=== PATIENT | female | born 1955 | race Caucasian/White ===

== ENCOUNTER → 2018-02-05 | Outpatient (CLI) | payer BC, MEDICARE | LOC: M CARPUL 09:29 | DX: I51.81 Takotsubo syndrome (principal); E11.9 Type 2 diabetes mellitus without complications; Z79.4 Long term (current) use of insulin | CPT/HCPCS: 93306 ==

== ENCOUNTER 2018-08-23 12:48 | Inpatient (IN) | payer BC, MEDICARE ==
[~2018-08-23] VITALS: Ht 160 cm; Wt 39.7 kg
[2018-08-23] MEDS ORDERED: ONDANSETRON 4MG/2ML VIAL (J2405) IV ONE (13:15)
[2018-08-23] MEDS ORDERED: NS 1,000 ML IV ONE (13:15)
[2018-08-23 13:53] LABS: BASO # 0.1 10^3/uL (0.0-0.2); BASO % 0.3 % (0.0-1.0); HEMATOCRIT 36.8 % (36.0-47.0); HEMOGLOBIN 12.7 g/dl (12.0-15.5); LYMPH # 1.3 10^3/uL (1.5-4.5); LYMPH % 5.5 % (24.0-44.0); MEAN CORPUSCULAR HEMOGLOBIN 30.6 pg (27.0-33.0); MEAN CORPUSCULAR HGB CONC 34.5 g/dl (32.0-36.5); MEAN CORPUSCULAR VOLUME 88.7 fl (80.0-96.0); MONO % 8.8 % (0.0-5.0); NEUTROPHILS # 19.3 10^3/uL (1.8-7.7); NEUTROPHILS % 84.4 % (36.0-66.0); PLATELET COUNT, AUTOMATED 319 10^3/uL (150-450); RED BLOOD COUNT 4.15 10^6/uL (4.00-5.40); WHITE BLOOD COUNT 22.9 10^3/uL (4.0-10.0)
[2018-08-23 14:22] LABS: ALBUMIN 2.9 GM/DL (3.2-5.2); ALT/SGPT 30 U/L (12-78); AMYLASE 16 U/L (25-115); BILIRUBIN,DIRECT 0.3 MG/DL (0.0-0.2); BILIRUBIN,TOTAL 0.8 MG/DL (0.2-1.0); BLOOD UREA NITROGEN 24 MG/DL (7-18); CALCIUM LEVEL 8.8 MG/DL (8.8-10.2); CARBON DIOXIDE LEVEL 21 MEQ/L (21-32); CHLORIDE LEVEL 95 MEQ/L (98-107); CPK CREATINE PHOSPHOKINASE 217 U/L (26-192); CREATININE FOR GFR 0.72 MG/DL (0.55-1.30); GLOMERULAR FILTRATION RATE > 60.0 (>45); GLUCOSE, FASTING 188 MG/DL (70-100); LIPASE 42 U/L (73-393); MB/CK RELATIVE INDEX 1.15 (< OR =4); SODIUM LEVEL 133 MEQ/L (136-145); TOTAL PROTEIN 6.8 GM/DL (6.4-8.2); TROPONIN I < 0.02 NG/ML (< 0.10)
--- NOTE | 2018-08-23 14:22 | REP ---
Chest x-ray: Two views. History: Abdominal pain. Comparison chest x-ray: April 29, 2015. Findings: The lungs are hyperinflated consistent with COPD. This is not a new finding. There is however a new density and fullness in the right hilus with a linear opacity in the right upper lobe consistent with atelectasis. The minor fissure is elevated. The findings are suspicious for a central pulmonary malignancy with secondary atelectasis in the right upper lobe. CT scanning should be considered. Lung vickers are otherwise clear. Heart size is normal. The patient is extremely thin. Impression: Fullness in the right hilus with upward retraction and atelectasis in the right upper lobe. Suspect a central right upper lobe malignancy with secondary atelectasis. Consider chest CT. Hyperinflation consistent with COPD. Otherwise unchanged. Electronically Signed by Tee Goodman MD 08/23/2018 02:39 P
[2018-08-23 14:32] LABS: INFLUENZA A AMPLIFICATION NEGATIVE (NEGATIVE); INFLUENZA B AMPLIFICATION NEGATIVE (NEGATIVE)
[2018-08-23] MEDS ORDERED: ISOVUE-370 76% 100ML VIAL (Q9967) As Ordered ONE (14:44)
--- NOTE | 2018-08-23 15:21 | REP ---
Clinical: Abdominal pain with nausea and vomiting. Technique: Axial contrast enhanced images from the lung bases to the pubic symphysis using 100 ml Isovue 370 intravenous contrast material with coronal and sagittal re-formations. Comparison: None. Findings: Ill-defined alveolar opacities primarily involving the left base and to a much lesser extent the right base likely represent acute pneumonia and should be correlated clinically. Liver, spleen, atrophic pancreas, gallbladder, right adrenal gland and bilateral kidneys appear normal. 2.4 cm left adrenal mass cannot be further classified by current examination. The enteric system is without obstruction or acute inflammatory process. Bladder is unremarkable. Evidence of prior hysterectomy noted. No ascites. No free air. No obvious adenopathy. Abdominal aorta and vasculature demonstrates atherosclerotic changes without aneurysm or dissection. Musculoskeletal structures are intact. Impression: 1. Ill-defined basilar lung opacities (left greater than right) suggest acute pneumonia and require follow-up and correlation. 2. 2.4 cm heterogeneous left adrenal mass cannot be further characterized by current examination. Differential diagnosis would include atypical adenoma as well as malignancy. 3. No further acute abdominopelvic pathology appreciated. Electronically Signed by Dinesh Mckeon MD 08/23/2018 03:11 P
[2018-08-23] MEDS ORDERED: ESCI20TA PO (15:45)
[2018-08-23] MEDS ORDERED: SIMV40TA2 PO (15:45)
[2018-08-23] MEDS ORDERED: CARV3.12 PO (15:45)
[2018-08-23] MEDS ORDERED: DICY20TA PO (15:45)
[2018-08-23] MEDS ORDERED: LISI-1046 PO (15:45)
[2018-08-23] MEDS ORDERED: PANT40TA3 PO (15:45)
[2018-08-23] MEDS ORDERED: GABA-843 PO (15:45)
[2018-08-23] MEDS ORDERED: MONT10TA2 PO (15:45)
--- NOTE | 2018-08-23 15:46 | REP ---
CT chest with IV contrast: History: Rule out right lung malignancy. Comparison is made with today's chest x-ray which is abnormal. CT contrast dose: 99 mL of intravenous Isovue 370. CT findings: There is no evidence of pleural or pericardial effusion. There is a band-like area of consolidation with volume loss in the right upper lobe. The minor fissure is retracted upward. There is some spiculation along the superior aspect of this which could reflect a neoplastic lesion. The spiculated area measures 2.6 cm in greatest diameter. Central to this is a band-like area of opacity with some adjacent consolidation. There is a tessa-carinal adenopathy and subcarinal adenopathy. There is some narrowing of the bronchus intermedius and there is obstruction or narrowing of segmental upper lobe bronchi centrally. This suggests bronchogenic malignancy. The superior vena cava is patent although narrowed at this level just above the right atrium. There are a few normal-sized AP window region lymph nodes in the left mediastinum. The subcarinal node measures 1.6 x 2.3 cm. There is some increased peribronchovascular markings in the left lower lobe and lingula which may reflect inflammatory changes. A small nonsolid partially cystic nodule is seen in the left upper lobe. This measures 12 mm. There is a left adrenal mass with heterogeneous enhancement suspicious for metastasis. This measures 2.7 x 2.1 cm. Visualized upper abdominal structures are otherwise unremarkable. Bone window settings show no bony destructive lesion. 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 There are inflammatory changes in the left lower lobe and left upper lobe. 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 Consider histologic sampling. Electronically Signed by Tee Goodman MD 08/23/2018 04:26 P
[2018-08-23] MEDS ORDERED: PROMETHAZINE INJ 25 MG/ML VIAL (J2550) IV ONE (16:00)
[2018-08-23] MEDS ORDERED: LevoFLOXacin IV 750 MG in APPROPRIATE DILUENT 1 EA IV ONE (16:00)
[2018-08-23] MEDS ORDERED: VITA100066 PO (16:15)
[2018-08-23] MEDS ORDERED: VITA500T PO (16:15)
[2018-08-23] MEDS ORDERED: ASPI81TA26 PO (16:15)
[2018-08-23] MEDS ORDERED: ZOFR4TAB16 PO (16:15)
[2018-08-23] MEDS ORDERED: WOMETAB2 PO (16:15)
[2018-08-23] MEDS ORDERED: VITA400C67 PO (16:15)
[2018-08-23] MEDS ORDERED: TRES1INJ2 SC (16:15)
[2018-08-23] MEDS ORDERED: INSUH10VL SC (16:15)
[2018-08-23] MEDS ORDERED: MAALOX 30 ML SUSP *UDC PO PRN (16:45)
[2018-08-23] MEDS ORDERED: MOM 30ML SUSPENSION UDC PO PRN (16:45)
[2018-08-23] MEDS ORDERED: ACETAMINOPHEN TAB 650MG DOSE (2X325MG) PO PRN (16:45)
[2018-08-23] MEDS ORDERED: DEXTROSE 50% 50 ML SYRINGE IV PRN (17:00)
[2018-08-23] MEDS ORDERED: GLUCOSE 4 GM CHEW TABLET PO PRN (17:00)
[2018-08-23] MEDS ORDERED: GLUCAGON FOR INJ 1 MG VIAL (J1610) SC PRN (17:00)
--- NOTE | 2018-08-23 17:03 | HPEPDOC ---
General Date of Admission Primary Care Physician: A Attending Physician: TREVOR STYLES MD Chief Complaint The patient is a 63-year-old female admitted with a reason for visit of Vomiting / Loss Of Appetite. Source: Patient, Family Exam Limitations: No limitations Timing/Duration: Day(s) (2 days) History of Present Illness This is a 63 years old white female with past medical history of multiple medical problems including COPD, diabetes mellitus, hypertension, asthma, came to ER with chief complaint of nausea, vomiting since last 2 days. Patient was unable to keep anything down. Denies any shortness of breath or other respiratory symptoms. Denies any weight loss and lost few months. No fever, no abdominal pain Home Medications Scheduled (Tresiba Flextouch) 100 Unit/Ml Inj, 10 UNIT SC DAILY, (Reported) (Womens 50+ Multi Vitamin) 1 Tab Tab, 1 TAB PO DAILY, (Reported) Ascorbic Acid (Vitamin C) 500 Mg Tab, 500 MG PO BID, (Reported) Aspirin (Aspirin 81) 81 Mg Tab, 81 MG PO DAILY, (Reported) Carvedilol (Carvedilol) 3.125 Mg Tab, 3.125 MG PO BID, (Reported) Cholecalciferol (Vitamin D) 1,000 Unit Tab, 1,000 UNIT PO DAILY, (Reported) Dicyclomine HCl (Dicyclomine HCl) 20 Mg Tab, 20 MG PO WM, (Reported) Escitalopram Oxalate (Escitalopram Oxalate) 20 Mg Tab, 20 MG PO DAILY, (Reported) Gabapentin (Gabapentin) 300 Mg Cap, 300 MG PO TID, (Reported) Insulin Aspart (Novolog) 100 U/Ml Inj, 1 DOSE SC WM, (Reported) PER SLIDING SCALE Lisinopril (Lisinopril) 2.5 Mg Tab, 2.5 MG PO QHS, (Reported) Montelukast Sodium (Montelukast Sodium) 10 Mg Tab, 10 MG PO QHS, (Reported) Pantoprazole Sodium (Pantoprazole Sodium) 40 Mg Tab, 40 MG PO QPM, (Reported) Simvastatin - High Dose (Simvastatin) 40 Mg Tab, 40 MG PO QHS, (Reported) Vitamin E (Vitamin E-400) 400 Unit Cap, 400 UNIT PO DAILY, (Reported) Scheduled PRN Ondansetron HCl (Zofran) 4 Mg Tab, 4 MG PO TID PRN for NAUSEA OR VOMITING, (Reported) Allergies Coded Allergies: Penicillins (Verified Allergy, Unknown, 08/23/18) Sulfa (Sulfonamide Antibiotics) (Verified Allergy, Unknown, 08/23/18) Past Medical History Medical History Diabetes mellitus, hypertension, hyperlipidemia, asthma, COPD Surgical History None Family History Significant Family History: No pertinent family hx Social History * Smoker: former Smoker, quit greater than 1 year Review of Systems Constitutional: Denies: Chills, Fever, Night Sweats Eyes: Denies: Pain, Vision change ENT: Denies: Head Aches, Ear Pain, Dysphagia Skin: Denies: Rash, Lesions, Breakdown Pulmonary: Denies: Dyspnea, Cough Cardiovascular: Denies: Chest Pain, Palpitations, Orthopnea, Paroxysmal Noc. Dyspnea, Lt Headedness Gastrointestinal: Reports: Nausea, Vomiting; Denies: Abdominal Pain, Diarrhea Genitourinary: Denies: Dysuria, Frequency, Incontinence, Retention Hematologic: Denies: Bruising, Bleeding Excessively Musculoskeletal: Denies: Neck Pain, Back Pain, Joint Pain, Muscle Pain, Spasms Neurological: Denies: Weakness, Numbness, Change in speech, Confusion Psych: Reports: Mood Normal; Denies: Depression, Memory Issues Physical Examination General Exam: Positive: Alert, No Acute Distress Eye Exam: Positive: PERRLA, Conjunctiva & lids normal, EOMI; Negative: Sclera icteric ENT Exam: Positive: Atraumatic, Mucous membr. moist/pink, Pharynx Normal Neck Exam: Positive: Supple; Negative: JVD, thyromegaly Chest Exam: Positive: Clear to auscultation, Normal air movement Heart Exam: Positive: Rate Normal, Regular Rhythm, Normal S1, Normal S2; Negative: Murmurs, Rubs Telemetry: Positive: No significant arrhythmia Abdomen Exam: Positive: Normal bowel sounds, Soft; Negative: Tenderness, Hepatospenomegaly Extremity Exam: Positive: Normal pulses; Negative: Clubbing, Cyanosis, Edema Skin Exam: Positive: Nl turgor and temperature; Negative: Breakdown, Lesion Neuro Exam: Positive: Normal Gait, Normal Speech, Cranial Nerves 3-12 NL, Reflexes 2+ Psych Exam: Positive: Mental status NL, Mood NL, Oriented x 3 Vital Signs Vital Signs Date Time Temp Pulse Resp B/P (MAP) Pulse Ox O2 Delivery O2 Flow Rate FiO2 08/23/18 12:59 08/23/18 12:48 96.2 88 18 98 Room Air Laboratory Data Labs 24H Laboratory Tests 2 08/23/18 13:02: Bedside Glucose (Misc Panel) 173H 08/23/18 13:38: Immature Granulocyte % (Auto) 1.0, White Blood Count 22.9H, Red Blood Count 4.15, Hemoglobin 12.7, Hematocrit 36.8, Mean Corpuscular Volume 88.7, Mean Corpuscular Hemoglobin 30.6, Mean Corpuscular Hemoglobin Concent 34.5, Red Cell Distribution Width 12.8, Platelet Count 319, Neutrophils (%) (Auto) 84.4H, Lymphocytes (%) (Auto) 5.5L, Monocytes (%) (Auto) 8.8H, Eosinophils (%) (Auto) 0.0, Basophils (%) (Auto) 0.3, Neutrophils # (Auto) 19.3H, Lymphocytes # (Auto) 1.3L, Monocytes # (Auto) 2.0H, Eosinophils # (Auto) 0.0, Basophils # (Auto) 0.1, Nucleated Red Blood Cells % (auto) 0.0, Anion Gap 17H, Glomerular Filtration Rate > 60.0, Calcium Level 8.8, Aspartate Amino Transf (AST/SGOT) 32, Alanine Aminotransferase (ALT/SGPT) 30, Alkaline Phosphatase 160H, Total Bilirubin 0.8, Direct Bilirubin 0.3H, Total Creatine Kinase 217H, Creatine Kinase MB 2.0, Creatine Kinase MB Relative Index 1.15, Troponin I < 0.02, Total Protein 6.8, Albumin 2.9L, Albumin/Globulin Ratio 0.74L, Amylase Level 16L, Lipase 42L 08/23/18 13:39: Lactic Acid Level 2.0, Influenza Type A (RT-PCR) NEGATIVE, Influenza Type B (RT- PCR) NEGATIVE, Respiratory Syncytial Virus (RT-PCR NEGATIVE 08/23/18 16:05: Bedside Glucose (Misc Panel) 197H CBC/BMP Laboratory Tests 08/23/18 13:38 Red Blood Count 4.15, Mean Corpuscular Volume 88.7, Mean Corpuscular Hemoglobin 30.6, Mean Corpuscular Hemoglobin Concent 34.5, Red Cell Distribution Width 12.8, Neutrophils (%) (Auto) 84.4 H, Lymphocytes (%) (Auto) 5.5 L, Monocytes (%) (Auto) 8.8 H, Eosinophils (%) (Auto) 0.0, Basophils (%) (Auto) 0.3, Neutrophils # (Auto) 19.3 H, Lymphocytes # (Auto) 1.3 L, Monocytes # (Auto) 2.0 H, Eosinophils # (Auto) 0.0, Basophils # (Auto) 0.1 Microbiology Microbiology 08/23/18 Blood Culture, Received Pending 08/23/18 Blood Culture, Received Pending Problems (1) Pneumonia Status: Acute Response to Treatment: Compensated Problem Text: 63 years old white female with past medical history of COPD, asthma, ex-smoker, quit about 30 years ago was diagnosed with a right upper lobe mass and possible pneumonia. Patient is cachectic looking, but does not give any history of respiratory symptoms or weight loss Admit patient to medical floor as inpatient IV fluid normal saline at 75 mL per hour IV PPI IV Zofran when necessary Patient did receive 1 dose of Levaquin. Continue the same Pneumonia most likely has postobstructive in nature, discussed with Dr. Patterson. 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 There are inflammatory changes in the left lower lobe and left upper lobe. 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 Consider histologic sampling. Guest discussed with Dr. Patterson, the patient gets the bronchoscopy done and a biopsy performed in oncology can be called in for staging of the disease and further management. I discussed with patient and her kindergarten teacher at the bedside and informed them about the mass and also informed them about further workup needed and they both agreed Plan / VTE VTE Prophylaxis Ordered?: Yes VTE Exclusion Mechanical Proph: Other (bilateral SCDs) TREVOR STYLES MD Aug 23, 2018 17:03
[2018-08-23] MEDS: HumaLOG INSULIN (NovoLOG) PER UNIT SC SCH ×2 (18:03→21:00)
[2018-08-23] MEDS: NS 1,000 ML IV SCH (18:52)
[2018-08-23 19:00] VITALS: BP 150/66
[2018-08-23] MEDS ORDERED: HEPARIN SOD (PORCINE) 5000 UNITS/ML VIAL SC SCH (20:00)
[2018-08-23] MEDS ORDERED: HumaLOG INSULIN (NovoLOG) PER UNIT SC ONE (20:00)
[2018-08-23] MEDS ORDERED: PANTOPRAZOLE 40MG TAB (PROTONIX) PO SCH (21:00)
--- NOTE | 2018-08-23 21:10 | ECGEPIP ---
Stationary ECG Study [facility] - ED Test Date: 2018-08-23 Pat Name: VIKA LAWRENCE Department: Room: - Gender: F Seed [employer] Picker: ANURADHA : [id number] Requested By: OMAYRA Hensley PA-C Order Number: [id number] Reading MD: Reji López Measurements Intervals [place] Rate: 73 P: 79 AL: 159 QRS: 87 QRSD: 73 T: 73 QT: 407 QTc: 450 Interpretive Statements SINUS RHYTHM POSSIBLE LEFT ATRIAL ENLARGEMENT Delayed anterior R wave progression Nonspecific ST-T wave abnormalities which have evolved from tracing last done 03-04 Electronically Signed On 08-23-2018 21:09:59 EDT by Reji López
[2018-08-23] MEDS: MONTELUKAST 10 MG TAB PO SCH (21:58)
[2018-08-23] MEDS: GABAPENTIN 300 MG CAP PO SCH (21:58)
[2018-08-23] MEDS: CARVedilol 3.125 MG TAB PO SCH (21:59)
[2018-08-23] MEDS: ASCORBIC ACID 500 MG TAB PO SCH (21:59)
[2018-08-23] MEDS: SIMVASTATIN 40 MG TAB PO SCH (21:59)
[2018-08-23] MEDS: DOCUSATE SODIUM 100 MG CAP PO SCH (21:59)
[2018-08-23 22:00] VITALS: BP 125/58
[2018-08-23] MEDS: LISINOPRIL *2.5 MG* TAB PO SCH (22:00)
[2018-08-23] MEDS: ONDANSETRON 4MG/2ML VIAL (J2405) IV PRN (23:22)
[2018-08-24] MEDS: ONDANSETRON 4MG/2ML VIAL (J2405) IV PRN ×3 (05:48→22:53)
[2018-08-24 06:00] VITALS: BP 119/82
[2018-08-24 06:21] LABS: HEMATOCRIT 32.5 % (36.0-47.0); HEMOGLOBIN 10.8 g/dl (12.0-15.5); MEAN CORPUSCULAR HEMOGLOBIN 29.8 pg (27.0-33.0); MEAN CORPUSCULAR HGB CONC 33.2 g/dl (32.0-36.5); MEAN CORPUSCULAR VOLUME 89.5 fl (80.0-96.0); PLATELET COUNT, AUTOMATED 311 10^3/uL (150-450); RED BLOOD COUNT 3.63 10^6/uL (4.00-5.40); WHITE BLOOD COUNT 22.5 10^3/uL (4.0-10.0)
[2018-08-24] MEDS: NS 1,000 ML IV SCH ×2 (06:35→08:23)
[2018-08-24 06:55] LABS: ALBUMIN 2.2 GM/DL (3.2-5.2); ALT/SGPT 24 U/L (12-78); BILIRUBIN,TOTAL 0.6 MG/DL (0.2-1.0); BLOOD UREA NITROGEN 25 MG/DL (7-18); CALCIUM LEVEL 8.1 MG/DL (8.8-10.2); CARBON DIOXIDE LEVEL 20 MEQ/L (21-32); CHLORIDE LEVEL 103 MEQ/L (98-107); CREATININE FOR GFR 0.67 MG/DL (0.55-1.30); GLOMERULAR FILTRATION RATE > 60.0 (>45); GLUCOSE, FASTING 206 MG/DL (70-100); POTASSIUM SERUM 3.5 MEQ/L (3.5-5.1); SODIUM LEVEL 135 MEQ/L (136-145); TOTAL PROTEIN 6.2 GM/DL (6.4-8.2)
[2018-08-24] MEDS: TIOTROPIUM INHALER/CAPSULE (SPIRIVA) INH SCH ×2 (08:00→13:15)
[2018-08-24] MEDS ORDERED: VANCOMYCIN HCL 1,000 MG, VIAL MATE ADAPTER 1 EACH in D5W 250 ML IV ONE (09:00)
[2018-08-24] MEDS: ASCORBIC ACID 500 MG TAB PO SCH ×2 (10:34→21:39)
[2018-08-24] MEDS: GABAPENTIN 300 MG CAP PO SCH ×3 (10:35→21:00)
[2018-08-24] MEDS: CARVedilol 3.125 MG TAB PO SCH ×2 (10:36→21:38)
[2018-08-24] MEDS: DOCUSATE SODIUM 100 MG CAP PO SCH ×2 (10:36→21:38)
[2018-08-24] MEDS: PANTOPRAZOLE 40MG INJ (PROTONIX) (C9113) IV SCH (10:36)
[2018-08-24] MEDS: ESCITALOPRAM OXALATE 10 MG TAB (LEXAPRO) PO SCH (10:36)
[2018-08-24] MEDS: HumaLOG INSULIN (NovoLOG) PER UNIT SC SCH ×5 (10:37→21:39)
[2018-08-24] MEDS ORDERED: ALBUTEROL 90 MCG/ACT 8GM HFA INHALER INH PRN (11:15)
--- NOTE | 2018-08-24 12:13 | PHACANCOPD ---
PHARMACY VANCOMYCIN DOSING Pt Demographics Demographics Patient Age:63 , Weight:39.700 , Gender: female Adjusted Body Weight Date: 08/24/18, Adjusted Body Weight: [underweight, use actual for CrCl] Kg Events Past 24 Hours Events Past 24 Hours: NO: Dialysis, Diuretic Therapy, Change in CrCl, Fever, Elevation in WBC, Pending Diagnostics, Pending Procedures, Other Vancomycin Vancomycin indication: pneumonia Vancomycin Target Ranges: 15-20 mcg/ml Vancomycin Load Y/N: Yes Load Dose Date Time Vancomycin Load Dose: 1000mg Date: 08/24 Time: ~11:00 Vancomycin Dose Date: 08/24/18. Current Vancomycin Dose: [500mg IV q12h @20] Intermittent Dosing?: No Labs Labs Item Value Date Time White Blood Count 22.9 10^3/uL H 08/23/18 1338 White Blood Count 22.5 10^3/uL H 08/24/18 0559 Creatinine 0.72 MG/DL 08/23/18 1338 Creatinine 0.67 MG/DL 08/24/18 0559 Micro Microbiology 08/23/18 Blood Culture, Received Pending 08/23/18 Blood Culture, Received Pending Creatinine Clearance Date:08/24/18. Creatinine Clearance: [~61 ml/min using actual BW]. Assessment and Plan Maintaining Current Dose?: Yes Reason for dose change: No Dose Change Pharmacist Note Pharmacist Note Date: 08/24/18. Pharmacist note: pt has been started on Levaquin and Vancomycin for pneumonia/lung mass. She has not been on vancomycin at our facility in the past. Blood cultures are pending. I have started her on a Vancomycin IV 1g load, followed by 500mg IV q12h ~9 hours later. I will continue to monitor and order a trough after 3-4 doses. Phuc Landeros Pharm.D. Aug 24, 2018 12:13
[2018-08-24] MEDS ORDERED: HumaLOG INSULIN (NovoLOG) PER UNIT SC ONE (12:15)
[2018-08-24] MEDS ORDERED: LEVEMIR (INSULIN DETEMIR) 1 UNITS/0.01ML SC ONE (12:15)
--- NOTE | 2018-08-24 12:54 | CR ---
DATE OF CONSULTATION: 08/24/2018 HISTORY OF PRESENT ILLNESS: Patient is a 63-year-old female with a past medical history of likely chronic obstructive pulmonary disease (COPD), diabetes, hypertension, hyperlipidemia, who presented with a complaint of nausea and vomiting with decreased appetite for the past 2-3 days. Patient reported that she had also noticed some coughing in the past few days as well. She thought that she had a cold and that this is why she also had the complaints of nausea and vomiting as well. She denied any fevers or chills at home. She denied any mucus production. No significant wheezing. She did have some chest discomfort as well in the past 2 days, which she thought was due to a cold. When she continued to feel weak and was not able to tolerate anything orally, she presented then to the emergency department (ED). She denied any history of any weight loss. She is a thin female at baseline and had not noticed any significant weight loss in the past few months. She had no night sweats. She denies being on any inhaler therapy and has not followed up with the call center recruiter in the past. She is a former smoker, however, she says she quit more than 30 or 40 years ago. PAST MEDICAL HISTORY: 1. Diabetes. 2. Hypertension. 3. Hyperlipidemia. 4. COPD. PAST SURGICAL HISTORY: Hysterectomy, tonsillectomy and cataract surgery bilaterally. FAMILY HISTORY: One sister with a history of COPD and lung cancer and another sister with history of cervical cancer. SOCIAL HISTORY: Patient is a former smoker, had previously smoked one pack a day for approximately 10 years, quit 30-40 years ago. There is history of secondhand smoke exposure in her family with multiple family members smoking. Patient is retired, worked in an office and denies any exposures to any toxins or chemicals. PHYSICAL EXAMINATION: Vital signs: Temperature afebrile, 98.0. Pulse 78. Respirations 18. Blood pressure 119/52. Oxygen saturation 94% on room air. General: Patient is a thin, cachectic female, lying in bed, in no apparent distress. Is able to speak in complete sentences. Is not using any accessory muscles of respiration. HEENT: She is normocephalic and atraumatic. Trachea is midline. There is no palpable cervical adenopathy. Mucous membranes are moist. Cardiac: Regular rate and rhythm. Normal S1, S2. Unable to appreciate any murmurs. Lungs: Decreased breath sounds bilaterally. Some crackles at the bases and an occasional inspiratory squeak on the right side. No significant rhonchi or wheezing. Abdomen is soft, nondistended, nontender. Bowel sounds present. Lower extremities: There is no lower extremity edema noted bilaterally. LABORATORY DATA: WBC 22.5, hemoglobin 10.8, platelets 311. Chemistry: Sodium 135, potassium 3.5, chloride 108, bicarbonate 20, BUN 25, creatinine 0.67, glucose 206. Lactic acid was 2.0. IMAGING: CT chest showed in the right upper lobe a band-like mass extending into the fissure with spiculation as well as another area more medially in the right upper lobe, which is also a band-like mass. There appears to be some endobronchial obstruction to the right upper lobe anterior segment as well as some narrowing in the bronchus intermedius and some post obstructive collapse in the right upper lobe segments. In the right middle lobe there is some bronchiectasis and some mild scarring. In the left upper lobe lingular segment there is some mild bronchiectasis and some peribronchovascular thickening and small ground-glass opacities. In the left lower lobe there is more significant ground-glass opacity and some atelectasis. There is some enlarged large lymph nodes in the subcarinal and right paratracheal region. There is also an adrenal mass noted, which is approximately 2.4-2.7 cm in size and heterogeneous, suspicious for possible malignant lesion. There is some emphysematous changes noted bilaterally. ASSESSMENT AND PLAN: Ms. Villarreal is a 63-year female with a history of diabetes, hypertension, hyperlipidemia, with a history of likely chronic obstructive pulmonary disease, although patient denies prior history of any lung issues including COPD and had not been on inhalers in the past. She is a former smoker, and there is a family history of lung cancer in her sister. She presented with nausea and vomiting. The patient had also been having some cough, nonproductive in the past few days as well. CT chest showed right upper lobe band-like mass with spiculated as well as another area of a band-like mass extending medially. There does appear to be endobronchial obstruction to the right upper lobe anterior segment and some post obstructive collapse in the right upper lobe segments. She also has some ground-glass opacities and peribronchovascular thickening and infiltrates in the left lung. The patient did have leukocytosis on admission, however was afebrile. Her findings are suspicious for a primary lung malignancy with a secondary postobstructive pneumonia possibly as well as a possible pneumonia in the left lung. Patient is not requiring any nasal cannula oxygen supplementation currently, and her blood pressure has remained stable. She is from the community, therefore would continue antibiotics with Levaquin. Vancomycin was added for possible methicillin-resistant Staphylococcus aureus (MRSA). However, we will check a MRSA screen and if negative can discontinue the vancomycin. Would check sputum culture and followup the results of her blood culture. Given her smoking history and evidence of emphysema on imaging, patient likely does have a component of COPD. Will start her on Spiriva for maintenance inhaler and continue with albuterol as needed. Discussed with the patient and her son at bedside about the results of her CT chest and that there is a high suspicion for a possible endobronchial lesion and malignancy. Discussed with them about bronchoscopy and endobronchial ultrasound (EBUS) with transbronchial needle aspiration (TBNA) of her mediastinal lymphadenopathy for diagnosis and staging, and patient is agreeable for bronchoscopy and EBUS with TBNA. Discussed with them the risks of the procedure including general anesthesia as well as the risk for pneumothorax, bleeding, infection and prolonged intubation. Will plan to add the patient on to the operating room (OR) schedule for Sunday. Would make her nothing by mouth at midnight on Sunday and hold her prophylactic dose of Lovenox for Sunday morning. Patients nausea and vomiting is improving with zofran and IVF hydration. cont with gentle hydration. Hg decreased, possibly dilutional. Would cont to monitor and check stool occult blood. CT A/P did not show any acute process in abdomen besides the previously mentioned adrenal mass which I did mention to the patient that will likely need further work-up such as imaging to more complete evaluate the lesion. DAMIEND
[2018-08-24] MEDS: ENOXAPARIN 40 MG/0.4 ML SYRINGE (J1650) SC SCH (12:55)
[2018-08-24 14:00] VITALS: BP 114/55
--- NOTE | 2018-08-24 14:06 | IPNPDOC ---
Date Seen The patient was seen on 08/24/18. Progress Note SUBJECTIVE: Patient is a 63 years old white female with past medical history of COPD, asthma, ex-smoker, quit about 30 years ago was diagnosed with a right upper lobe mass and possible pneumonia on abx. Patient said she is doing better today. She continues to c/o productive cough and Abd muscle ache from coughing. Denied fever, chills, chest pain,headache or vomiting OBJECTIVE PHYSICAL EXAMINATION: VITAL SIGNS: Please see below. Physical exam Gen: NAD, healthy appearing , HEENT: normocephalic, atraumatic, no discharge from ears or nose, no oropharyngeal erythema or exudate, neck is supple, no lymphadenopathy, trachea midline CVS: RRR, normal S1n S2, no murmur, rubs, or gallops, no edema, no jvd Resp: LCTAB, no rhonchi, wheezes or crackles, productive cough, coarse breath s ounds b/l Abd : soft nontender, normal bowel sounds, no rebound tenderness or guarding MSK: no swelling, full range of motion, strength 5/5 Neuro: AOAx3, no confusion, no focal deficit Psych: normal mood and affect, good judgment LABORATORY DATA, IMAGING STUDIES, MICROBIOLOGY: Please see below. 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 There are inflammatory changes in the left lower lobe and left upper lobe. 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 Consider histologic sampling. ASSESSMENT AND PLAN: (1) Pneumonia Status: Acute Response to Treatment: Compensated Pneumonia most likely has postobstructive in naturev Patient is cachectic looking, but does not give any history of respiratory symptoms or weight loss IV PPI IV Zofran when necessary c/w levaquin and vanco prn cough medicine q4h In the meantime, will continue patient on carb consistent diet with fingerstick blood sugar coverage Hold aspirin Continue all other home medications (2) Mass of right lung Status: Acute Response to Treatment: Stable Problem Text: bronchoscopy done and a biopsy to be done next week c/ws home meds for your chronic conditions dvt ppx DISPOSITION: . VS, I&O, 24H, Fishbone Vital Signs/I&O Vital Signs Date Time Temp Pulse Resp B/P (MAP) Pulse Ox O2 Delivery O2 Flow Rate FiO2 08/24/18 10:36 70 110/50 08/24/18 06:00 98.0 18 94 08/23/18 12:48 Room Air I&O- Last 24 Hours up to 6 AM 08/24/18 06:00 Intake Total 2245 ml Output Total 400 ml Balance 1845 ml Laboratory Data 24H LABS Laboratory Tests 2 08/23/18 16:05: Bedside Glucose (Misc Panel) 197H 08/23/18 17:34: Bedside Glucose (Misc Panel) 237H 08/24/18 05:59: Nucleated Red Blood Cells % (auto) 0.0, Anion Gap 12, Glomerular Filtration Rate > 60.0, Blood Urea Nitrogen 25H, Creatinine 0.67, Sodium Level 135L, Potassium Level 3.5, Chloride Level 103, Carbon Dioxide Level 20L, Calcium Level 8.1L, Aspartate Amino Transf (AST/SGOT) 27, Alanine Aminotransferase (ALT/SGPT) 24, Alkaline Phosphatase 376H, Total Bilirubin 0.6, Total Protein 6.2L, Albumin 2.2#L, Albumin/Globulin Ratio 0.55L CBC/BMP Laboratory Tests 08/24/18 05:59 Red Blood Count 3.63 L, Mean Corpuscular Volume 89.5, Mean Corpuscular Hemoglobin 29.8, Mean Corpuscular Hemoglobin Concent 33.2, Red Cell Distribution Width 12.8, Calcium Level 8.1 L, Aspartate Amino Transf (AST/SGOT) 27, Alanine Aminotransferase (ALT/SGPT) 24, Alkaline Phosphatase 376 H, Total Bilirubin 0.6, Total Protein 6.2 L, Albumin 2.2 #L Microbiology Microbiology 08/23/18 Blood Culture - Preliminary, Resulted No growth after 24 hours . All specim... 08/23/18 Blood Culture - Preliminary, Resulted No growth after 24 hours . All specim... 08/24/18 Gram Stain, Received Pending 08/24/18 Sputum Culture, Received Pending GODWIN GOFDREY MD Aug 24, 2018 14:06
[2018-08-24] MEDS ORDERED: guaiFENesin 200 MG TAB PO PRN (14:30)
[2018-08-24] MEDS: LevoFLOXacin IV 750 MG in APPROPRIATE DILUENT 1 EA IV SCH (18:33)
[2018-08-24] MEDS: VANCOMYCIN HCL 500 MG in D5W MINI-BAG PLUS 100 ML IV SCH (21:37)
[2018-08-24] MEDS: SIMVASTATIN 40 MG TAB PO SCH (21:39)
[2018-08-24] MEDS: MONTELUKAST 10 MG TAB PO SCH (21:39)
[2018-08-24] MEDS: LISINOPRIL *2.5 MG* TAB PO SCH (21:39)
[2018-08-24 22:00] VITALS: BP 116/53
[2018-08-25] MEDS: ONDANSETRON 4MG/2ML VIAL (J2405) IV PRN (02:21)
[2018-08-25 06:00] VITALS: BP 134/63
[2018-08-25 06:09] LABS: HEMATOCRIT 32.3 % (36.0-47.0); HEMOGLOBIN 10.7 g/dl (12.0-15.5); MEAN CORPUSCULAR HEMOGLOBIN 29.6 pg (27.0-33.0); MEAN CORPUSCULAR HGB CONC 33.1 g/dl (32.0-36.5); MEAN CORPUSCULAR VOLUME 89.2 fl (80.0-96.0); PLATELET COUNT, AUTOMATED 357 10^3/uL (150-450); RED BLOOD COUNT 3.62 10^6/uL (4.00-5.40); WHITE BLOOD COUNT 20.3 10^3/uL (4.0-10.0)
[2018-08-25 06:53] LABS: BLOOD UREA NITROGEN 18 MG/DL (7-18); CALCIUM LEVEL 8.1 MG/DL (8.8-10.2); CARBON DIOXIDE LEVEL 22 MEQ/L (21-32); CHLORIDE LEVEL 104 MEQ/L (98-107); CREATININE FOR GFR 0.53 MG/DL (0.55-1.30); GLOMERULAR FILTRATION RATE > 60.0 (>45); GLUCOSE, FASTING 199 MG/DL (70-100); MAGNESIUM LEVEL 1.9 MG/DL (1.8-2.4); PHOSPHORUS LEVEL 1.5 MG/DL (2.5-4.9); POTASSIUM SERUM 3.6 MEQ/L (3.5-5.1); SODIUM LEVEL 135 MEQ/L (136-145)
[2018-08-25] MEDS: ALBUTEROL SULFATE 2.5 MG/0.5 ML INH NEB SOLN NEB SCH ×3 (08:00→19:55)
[2018-08-25] MEDS: TIOTROPIUM INHALER/CAPSULE (SPIRIVA) INH SCH (08:01)
[2018-08-25] MEDS: HumaLOG INSULIN (NovoLOG) PER UNIT SC SCH ×4 (09:30→21:00)
[2018-08-25] MEDS ORDERED: POTASSIUM PHOSPHATE INJ 30 MMOL in D5W 500 ML IV ONE (10:00)
[2018-08-25] MEDS: DOCUSATE SODIUM 100 MG CAP PO SCH ×2 (10:54→22:13)
[2018-08-25] MEDS: GABAPENTIN 300 MG CAP PO SCH ×3 (10:54→22:14)
[2018-08-25] MEDS: PANTOPRAZOLE 40MG INJ (PROTONIX) (C9113) IV SCH (10:54)
[2018-08-25] MEDS: ESCITALOPRAM OXALATE 10 MG TAB (LEXAPRO) PO SCH (10:57)
[2018-08-25] MEDS: CARVedilol 3.125 MG TAB PO SCH ×2 (10:57→22:14)
[2018-08-25] MEDS: ENOXAPARIN 40 MG/0.4 ML SYRINGE (J1650) SC SCH (10:58)
[2018-08-25] MEDS: VANCOMYCIN HCL 500 MG in D5W MINI-BAG PLUS 100 ML IV SCH ×2 (11:06→22:11)
[2018-08-25] MEDS ORDERED: HumaLOG INSULIN (NovoLOG) PER UNIT SC SCH ×2 (12:00→21:00)
[2018-08-25] MEDS: ASCORBIC ACID 500 MG TAB PO SCH ×2 (12:31→22:15)
[2018-08-25] MEDS: NS 1,000 ML IV SCH ×2 (12:31→22:17)
[2018-08-25] MEDS: LEVEMIR (INSULIN DETEMIR) 1 UNITS/0.01ML SC SCH (12:52)
--- NOTE | 2018-08-25 13:00 | IPN ---
DATE: 08/25/2018 Patient was seen and examined this morning during rounds. She reports that her nausea and vomiting has improved. She has been able to tolerate some meals. She does note some increasing cough, which is not productive much. She does have some slight shortness of breath as well. She has not noticed any significant wheezing, although does note occasional wheezing sounds when coughing. PHYSICAL EXAMINATION: Temperature 99, pulse 77, respirations 18, blood pressure 134/63, oxygen saturation 96% on room air. General: Patient is a thin, cachectic female, is sitting in the chair, in no apparent distress. Is able to speak in complete sentences. Is not using any accessory muscles for respiration. HEENT: She is normocephalic, atraumatic. Trachea is midline. There is no palpable cervical adenopathy. Mucous membranes are moist. Cardiac: Regular rate and rhythm. Normal S1, S2. Unable to appreciate any murmurs. Lungs: There is slightly diminished breath sounds bilaterally with no wheezing, rhonchi or crackles. Abdomen is soft, nontender, nondistended. Bowel sounds are present. Lower extremities: There is no lower extremity noted bilaterally. LABS: WBC 20.3, hemoglobin 10.7, platelets 351. Chemistry: Sodium 135, potassium 3.6, chloride 104, bicarbonate 22, BUN 18, creatinine 0.53. Glucose is 199. Phosphorus is 1.5. ASSESSMENT AND PLAN: Ms. Villarreal is a 63-year female with a history of diabetes, hypertension, hyperlipidemia, history of likely chronic obstructive pulmonary disease, former smoker, who presented with the nausea and vomiting as well as some nonproductive cough. She had a CT chest, which showed right upper lobe band-like mass, which was spiculated and another area more medially extending of a band-like mass with evidence of endobronchial obstruction in the right upper lobe anterior segment with some post obstructive collapse in the right upper lobe. She also had some ground-glass opacities and some peribronchovascular thickening and infiltrates in the left lung. Patient did have leukocytosis and there is concern for secondary postobstructive pneumonia from a primary lung malignancy. Secondary postobstructive pneumonia as well as pneumonia as a possible pneumonia in the left lung with a primary lung malignancy in the right upper lobe. Continue with antibiotics with vancomycin and Levaquin. Will followup the results of the MRSA screen, and if negative, can discontinue the vancomycin. Follow up culture results. Continue Spiriva for likely chronic obstructive pulmonary disease (COPD). She does have evidence of emphysema on her imaging. Will change her albuterol inhaler to albuterol nebulizers three times a day as she had been complaining of increasing cough and occasional wheezing with coughing. She did not have any significant wheezing or rhonchi on exam today, however. Patient is planned for a bronchoscopy with endobronchial ultrasound (EBUS) and transbronchial fine needle aspiration (TBFNA) of her lymph nodes tomorrow. Patient is agreeable for the procedure and understands the risks including risk for general anesthesia as well as for pneumothorax, bleeding, infection and prolonged intubation. Patient should be nothing by mouth at midnight and her prophylactic Lovenox on Sunday morning she be held. Continue deep venous thrombosis (DVT) prophylaxis. Hemoglobin and hematocrit has remained stable. CODE STATUS: FULL CODE.
[2018-08-25 14:00] VITALS: BP 148/61
--- NOTE | 2018-08-25 15:22 | IPNPDOC ---
Date Seen The patient was seen on 08/25/18. Progress Note SUBJECTIVE: Patient is a 63 years old white female with past medical history of COPD, asthma, ex-smoker, quit about 30 years ago was diagnosed with a right upper lobe mass and possible pneumonia on abx. Patient said she is doing better today. Her productive cough is improving and as well abd muscle ache from coughing. Denied fever, chills, chest pain,headache or vomiting PHYSICAL EXAMINATION: VITAL SIGNS: Please see below. Gen: NAD, cachetic HEENT: normocephalic, atraumatic, no discharge from ears or nose, no oropharyngeal erythema or exudate, neck is supple, no lymphadenopathy, trachea midline CVS: RRR, normal S1n S2, no murmur, rubs, or gallops, no edema, no jvd Resp: LCTAB, no rhonchi, wheezes or crackles Abd : soft, mildly tender, normal bowel sounds, no rebound tenderness or guarding MSK: no swelling, full range of motion, strength 5/5 Neuro: AOAx3, no confusion, no focal deficit Psych: normal mood and affect, good judgment LABORATORY DATA, IMAGING STUDIES, MICROBIOLOGY: Please see below. 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 There are inflammatory changes in the left lower lobe and left upper lobe. 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 Consider histologic sampling. ASSESSMENT AND PLAN: (1) Pneumonia Status: Acute Pneumonia most likely has postobstructive in nature Patient is cachectic looking, but does not give any history of respiratory symptoms or weight loss IV PPI IV Zofran when necessary c/w levaquin daty 3 and vanco day 2 will f/u vanc trough mrsa nares negative- will dc vanco if pulm agrees prn cough medicine q4h Hold aspirin Continue all other home medications sputum cx pending result (2) Mass of right lung Status: Acute plan for EBUS in the morning npo after midnight except meds hold lovenox after midnight Dr. Patterson following Brittle Diabetic c/w home dose lantus - 10units - give half when patient is NPO c/w insulin sliding scale per patient's home dose f/u hba1c in morning hypoglyemic protocol Eletrolyte abnormalities - replaced electrolytes as needed - monitor bmp c/w home meds for your chronic conditions dvt ppx - lovenox DISPOSITION:going for EBUS in AM . VS, I&O, 24H, Fishbone Vital Signs/I&O Vital Signs Date Time Temp Pulse Resp B/P (MAP) Pulse Ox O2 Delivery O2 Flow Rate FiO2 08/25/18 14:00 97.6 77 18 148/61 (90) 99 08/23/18 12:48 Room Air I&O- Last 24 Hours up to 6 AM 08/25/18 06:00 Intake Total 1731 ml Output Total 1250 ml Balance 481 ml Laboratory Data 24H LABS Laboratory Tests 2 08/24/18 16:46: Bedside Glucose (Misc Panel) 247H 08/24/18 18:47: Bedside Glucose (Misc Panel) 153H 08/24/18 20:17: Bedside Glucose (Misc Panel) 191H 08/25/18 05:44: Nucleated Red Blood Cells % (auto) 0.0, Anion Gap 9, Glomerular Filtration Rate > 60.0, Blood Urea Nitrogen 18, Creatinine 0.53L, Sodium Level 135L, Potassium Level 3.6, Chloride Level 104, Carbon Dioxide Level 22, Calcium Level 8.1L, Phosphorus Level 1.5L, Magnesium Level 1.9 CBC/BMP Laboratory Tests 08/25/18 05:44 Red Blood Count 3.62 L, Mean Corpuscular Volume 89.2, Mean Corpuscular Hemoglobin 29.6, Mean Corpuscular Hemoglobin Concent 33.1, Red Cell Distribution Width 13.0, Calcium Level 8.1 L Microbiology Microbiology 08/23/18 Blood Culture - Preliminary, Resulted No Growth after 48 hours. All Specime... 08/23/18 Blood Culture - Preliminary, Resulted No Growth after 48 hours. All Specime... 08/24/18 MRSA Screen - Final, Complete 08/24/18 Gram Stain - Final, Resulted 08/24/18 Sputum Culture, Resulted Pending GODWIN GODFREY MD Aug 25, 2018 15:22
[2018-08-25] MEDS: LevoFLOXacin IV 750 MG in APPROPRIATE DILUENT 1 EA IV SCH (17:38)
[2018-08-25 22:00] VITALS: BP 115/57
[2018-08-25] MEDS: SIMVASTATIN 40 MG TAB PO SCH (22:15)
[2018-08-25] MEDS: LISINOPRIL *2.5 MG* TAB PO SCH (22:15)
[2018-08-25] MEDS: MONTELUKAST 10 MG TAB PO SCH (22:15)
[2018-08-26] VITALS (8 sets, daily range): BP systolic 104–144; BP diastolic 57–85
[2018-08-26 06:57] LABS: HEMATOCRIT 34.1 % (36.0-47.0); HEMOGLOBIN 11.4 g/dl (12.0-15.5); MEAN CORPUSCULAR HEMOGLOBIN 29.7 pg (27.0-33.0); MEAN CORPUSCULAR HGB CONC 33.4 g/dl (32.0-36.5); MEAN CORPUSCULAR VOLUME 88.8 fl (80.0-96.0); PLATELET COUNT, AUTOMATED 368 10^3/uL (150-450); RED BLOOD COUNT 3.84 10^6/uL (4.00-5.40); WHITE BLOOD COUNT 18.3 10^3/uL (4.0-10.0)
[2018-08-26] MEDS: TIOTROPIUM INHALER/CAPSULE (SPIRIVA) INH SCH (07:08)
[2018-08-26] MEDS: ALBUTEROL SULFATE 2.5 MG/0.5 ML INH NEB SOLN NEB SCH ×3 (07:08→21:55)
[2018-08-26 07:13] LABS: INR 1.09; PARTIAL THROMBOPLASTIN TIME 35.4 SECONDS (25.4-37.6); PROTHROMBIN TIME 14.2 SECONDS (12.1-14.4)
[2018-08-26 07:20] LABS: BLOOD UREA NITROGEN 10 MG/DL (7-18); CARBON DIOXIDE LEVEL 26 MEQ/L (21-32); CHLORIDE LEVEL 104 MEQ/L (98-107); CREATININE FOR GFR 0.53 MG/DL (0.55-1.30); GLOMERULAR FILTRATION RATE > 60.0 (>45); GLUCOSE, FASTING 199 MG/DL (70-100); POTASSIUM SERUM 3.5 MEQ/L (3.5-5.1); SODIUM LEVEL 137 MEQ/L (136-145); VANCOMYCIN LEVEL TROUGH 7.7 UG/ML (10.0-20.0)
[2018-08-26] MEDS: HumaLOG INSULIN (NovoLOG) PER UNIT SC SCH ×4 (07:30→21:05)
[2018-08-26 07:31] LABS: HEMOGLOBIN A1c 9.9 %
[2018-08-26] MEDS: ENOXAPARIN 40 MG/0.4 ML SYRINGE (J1650) SC SCH (07:33)
[2018-08-26] MEDS: LEVEMIR (INSULIN DETEMIR) 1 UNITS/0.01ML SC SCH (07:45)
[2018-08-26] MEDS ORDERED: LEVEMIR (INSULIN DETEMIR) 1 UNITS/0.01ML SC ONE (08:00)
[2018-08-26] MEDS: DOCUSATE SODIUM 100 MG CAP PO SCH ×2 (08:16→20:48)
[2018-08-26] MEDS: ASCORBIC ACID 500 MG TAB PO SCH ×2 (08:16→20:46)
[2018-08-26] MEDS: ESCITALOPRAM OXALATE 10 MG TAB (LEXAPRO) PO SCH (08:16)
[2018-08-26] MEDS: GABAPENTIN 300 MG CAP PO SCH ×3 (08:17→20:48)
[2018-08-26] MEDS: CARVedilol 3.125 MG TAB PO SCH ×2 (08:17→20:48)
[2018-08-26] MEDS: PANTOPRAZOLE 40MG INJ (PROTONIX) (C9113) IV SCH (08:17)
[2018-08-26] MEDS ORDERED: CETACAINE SPRAY 5GM As Ordered ONE (12:29)
[2018-08-26] MEDS ORDERED: ONDANSETRON 4MG/2ML VIAL (J2405) As Ordered ONE (12:57)
[2018-08-26] MEDS ORDERED: MIDAZOLAM INJ 2 MG/2 ML VIAL (J2250) As Ordered ONE (12:57)
[2018-08-26] MEDS ORDERED: LIDOCAINE 2% INJ 100 MG/5 ML SDV (FOR ANES.) As Ordered ONE (12:57)
[2018-08-26] MEDS ORDERED: fentaNYL 100 MCG/2 ML INJECTION (J3010) As Ordered ONE (12:57)
[2018-08-26] MEDS ORDERED: ROCURONIUM BROMIDE 50 MG/5 ML VIAL As Ordered ONE (12:57)
[2018-08-26] MEDS ORDERED: dexameTHASONE 4 MG/ML 1ML VIAL (J1100) As Ordered ONE (12:57)
[2018-08-26] MEDS ORDERED: PROPOFOL 200 MG/20 ML VIAL As Ordered ONE (12:57)
[2018-08-26] MEDS ORDERED: SUGAMMADEX SODIUM 500 MG/5 ML VIAL (BRIDION) As Ordered ONE (13:19)
[2018-08-26] MEDS ORDERED: PHENYLephrine HCL 500 MCG/5 ML (100MCG/ML) SYRINGE (J2370) As Ordered ONE (13:35)
[2018-08-26] MEDS ORDERED: ONDANSETRON 4MG/2ML VIAL (J2405) IV PRN (14:30)
[2018-08-26] MEDS ORDERED: LR 1,000 ML IV SCH (14:30)
[2018-08-26] MEDS ORDERED: MORPHINE 10 MG/ML 1ML VIAL (J2270) IV PRN (14:30)
[2018-08-26] MEDS ORDERED: fentaNYL 100 MCG/2 ML INJECTION (J3010) IV PRN (14:30)
[2018-08-26] MEDS: LevoFLOXacin IV 750 MG in APPROPRIATE DILUENT 1 EA IV SCH (17:15)
--- NOTE | 2018-08-26 17:17 | REP ---
Chest, single AP view, 02:27 p.m., post op: Comparison is 08/23/2018. There is no pneumothorax or pleural fluid collection. There is a focal infiltrate in the left lower lobe as an interval change. The right hilus is enlarged with a band of increased density extending into the right upper lobe consistent with atelectasis, unchanged from 08/23/2018. Cardiac size is normal. Mediastinum and skeletal structures otherwise are unremarkable. Impression: New left lower lobe infiltrate. No pneumothorax or pleural fluid collection. Enlarged right hilus with a band of increased density extending into the right upper lobe, unchanged from 08/23/2018. Electronically Signed by Alvaro Rousseau MD 08/26/2018 05:08 P
--- NOTE | 2018-08-26 17:37 | IPNPDOC ---
Date Seen The patient was seen on 08/26/18. Progress Note SUBJECTIVE: Patient is a 63 years old white female with past medical history of COPD, asthma, ex-smoker, quit about 30 years ago was diagnosed with a right upper lobe mass and possible pneumonia on abx. Patient denied any complain. Her productive cough is improving and as well abd muscle ache from coughing. Denied fever, chills, chest pain,headache or vomiting PHYSICAL EXAMINATION: VITAL SIGNS: Please see below. Gen: NAD, cachetic HEENT: normocephalic, atraumatic, no discharge from ears or nose, no oropharyngeal erythema or exudate, neck is supple, no lymphadenopathy, trachea midline CVS: RRR, normal S1n S2, no murmur, rubs, or gallops, no edema, no jvd Resp: LCTAB, no rhonchi, wheezes or crackles Abd : soft, mildly tender, normal bowel sounds, no rebound tenderness or guard ing MSK: no swelling, full range of motion, strength 5/5 Neuro: AOAx3, no confusion, no focal deficit Psych: normal mood and affect, good judgment LABORATORY DATA, IMAGING STUDIES, MICROBIOLOGY: Please see below. 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 There are inflammatory changes in the left lower lobe and left upper lobe. 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 Consider histologic sampling. ASSESSMENT AND PLAN: (1) Pneumonia Status: Acute Pneumonia most likely has post-obstructive in nature Patient is cachectic looking, but does not give any history of respiratory symptoms or weight loss switch IV PPI to po IV Zofran when necessary c/w levaquin day 4 s/p vanco x day 2- mrsa negative prn cough medicine q4h Hold aspirin Continue all other home medications sputum cx pending final result (2) Mass of right lung Status: Acute plan EBUS and TBNA today npo after midnight except meds hold lovenox after midnight - but resume after biopsy Dr. Patterson following Brittle Diabetic c/w home dose lantus - 10units - give half when patient is NPO c/w insulin sliding scale per patient's home dose f/u hba1c in morning hypoglyemic protocol Electrolyte abnormalities - replaced electrolytes as needed - monitor bmp c/w home meds for your chronic conditions dvt ppx - lovenox DISPOSITION:dc in 1-2 days VS, I&O, 24H, [place] Vital Signs/I&O Vital Signs Date Time Temp Pulse Resp B/P (MAP) Pulse Ox O2 Delivery O2 Flow Rate FiO2 08/26/18 16:00 99.3 81 15 121/57 (78) 94 08/23/18 12:48 Room Air I&O- Last 24 Hours up to 6 AM 08/26/18 06:00 Intake Total 2300 ml Output Total 1900 ml Balance 400 ml Laboratory Data 24H LABS Laboratory Tests 2 08/25/18 20:41: Bedside Glucose (Misc Panel) 220H 08/26/18 06:42: Estimated Mean Plasma Glucose 237H, Hemoglobin A1c 9.9 08/26/18 06:43: Nucleated Red Blood Cells % (auto) 0.0, Prothrombin Time 14.2, Prothromb Time International Ratio 1.09, Activated Partial Thromboplast Time 35.4, Anion Gap 7L, Glomerular Filtration Rate > 60.0, Blood Urea Nitrogen 10, Creatinine 0.53L, Sodium Level 137, Potassium Level 3.5, Chloride Level 104, Carbon Dioxide Level 26, Calcium Level 8.0L, Vancomycin Level Trough 7.7L 08/26/18 14:10: Bedside Glucose (Misc Panel) 117H CBC/BMP Laboratory Tests 08/26/18 06:43 Red Blood Count 3.84 L, Mean Corpuscular Volume 88.8, Mean Corpuscular Hemoglobin 29.7, Mean Corpuscular Hemoglobin Concent 33.4, Red Cell Distribution Width 13.1, Calcium Level 8.0 L Microbiology Microbiology 08/23/18 Blood Culture - Preliminary, Resulted No Growth after 72 hours. All specime... 08/23/18 Blood Culture - Preliminary, Resulted No Growth after 72 hours. All specime... 08/24/18 MRSA Screen - Final, Complete 08/24/18 Gram Stain - Final, Complete 08/24/18 Sputum Culture - Final, Complete GODWIN GODFREY MD Aug 26, 2018 17:37
[2018-08-26] MEDS: LISINOPRIL *2.5 MG* TAB PO SCH (20:48)
[2018-08-26] MEDS: MONTELUKAST 10 MG TAB PO SCH (20:48)
[2018-08-26] MEDS: SIMVASTATIN 40 MG TAB PO SCH (20:48)
--- NOTE | 2018-08-26 21:56 | IPN ---
DATE: 08/26/2018 The patient was seen and examined this morning. She has been nothing by mouth since midnight for her bronchoscopy. She denies any chest pains. No significant wheezing, has an occasional cough although that is improving. No fevers or chills overnight. No further nausea or vomiting. PHYSICAL EXAMINATION: Temperature is 98.4, pulse 53, respirations 18, blood pressure 104/65, oxygen saturation 94% on room air. GENERAL: The patient is a thin, cachectic female who is lying in bed in no apparent distress. Is able to speak in complete sentences. Is not using any accessory muscles for respiration. HEENT: She is normocephalic, atraumatic. Trachea is midline. There is no palpable cervical adenopathy. Mucous membranes are moist. CARDIAC: Regular rate and rhythm. Normal S1, S2. Unable to appreciate any murmurs. LUNGS: There are slightly diminished breath sounds bilaterally with no significant wheezing, rales, or rhonchi. ABDOMEN: Soft, nontender, nondistended. Bowel sounds are present. LOWER EXTREMITIES: There is no lower extremity edema noted bilaterally. LABORATORY DATA: WBC 18.3, hemoglobin 11.4, platelets 368. Chemistry: Sodium 137, potassium 3.5, chloride 104, bicarbonate 26, BUN 10, creatinine 0.53, glucose 199, INR was 1.09. Microbiology: MRSA screen was negative. ASSESSMENT/PLAN: Ms. Villarreal is a 63-year female with a history of diabetes, hypertension, hyperlipidemia, history of COPD, former smoker who presented initially with nausea and vomiting as well as nonproductive cough. CT chest was done which showed right upper lobe band-like mass with some spiculation extending medially with another band-like mass and evidence of endobronchial obstruction in the right upper lobe with some postobstructive collapse. She also had some ground-glass opacities and some peribronchovascular thickening and infiltrates in the left lung. The patient was also noted to have leukocytosis and likely with a postobstructive pneumonia from a primary lung malignancy. She also had a possible pneumonia in the left lung. The patient had a bronchoscopy done today which showed evidence of a friable endobronchial lesion in her right main stem bronchi. Her right upper lobe orifice showed friable edematous mucosa with endobronchial lesion as well partially obstructing her right upper lobe anterior segment. She was also noted to have white thick sputum in the left lung. The patient had biopsies done in the right main stem of the endobronchial lesion as well as biopsies of the friable endobronchial lesion in her right upper lobe. The patient also had RISHABH done with evaluation of her lymph nodes and showed enlarged subcarinal lymph node and right paratracheal lymph node which was also biopsied with FNA. She had a left hilar lymph node which was also mildly increased in size and was also sampled as well for staging. Post bronchoscopy, chest x-ray did not show any evidence of pneumothorax. There is an infiltrate in the left lung base as well as the previously noted band-like opacity in the right upper lobe with some volume loss suggesting right upper lobe collapse. Continue antibiotics with Levaquin. Will discontinue vancomycin given the negative MRSA screen and followup results of the bronchial washing cultures. Followup results of pathology of the biopsy of her endobronchial lesions. Discussed with the patient and her family that the findings are suspicious for possible malignancy. Will also follow the results of her lymph node biopsies for staging. Continue with Spiriva for likely COPD given her smoking history and evidence of emphysema on imaging. Continue with albuterol nebulizers. The patient will be scheduled for a followup visit in our clinic next week to discuss the results of her bronchoscopy. DVT prophylaxis. FULL CODE. Please do not hesitate to call if any further questions or concerns.
[2018-08-27 02:00] VITALS: BP 133/77
[2018-08-27 06:03] VITALS: BP 138/68
[2018-08-27 06:08] LABS: HEMATOCRIT 35.9 % (36.0-47.0); HEMOGLOBIN 11.7 g/dl (12.0-15.5); MEAN CORPUSCULAR HEMOGLOBIN 29.3 pg (27.0-33.0); MEAN CORPUSCULAR HGB CONC 32.6 g/dl (32.0-36.5); MEAN CORPUSCULAR VOLUME 89.8 fl (80.0-96.0); PLATELET COUNT, AUTOMATED 419 10^3/uL (150-450); WHITE BLOOD COUNT 22.1 10^3/uL (4.0-10.0)
[2018-08-27 06:37] LABS: BLOOD UREA NITROGEN 12 MG/DL (7-18); CALCIUM LEVEL 8.8 MG/DL (8.8-10.2); CARBON DIOXIDE LEVEL 26 MEQ/L (21-32); CHLORIDE LEVEL 103 MEQ/L (98-107); CREATININE FOR GFR 0.76 MG/DL (0.55-1.30); GLOMERULAR FILTRATION RATE > 60.0 (>45); GLUCOSE, FASTING 351 MG/DL (70-100); MAGNESIUM LEVEL 1.9 MG/DL (1.8-2.4); PHOSPHORUS LEVEL 3.3 MG/DL (2.5-4.9); POTASSIUM SERUM 4.1 MEQ/L (3.5-5.1); SODIUM LEVEL 138 MEQ/L (136-145)
[2018-08-27 07:44] VITALS: BP 122/61
[2018-08-27] MEDS ORDERED: VANCOMYCIN HCL 500 MG in D5W MINI-BAG PLUS 100 ML IV SCH (08:00)
[2018-08-27] MEDS ORDERED: VANCOMYCIN HCL 1,000 MG, VIAL MATE ADAPTER 1 EACH in D5W 250 ML IV ONE (09:00)
[2018-08-27] MEDS ORDERED: PANTOPRAZOLE 40MG TAB (PROTONIX) PO SCH (09:00)
[2018-08-27] MEDS: ASCORBIC ACID 500 MG TAB PO SCH (09:12)
[2018-08-27] MEDS: GABAPENTIN 300 MG CAP PO SCH (09:12)
[2018-08-27] MEDS: DOCUSATE SODIUM 100 MG CAP PO SCH (09:12)
[2018-08-27 09:13] VITALS: BP 122/61
[2018-08-27] MEDS: ESCITALOPRAM OXALATE 10 MG TAB (LEXAPRO) PO SCH (09:13)
[2018-08-27] MEDS: CARVedilol 3.125 MG TAB PO SCH (09:13)
[2018-08-27] MEDS: LEVEMIR (INSULIN DETEMIR) 1 UNITS/0.01ML SC SCH (09:14)
[2018-08-27] MEDS: ENOXAPARIN 40 MG/0.4 ML SYRINGE (J1650) SC SCH (09:15)
[2018-08-27] MEDS: HumaLOG INSULIN (NovoLOG) PER UNIT SC SCH ×2 (09:15→12:36)
[2018-08-27] MEDS: TIOTROPIUM INHALER/CAPSULE (SPIRIVA) INH SCH (09:54)
[2018-08-27] MEDS: ALBUTEROL SULFATE 2.5 MG/0.5 ML INH NEB SOLN NEB SCH ×2 (09:54→13:35)
--- NOTE | 2018-08-27 09:59 | PHACANCOPD ---
PHARMACY VANCOMYCIN DOSING Pt Demographics Demographics Patient Age:63 , Weight:39.700 , Gender: female Adjusted Body Weight Date: 08/24/18, Adjusted Body Weight: [underweight, use actual for CrCl] Kg Events Past 24 Hours Events Past 24 Hours: YES: Fever, Elevation in WBC Vancomycin Vancomycin indication: pneumonia Vancomycin Target Ranges: 15-20 mcg/ml Vancomycin Load Y/N: Yes Load Dose Date Time Vancomycin Load Dose: 1000mg Date: 08/27 Time: ~0900 Vancomycin Dose Date: 08/27/18. Current Vancomycin Dose: [750 mg IV q12h @21] Intermittent Dosing?: No Labs Labs Item Value Date Time White Blood Count 18.3 10^3/uL H 08/26/18 0643 White Blood Count 22.1 10^3/uL H 08/27/18 0552 Vital Signs Label Value Date Time Patient Temperature 97.8 degrees F 08/27/18 0603 Temperature Source Temporal 08/27/18 0603 Patient Temperature 99.2 degrees F 08/27/18 0744 Temperature Source Temporal 08/27/18 0744 Micro Microbiology 08/23/18 Blood Culture - Preliminary, Resulted No Growth after 72 hours. All specime... 08/23/18 Blood Culture - Preliminary, Resulted No Growth after 72 hours. All specime... 08/26/18 Acid Fast Stain, Received Pending 08/26/18 Mycobacterial Culture, Received Pending 08/26/18 Fungal Smear, Received Pending 08/26/18 Fungal Culture, Received Pending 08/26/18 Gram Stain, Received Pending 08/26/18 Bronchial Aspirate Culture, Received Pending 08/24/18 MRSA Screen - Final, Complete 08/24/18 Gram Stain - Final, Complete 08/24/18 Sputum Culture - Final, Complete Creatinine Clearance Date:08/24/18. Creatinine Clearance: [~47 ml/min using actual BW]. Assessment and Plan Maintaining Current Dose?: Yes Reason for dose change: No Dose Change Pharmacist Note Pharmacist Note Date: 08/27/18. Pharmacist note: Patient being re-started on Vanco, patient has had an increase in WBC and also has been febrile. Her previous regimen of 500 mg q12h resulted in a trough of 7.7. Will re-load her with 1 gram and follow with 750 mg q12h. Pharmacy will continue to monitor and make adjustments if necessary [facility] Aug 27, 2018 09:59
[2018-08-27 10:00] VITALS: BP 111/58
[2018-08-27] MEDS ORDERED: LEVA750T7 PO (12:45)
--- NOTE | 2018-08-27 12:50 | DS.PDOC ---
Discharge Summary General Date of Admission Aug 23, 2018 at 16:35 Date of Discharge 08/27/18 Discharge Summary PROCEDURES PERFORMED DURING STAY: [lung biopsy - EBUS and TBNA]. ADMITTING DIAGNOSES: 1. [lung mass and post-obstructive pneumonia ]. DISCHARGE DIAGNOSES: 1. [lung mass and post-obstructive pneumonia ]. COMPLICATIONS/CHIEF COMPLAINT: Mass Of Right Lung, Pneumonia. HISTORY OF PRESENT ILLNESS: This is a 63 years old white female with past medical history of multiple medical problems including COPD, diabetes mellitus, hypertension, asthma, came to ER with chief complaint of nausea, vomiting since last 2 days. Patient was unable to keep anything down. Denies any shortness of breath or other respiratory symptoms. Denies any weight loss and lost few months. No fever, no abdominal pain HOSPITAL COURSE: Patient is a 63 years old white female with past medical history of COPD, asthma, ex-smoker, quit about 30 years ago was diagnosed with a right upper lobe mass and possible pneumonia on abx. She had a productive cough which has improved. She was treated initially with vancomycin and levaquin for post- obstructive pneumonia, mrsa nares came back negative so vanco was discontinued a fter 2 days. She has been on levaquin for 3 days and will continue outpatient for another 4 days for completion of 7 days treatment , She is s/p EBUS and TBNA on 08/26, without any complications and should follow up with pulmologist (Dr. Pope) for results. Regarding her nausea and vomiting , that has resolved with zofran. Patient said she is a brittle diabetic, so we have been using her home rec ommended dose of insulin to manage her blood sugar level. She can resume her home medications. DISCHARGE MEDICATIONS: Please see below. ALLERGIES: Please see below. PHYSICAL EXAMINATION ON DISCHARGE: VITAL SIGNS: Please see below. Gen: NAD, low BMI HEENT: normocephalic, atraumatic, no discharge from ears or nose, no oropharyngeal erythema or exudate, neck is supple, no lymphadenopathy, trachea midline CVS: RRR, normal S1n S2, no murmur, rubs, or gallops, no edema, no jvd Resp: LCTAB, no rhonchi, wheezes or crackles Abd : soft, mildly tender, normal bowel sounds, no rebound tenderness or guarding MSK: no swelling, full range of motion, strength 5/5 Neuro: AOAx3, no confusion, no focal deficit Psych: normal mood and affect, good judgment LABORATORY DATA: Please see below. IMAGING: [facility] NAME: VIKA LAWRENCE DATE OF : 1955 AGE: 63 SEX: F REPORT #: [id number] ROOM: ED TECHNOLOGIST: YARED DOCTOR: OMAYRA KNIGHT PA-C Ordered for Date&Time: 08/23/18 1309 cc: [~ rep ct ivnm] Service Date&Time: 08/23/18 1313 This report is in Signed status. If this report is in a DRAFT status it has not yet been reviewed by the radiologist for accuracy. Thank you for having your radiology procedures performed at [facility] RADIOLOGY REPORT Date&Time printed: [~ rep prt dt last] [~ rep prt tm last] Page 1 of 1 [place] [address] RADIOLOGY REPORT This report is in Signed status. If this report is in a DRAFT status it has not yet been reviewed by the radiologist for accuracy. Thank you for having your radiology procedures performed at [facility] RADIOLOGY REPORT Date&Time printed: [~ rep prt dt last] [~ rep prt tm last] Page 1 of 1 NAME: VIKA LAWRENCE DATE OF : 1955 AGE: 63 SEX: F REPORT #: [id number] ROOM: ED TECHNOLOGIST: YARED DOCTOR: OMAYRA KNIGHT PA-C Ordered for Date&Time: 08/23/18 1309 cc: [~ rep ct ivnm] Service Date&Time: 08/23/18 1313 EXAMINATION REQUESTED: Chest, 2 view PA, Lat REASON FOR PATIENT VISIT: VOMITING / LOSS OF APPETITE REASON FOR EXAM/COMMENT: Abdominal Pain Chest x-ray: Two views. History: Abdominal pain. Comparison chest x-ray: April 29, 2015. Findings: The lungs are hyperinflated consistent with COPD. This is not a new finding. There is however a new density and fullness in the right hilus with a linear opacity in the right upper lobe consistent with atelectasis. The minor fissure is elevated. The findings are suspicious for a central pulmonary malignancy with secondary atelectasis in the right upper lobe. CT scanning should be considered. Lung vickers are otherwise clear. Heart size is normal. The patient is extremely thin. Impression: Fullness in the right hilus with upward retraction and atelectasis in the right upper lobe. Suspect a central right upper lobe malignancy with secondary atelectasis. Consider chest CT. Hyperinflation consistent with COPD. Otherwise unchanged. Electronically Signed by Tee Goodman MD 08/23/2018 02:39 P DD: Tee Goodman MD 08/23/18 1326 DT: TM 08/23/18 1407 DS: JANEEN 08/23/18 1439 08/23/18 1439 [~ rep ct labl] [facility] NAME: VIKA LAWRENCE DATE OF : 1955 AGE: 63 SEX: F REPORT #: [id number] ROOM: ED TECHNOLOGIST: DINA DOCTOR: OMAYRA KNIGHT PA-C Ordered for Date&Time: 08/23/18 1434 cc: [~ rep ct ivnm] Service Date&Time: 08/23/18 1444 This report is in Signed status. If this report is in a DRAFT status it has not yet been reviewed by the radiolog ist for accuracy. Thank you for having your radiology procedures performed at [facility] RADIOLOGY REPORT Date&Time printed: [~ rep prt dt last] [~ rep prt tm last] Page 2 of 2 [place] [address] RADIOLOGY REPORT This report is in Signed status. If this report is in a DRAFT status it has not yet been reviewed by the radiologist for accuracy. Thank you for having your radiology procedures performed at [facility] RADIOLOGY REPORT Date&Time printed: [~ rep prt dt last] [~ rep prt tm last] Page 1 of 2 NAME: VIKA LAWRENCE DATE OF : 1955 AGE: 63 SEX: F REPORT #: [id number] ROOM: ED TECHNOLOGIST: DINA DOCTOR: OMAYRA D. BOZEK PA-C Ordered for Date&Time: 08/23/18 1434 cc: [~ rep ct ivnm] Service Date&Time: 08/23/18 1444 EXAMINATION REQUESTED: CT Chest with contrast REASON FOR PATIENT VISIT: VOMITING / LOSS OF APPETITE REASON FOR EXAM/COMMENT: requested by radiologist; r/o malignancy right lung CT chest with IV contrast: History: Rule out right lung malignancy. Comparison is made with today's chest x-ray which is abnormal. CT contrast dose: 99 mL of intravenous Isovue 370. CT findings: There is no evidence of pleural or pericardial effusion. There is a band-like area of consolidation with volume loss in the right upper lobe. The minor fissure is retracted upward. There is some spiculation along the superior aspect of this which could reflect a neoplastic lesion. The spiculated area measures 2.6 cm in greatest diameter. Central to this is a band-like area of opacity with some adjacent consolidation. There is a tessa-carinal adenopathy and subcarinal adenopathy. There is some narrowing of the bronchus intermedius and there is obstruction or narrowing of segmental upper lobe bronchi centrally. This suggests bronchogenic malignancy. The superior vena cava is patent although narrowed at this level just above the right atrium. There are a few normal-sized AP window region lymph nodes in the left mediastinum. The subcarinal node measures 1.6 x 2.3 cm. There is some increased peribronchovascular markings in the left lower lobe and lingula which may reflect inflammatory changes. A small nonsolid partially cystic nodule is seen in the left upper lobe. This measures 12 mm. There is a left adrenal mass with heterogeneous enhancement suspicious for metastasis. This measures 2.7 x 2.1 cm. Visualized upper abdominal structures are otherwise unremarkable. Bone window settings show no bony destructive lesion. 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 There are inflammatory changes in the left lower lobe and left upper lobe. 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 Consider histologic sampling. Electronically Signed by Tee Goodman MD 08/23/2018 04:26 P DD: Tee Goodman MD 08/23/18 1517 DT: JULIETH 08/23/18 1538 DS: JANEEN 08/23/18 1626 08/23/18 1626 [~ rep ct labl] NAME: VIKA LAWRENCE DATE OF : 1955 AGE: 63 SEX: F REPORT #: [id number] ROOM: [facility] TECHNOLOGIST: DINA DOCTOR: OMAYRA KNIGHT PA-C Ordered for Date&Time: 08/23/18 1434 cc: [~ rep ct ivnm] Service Date&Time: 08/23/18 1444 EXAMINATION REQUESTED: CT ABD/PEL W/IV CONTRAST ONLY REASON FOR PATIENT VISIT: VOMITING / LOSS OF APPETITE REASON FOR EXAM/COMMENT: abd pain; n/v Clinical: Abdominal pain with nausea and vomiting. Technique: Axial contrast enhanced images from the lung bases to the pubic symphysis using 100 ml Isovue 370 intravenous contrast material with coronal and sagittal re-formations. Comparison: None. Findings: Ill-defined alveolar opacities primarily involving the left base and to a much lesser extent the right base likely represent acute pneumonia and should be correlated clinically. Liver, spleen, atrophic pancreas, gallbladder, right adrenal gland and bilateral kidneys appear normal. 2.4 cm left adrenal mass cannot be further classified by current examination. The enteric system is without obstruction or acute inflammatory process. Bladder is unremarkable. Evidence of prior hysterectomy noted. No ascites. No free air. No obvious adenopathy. Abdominal aorta and vasculature demonstrates atherosclerotic changes without aneurysm or dissection. Musculoskeletal structures are intact. Impression: 1. Ill-defined basilar lung opacities (left greater than right) suggest acute pneumonia and require follow-up and correlation. 2. 2.4 cm heterogeneous left adrenal mass cannot be further characterized by current examination. Differential diagnosis would include atypical adenoma as well as malignancy. 3. No further acute abdominopelvic pathology appreciated. Electronically Signed by Dinesh Mckeon MD 08/23/2018 03:11 P DD: Dinesh Mckeon MD 08/23/18 1507 DT: Sharyn 08/23/18 151 DS: ASHLEY 08/23/18 1511 08/23/18 1511 [facility] NAME: VIKA LAWRENCE DATE OF : 1955 AGE: 63 SEX: F REPORT #: [id number] ROOM: [facility] TECHNOLOGIST: TBOIN DOCTOR: PAO POPE MD Ordered for Date&Time: 08/26/18 cc: [~ rep ct ivnm] Service Date&Time: 08/26/181428 This report is in Signed status. If this report is in a DRAFT status it has not yet been reviewed by the radiologist for accuracy. Thank you for having your radiology procedures performed at [facility] RADIOLOGY REPORT Date&Time printed: [~ rep prt dt last] [~ rep prt tm last] Page 1 of 1 [place] [address] RADIOLOGY REPORT This report is in Signed status. If this report is in a DRAFT status it has not yet been reviewed by the radiologist for accuracy. Thank you for having your radiology procedures performed at [facility] RADIOLOGY REPORT Date&Time printed: [~ rep prt dt last] [~ rep prt tm last] Page 1 of NAME: VIKA LAWRENCE DATE OF : 1955 AGE: 63 SEX: F REPORT #: [id number] ROOM: [place] TECHNOLOGIST: TOBIN DOCTOR: PAO POPE MD Ordered for Date&Time: 08/26/18 cc: [~ rep ct ivnm] Service Date&Time: 08/26/181428 EXAMINATION REQUESTED: Chest, 1 view REASON FOR PATIENT VISIT: MASS OF RIGHT LUNG, PNEUMONIA REASON FOR EXAM/COMMENT: POST OP IN PACU/ EBUS BRONCH Chest, single AP view, 02:27 p.m., post op: Comparison is 08/23/2018. There is no pneumothorax or pleural fluid collection. There is a focal infiltrate in the left lower lobe as an interval change. The right hilus is enlarged with a band of increased density extending into the right upper lobe consistent with atelectasis, unchanged from 08/23/2018. Cardiac size is normal. Mediastinum and skeletal structures otherwise are unremarkable. Impression: New left lower lobe infiltrate. No pneumothorax or pleural fluid collection. Enlarged right hilus with a band of increased density extending into the right upper lobe, unchanged from 08/23/2018. Electronically Signed by Alvaro Rousseau MD 08/26/2018 05:08 P DD: Alvaro Rousseau MD 08/26/18 [id number] DS: WEBDA 08/26/18170708/26/18 170 [~ rep ct labl] PROGNOSIS: [guarded] ACTIVITY: [As tolerated]. DIET: [diabetic diet ] DISCHARGE PLAN: [follow up with pcp and pulm in 1-2 weeks ] ITEMS TO FOLLOWUP ON ON OUTPATIENT: 1. [follow up for biopsy result]. DISCHARGE CONDITION: [Stable]. TIME SPENT ON DISCHARGE: Greater than [15] minutes. Vital Signs/I&Os Vital Signs Date Time Temp Pulse Resp B/P (MAP) Pulse Ox O2 Delivery O2 Flow Rate FiO2 08/27/18 10:00 97.4 100 18 111/58 (75) 94 08/23/18 12:48 Room Air I&O- Last 24 Hours up to 6 AM 08/27/18 06:00 Intake Total 1265 ml Output Total 2050 ml Balance -785 ml Laboratory Data Labs 24H Laboratory Tests 2 08/26/18 14:10: Bedside Glucose (Misc Panel) 117H 08/26/18 16:43: Bedside Glucose (Misc Panel) 200H 08/26/18 20:54: Bedside Glucose (Misc Panel) 342H 08/27/18 05:52: Nucleated Red Blood Cells % (auto) 0.0, Anion Gap 9, Glomerular Filtration Rate > 60.0, Blood Urea Nitrogen 12, Creatinine 0.76, Sodium Level 138, Potassium Level 4.1, Chloride Level 103, Carbon Dioxide Level 26, Calcium Level 8.8, P hosphorus Level 3.3#, Magnesium Level 1.9 08/27/18 11:40: Bedside Glucose (Misc Panel) 414H CBC/BMP Laboratory Tests 08/27/18 05:52 Red Blood Count 4.00, Mean Corpuscular Volume 89.8, Mean Corpuscular Hemoglobin 29.3, Mean Corpuscular Hemoglobin Concent 32.6, Red Cell Distribution Width 13.0, Calcium Level 8.8 FSBS Laboratory Tests Test 08/26/18 14:10 08/26/18 16:43 08/26/18 20:54 08/27/18 11:40 Range/Units Bedside Glucose (Misc Panel) 117 200 342 414 80-115 MG/DL Microbiology Microbiology 08/23/18 Blood Culture - Preliminary, Resulted No Growth after 72 hours. All specime... 08/23/18 Blood Culture - Preliminary, Resulted No Growth after 72 hours. All specime... 08/26/18 Acid Fast Stain - Final, Resulted 08/26/18 Mycobacterial Culture, Resulted Pending 08/26/18 Fungal Smear, Resulted Pending 08/26/18 Fungal Culture, Resulted Pending 08/26/18 Gram Stain - Final, Resulted 08/26/18 Bronchial Aspirate Culture, Resulted Pending 08/24/18 MRSA Screen - Final, Complete 08/24/18 Gram Stain - Final, Complete 08/24/18 Sputum Culture - Final, Complete Discharge Medications Scheduled (Womens 50+ Multi Vitamin) 1 Tab Tab, 1 TAB PO DAILY, (Reported) Ascorbic Acid (Vitamin C) 500 Mg Tab, 500 MG PO BID, (Reported) Aspirin (Aspirin EC) 81 Mg Tab, 81 MG PO DAILY, (Reported) Carvedilol (Carvedilol) 3.125 Mg Tab, 3.125 MG PO BID, (Reported) Cholecalciferol (Vitamin D3) (Vitamin D3) 1,000 Unit Tab, 1,000 UNIT PO DAILY, (Reported) Dicyclomine HCl (Dicyclomine HCl) 20 Mg Tab, 20 MG PO WM, (Reported) Escitalopram Oxalate (Escitalopram Oxalate) 20 Mg Tab, 20 MG PO DAILY, (Reported) Gabapentin (Gabapentin) 300 Mg Cap, 300 MG PO TID, (Reported) Insulin Degludec (Tresiba Flextouch U-100) 100 Unit/Ml Inj, 10 UNIT SC DAILY, (Reported) Insulin Human Lispro (Novolog) 100 U/Ml Inj, 1 DOSE SC WM, (Reported) PER SLIDING SCALE Levofloxacin (Levaquin) 750 Mg Tablet, 750 MG PO DAILY Lisinopril (Lisinopril) 2.5 Mg Tab, 2.5 MG PO QHS, (Reported) Montelukast Sodium (Montelukast Sodium) 10 Mg Tab, 10 MG PO QHS, (Reported) Pantoprazole Sodium (Pantoprazole Sodium) 40 Mg Tab, 40 MG PO QPM, (Reported) Simvastatin (Simvastatin) 40 Mg Tab, 40 MG PO QHS, (Reported) Vitamin E (Vitamin E) 400 Unit Cap, 400 UNIT PO DAILY, (Reported) Scheduled PRN Ondansetron HCl (Zofran) 4 Mg Tab, 4 MG PO TID PRN for NAUSEA OR VOMITING, (Reported) Allergies Coded Allergies: Penicillins (Verified Allergy, Unknown, 08/23/18) Sulfa (Sulfonamide Antibiotics) (Verified Allergy, Unknown, 08/23/18) GODWIN GODFREY MD Aug 27, 2018 12:50
--- NOTE | 2018-08-27 13:25 | ROOR ---
Patient Name: Dilia Villarreal Procedure Date: 08/26/2018 12:26 PM Date of : 1955 Admit Type: Outpatient Age: 63 Note Status: Finalized Attending MD: Carla Patterson MD Procedure: Bronchoscopy Indications: Right upper lobe mass, Hilar/mediastinal abnormality Providers: Carla Patterson MD (Doctor) Referring MD: Margarita Barnett Md (Referring MD) Requesting Physician: Medicines: General Anesthesia, Cetacaine topical Complications: No immediate complications. Estimated blood loss: Minimal Procedure: Pre-Anesthesia Assessment: - Prior to the procedure, a History and Physical was performed, and patient medications and allergies were reviewed. The patient's tolerance of previous anesthesia was also reviewed. The risks and benefits of the procedure and the sedation options and risks were discussed with the patient. All questions were answered, and informed consent was obtained. Prior Anticoagulants: The patient has taken no previous anticoagulant or antiplatelet agents. ASA Grade Assessment: III - A patient with severe systemic disease. After reviewing the risks and benefits, the patient was deemed in satisfactory condition to undergo the procedure. The Bronchoscope was introduced through the mouth, via the endotracheal tube (the patient was intubated for the procedure) and advanced to the tracheobronchial tree of both lungs. The procedure was accomplished without difficulty. The patient tolerated the procedure well. Findings: Respiratory tract: The trachea is of normal caliber. The enmanuel is sharp. The entire tracheobronchial tree was examined to at least the first subsegmental level. There were scattered thick white secretions noted in left bronchi, the SUSANNE had trifurcation of segmental bronchi, normal variant. In the right mainstem there was a friable endobronchial lesion. In the right upper lobe there was a friable partially obstructing endobronchial lesion in anterior segment of RUL with mucosal edema as well in RUL oriface. Brushings of a lesion were obtained in the right upper lobe with a cytology brush and sent for routine cytology. Washings were obtained in the right upper lobe and sent for cell count, bacterial culture, viral smears & culture, and fungal & AFB analysis and cytology. The return was blood-tinged and cellular. Endobronchial biopsies of a lesion were performed in the right mainstem bronchus and in the right upper lobe using a forceps and sent for routine cytology. An endobronchial ultrasound endoscope was utilized in order to assist with fine needle aspiration in the right paratracheal area, in the subcarinal area and in the left hilum. Transbronchial needle aspirations of lymph nodes were performed in the right paratracheal area, in the subcarinal area and in the left hilum using an Olympus EBUS-TBNA 21 gauge needle and sent for routine cytology. The procedure was guided by ultrasound. Impression: - Right upper lobe mass - Hilar/mediastinal abnormality - Brushings were obtained. - Washings were obtained. - An endobronchial biopsy was performed. - Endobronchial ultrasound was performed. - Fine needle aspirations were performed of lymph nodes Recommendation: - Await biopsy, brushing, culture, cytology and washing results. Attending Participation: I personally performed the entire procedure. Carla Patterson MD 08/27/2018 1:24:33 PM Number of Addenda: 0 Note Initiated On: 08/26/2018 12:26 PM
[2018-08-27] MEDS ORDERED: VANCOMYCIN HCL 750 MG, VIAL MATE ADAPTER 1 EACH in D5W 250 ML IV SCH (21:00)
== END 2018-08-27 13:53 | disposition home or self-care (01) | DRG 952 ==
LOC: M ED 12:48 → M ED INP 16:35 → M MSPAV 18:42
PROVIDERS: ADMIT Internal Medicine; ATTEND Internal Medicine
PROC: 0BB38ZX Excision of Right Main Bronchus, Via Natural or Artificial Opening Endoscopic, Diagnostic (ICD-10-PCS; 2018-08-26)
PROC: 0BBC8ZX Excision of Right Upper Lung Lobe, Via Natural or Artificial Opening Endoscopic, Diagnostic (ICD-10-PCS; principal; 2018-08-26 11:35)
PROC: 07B74ZX Excision of Thorax Lymphatic, Percutaneous Endoscopic Approach, Diagnostic (ICD-10-PCS; 2018-08-26 11:35)
DX: C34.11 Malignant neoplasm of upper lobe, right bronchus or lung (principal); J18.9 Pneumonia, unspecified organism; R64 Cachexia; J44.0 Chronic obstructive pulmonary disease with (acute) lower respiratory infection; C77.1 Secondary and unspecified malignant neoplasm of intrathoracic lymph nodes; E11.9 Type 2 diabetes mellitus without complications; I10 Essential (primary) hypertension; J45.909 Unspecified asthma, uncomplicated; R11.2 Nausea with vomiting, unspecified; Z79.82 Long term (current) use of aspirin; Z79.4 Long term (current) use of insulin; Z79.899 Other long term (current) drug therapy; Z88.0 Allergy status to penicillin; Z88.2 Allergy status to sulfonamides; Z87.891 Personal history of nicotine dependence; Z98.41 Cataract extraction status, right eye; Z98.42 Cataract extraction status, left eye

== ENCOUNTER → 2018-09-18 | Outpatient (CLI) | payer BC, MEDICARE ==
[~2018-09-18] MED LIST: ASPI81TA26 PO; CARV3.12 PO; DEXA2TA PO; DICY20TA PO; ESCI20TA PO; FURO20TA2 PO; GABA-843 PO; INSUH10VL SC; LEVA750T7 PO; LISI-1046 PO; MONT10TA2 PO; MULT1CAP3 PO; PANT40TA3 PO; PROHANCE 279.3MG/ML 5ML VIAL (A9576) As Ordered ONE; SIMV40TA2 PO; SPIR-10 PO; TRES1INJ2 SC; VITA100066 PO; VITA400C67 PO; VITA500T PO; WOMETAB2 PO; ZOFR4TAB16 PO
--- NOTE | 2018-09-18 10:34 | REP ---
MR BRAIN WITHOUT AND WITH CONTRAST: HISTORY: Lung carcinoma. CONTRAST: ProHance 7 mL. There are small enhancing metastatic nodules measuring 7 and 3 mm in the left thalamus. A metastatic nodules 6 mm in with is present in the posterior left temporal lobe. A metastatic nodule 4 mm in width is present in the right middle cerebellar peduncle adjacent to the fourth ventricle. A metastatic nodule 7 mm in width is present in the medial left cerebellum adjacent to the fourth ventricle. There is no mass effect or surrounding edema. Areas of increased signal intensity on T2-weighted images are present in the periventricular and subcortical white matter and acrolina. This represents small vessel ischemic disease. There is no intraparenchymal hemorrhage or infarct. The ventricular system and cortical sulci are dilated consistent with minimal volume loss. There is no extracerebral collection. IMPRESSION: There are small enhancing metastatic lesions in the left thalamus, left temporal lobe, and bilateral cerebellum. Electronically Signed by Meir Epps MD 09/18/2018 10:48 A
== END ==
LOC: M RAD 08:40
PROVIDERS: ATTEND Internal Medicine Medical Oncology
DX: C79.31 Secondary malignant neoplasm of brain (principal); C34.91 Malignant neoplasm of unspecified part of right bronchus or lung
CPT/HCPCS: 70553; A9576

== ENCOUNTER → 2018-09-19 | Outpatient (CLI) | payer BC, MEDICARE ==
[~2018-09-19] MED LIST changes: -PROHANCE 279.3MG/ML 5ML VIAL (A9576) As Ordered ONE
--- NOTE | 2018-09-20 09:01 | RADONC ---
RADIATION ONCOLOGY CONSULTATION NOTE DATE: 09/19/2018 CHART NUMBER: [id number] DIAGNOSIS: Adenocarcinoma of the right upper lobe. STAGE IV B, [id number]. ECOG PERFORMANCE STATUS: 0 CONSULTATION NOTE: Ms. Villarreal is a very pleasant 63-year-old white female who is presenting to us today with what appears to be a stage IV poorly differentiated adenocarcinoma of the right lung for consideration of palliative radiation therapy for brain metastasis as well as consolidative radiation therapy to her mediastinum and primary site. HISTORY OF PRESENT ILLNESS: The patient was in her usual state of health but has a long history of brittle type 1 diabetes. Many years ago, the patient did smoke cigarettes but this was for a short duration. She has had cervical carcinoma in the past which was treated with surgery, DORI-BSO. More recently, she presented to the emergency room was shortness of breath, nausea, and vomiting. Chest x-ray was done on 08/23/2018 which showed fullness in the right hilar area as well as atelectasis of the right upper lobe. A CT scan done the same day showed some spiculation along the superior aspect of the minor fissure in the right upper lobe which was retracted upwards. This was thought to represent a neoplastic process. There was a spiculated area measuring 2.6 cm in greatest diameter. Central to this, there was a band-like area of opacity with some adjacent consolidation. Precarinal adenopathy and subcarinal adenopathy were noted. There was narrowing of the bronchus intermedius and there was obstruction or narrowing of the segmental upper lobe bronchi centrally. This was also suggestive of malignancy. The superior vena cava was patent although narrowed at this level just above the right atrium. In addition, there was an adrenal mass suspicious for metastatic disease measuring 2.7 cm x 2.1 cm. On 08/26/2018, the patient underwent a biopsy of her right mainstem bronchus as well as the right upper lobe, the subcarinal lymph nodes and the paratracheal lymph region. These were positive for poorly differentiated adenocarcinoma with extensive necrosis. An MRI of the brain was done on 09/18/2018 and revealed multiple small metastatic lesions throughout the brain. She is now presenting for discussion of radiation for her brain metastasis as well as radiation to her mediastinum and primary site in an attempt to increase the likelihood of achieving local control. PAST MEDICAL HISTORY: The patient's past medical history is positive for arthritis and cardiac problems. In addition, she has a diagnosis of COPD and type 1 diabetes as well as hypertension and asthma. She had a DORI-BSO at the age of 24 as well as a tonsillectomy and bilateral cataract surgery. ALLERGIES: The patient is allergic to SULFA DRUGS and PENICILLIN. SOCIAL HISTORY: The patient smoked cigarettes for 5-7 years or so. She quit at the age of 24. She does not abuse alcohol. FAMILY HISTORY: The patient's family history is positive for a mother with colon cancer and a father with brain tumor and a sister with lung cancer. REVIEW OF SYSTEMS: The patient's review of systems is positive for her cachexia. She reports occasional faintness and weakness as well as anxiety. She has occasional headaches. Her review of systems is otherwise noncontributory. She denies nausea, vomiting, fevers, chills, night sweats, diplopia, headaches, anxiety or depression, anorexia, weight loss, visual disturbances, chest pain, urinary or bowel difficulties, bone pain, or neurological problems. PHYSICAL EXAMINATION: The patient is a cachectic 89.6 pound white female in no acute distress. HEENT exam is normocephalic, atraumatic. Extraocular movements are intact. There is no palpable cervical, supraclavicular, infraclavicular, axillary, or inguinal lymphadenopathy present. Lungs are clear to auscultation and percussion. Heart has a regular rate and rhythm. Abdomen is benign with no hepatosplenomegaly, masses, or tenderness. Skeletal examination reveals no tenderness to pressure or percussion of the bony skeleton. Extremities reveal no clubbing, cyanosis, or edema. Neurologic exam is grossly intact, as is the remainder of the physical examination. ASSESSMENT: Clearly the patient is a candidate for external beam radiation therapy for her brain metastasis and I have so informed her. I have discussed with the patient in detail the potential benefits as well as possible acute and chronic sequelae of external beam radiation therapy. We discussed logistics of treatment planning, simulation, subsequent fractionated daily radiation treatments. I have scheduled the patient for simulation today so that radiation can begin without delay and more importantly keep us from delaying her other treatment areas which are worrisome and can cause future problems. The patient had been scheduled for a PET scan but this was cancelled because of her blood sugar levels. It is now scheduled for next week. I have placed the patient on our list for discussion at our multidisciplinary tumor conference on Sunday and further recommendations of course will be made following that conference. I did speak with the patient in detail about the effects of Decadron on her blood sugars. I am concerned with this and I have let her know that she may wish to start radiation without initiating the Decadron I have prescribed her. I said we could follow her closely and she can always begin the low dose of Decadron I have given if she does develop a headache. Indeed I prescribed only 2 mg p.o. b.i.d. I let her know that I would like her to either stay off it if possible and if not to stay low dose so that we can taper it quickly. I let her know that steroids can affect immunotherapy as well and I do not wish our treatments to interfere at all with her overall systemic therapy. I have discussed this with her medical oncologist, Dr. Quarles in whom I have great confidence. I am scheduling the patient as well for CT simulation for her mediastinal disease which can be done next week. This way once we have the results of the PET scan, we can undertake treatment planning and we will be ready to initiate treatment without delay once we have completed her brain therapy. Thank you for allowing us to participate in the care of this very pleasant woman. If I could be of any further assistance or provide you with any information, please feel free to contact me at anytime. As always, warm regards: cc: Claire Beth, DO Jana Quarles MD
== END ==
LOC: M ONCR 08:49
PROVIDERS: ATTEND Radiology Radiation Oncology
DX: C34.91 Malignant neoplasm of unspecified part of right bronchus or lung (principal); E10.9 Type 1 diabetes mellitus without complications; Z85.41 Personal history of malignant neoplasm of cervix uteri; Z79.899 Other long term (current) drug therapy

== ENCOUNTER → 2018-10-01 | Outpatient (CLI) | payer MEDICARE, BC | LOC: M PLARAD 12:28 | PROVIDERS: ATTEND Internal Medicine Pulmonary Disease | DX: C34.11 Malignant neoplasm of upper lobe, right bronchus or lung (principal) ==

== ENCOUNTER 2018-10-07 12:52 | Outpatient (RCR) | payer BC, MEDICARE ==
--- NOTE | 2018-09-20 08:28 | RADONC ---
RADIATION ONCOLOGY SIMULATION NOTE DATE: 09/19/2018 CHART NUMBER: [id number] Ms. Villarreal was taken to the CT scan for CT simulation of her brain field. CT was accomplished without difficulty or discomfort. Radiation treatment planning is underway and radiation treatments will begin on Sunday. An immobilization device was created and will be used throughout the course of treatment. It included a mask. It was created without difficulty or discomfort. I was physically present throughout the course of CT simulation. The patient has been given a prescription for Decadron but has been asked to withhold starting it unless she develops a headache considering her difficulty with maintenance of blood sugars. I have discussed this case with her medical oncologist, Dr. Quarles and steroids can also interfere with immunotherapy. We therefore will keep the dose as low as possible.
--- NOTE | 2018-09-21 06:41 | MEDONC ---
MEDICAL ONCOLOGY ADDENDUM DATE OF SERVICE: 09/12/2018 ADDENDUM: Molecular testing with OmniSeq reveals the following clinically significant mutations: PD-L1 90%, high BRAF (V600E), MSI stable, TMB low, CD8 (RNA-SEQ) 48%. "Molecular Summary - This BRAF (V600E0) mutant micro satellite stable lung cancer is considered very immunogenic with low tumor mutational burden and is weakly to moderately inflamed with a moderately low number of CD8 positive T cells in an infiltrating pattern and strong expression of PD-L1 by IHC (TPS 90%) RNA-SEQ analysis shows significant checkpoint blockade and strong myelosuppression signals as well as metabolic immune escape via high expression of CSF1R and ID01 respectively. Additionally the checkpoint blockade in this tumor is accompanied by costimulatory T-cell signal via high expression of CD40, GITR". The OmniSeq report also indicates likelihood of response to dabrafenib/trametinib combination, PD-L1 targeting agents, chemotherapy. Electronically Signed by Jana Quarles MD 09/23/2018 05:05 P DD: Jana Quarles MD 09/20/2018 08:59 A DT: terrance 09/21/2018 06:29 A CC:
--- NOTE | 2018-09-23 14:17 | RADONC ---
RADIATION ONCOLOGY PROGRESS NOTE DATE: 09/23/2018 CHART NUMBER: [id number] Ms. Villarreal had been scheduled to begin her whole brain radiation today. Unfortunately, she arrived and due to machine breakdown radiation was not able to be started today. We therefore are planning on beginning her radiation tomorrow. When I saw her today the patient's review of systems was unchanged. She generally has no complaints. The physical exam remains unchanged as well.
--- NOTE | 2018-09-30 16:19 | RADONC ---
RADIATION ONCOLOGY PROGRESS NOTE DATE: 09/30/2018 CHART NUMBER: [id number] PROGRESS NOTE: Mrs. Villarreal with a diagnosis of adenocarcinoma of the right upper lobe with brain metastasis is currently receiving whole brain radiotherapy. Her dose to date is 1500 cGy of a proposed 3000 cGy and all treatments are going relatively well. REVIEW OF SYSTEMS: She specifically denies any headaches. In fact, the headaches have improved significantly. Although, she still occasionally has vomiting and nausea especially in the morning time. This has been an ongoing issue for her. She denies any skin irritation but does note fatigue. Coughing, hemoptysis, and dyspnea are denied. The patient is going for a PET scan tomorrow. EXAMINATION FINDINGS: Skin within the irradiated volume shows no evidence of epilation and certainly no desquamation or erythema. There is no palpable peripheral lymphadenopathy. The remainder of the physical examination is unchanged. IMPRESSION: Tolerating therapy well. PLAN: Treatments to continue. MTDD
--- NOTE | 2018-10-07 14:20 | RADONC ---
RADIATION ONCOLOGY SIMULATION NOTE DATE: 10/07/2018 CHART #: [id number] Ms. Villarreal was taken to the CT scan for CT simulation of her lung field. CT was accomplished without difficulty or discomfort. Radiation treatment planning is underway and radiation treatments will begin subsequently. An immobilization device was created and will be used throughout the course of treatment. It was created without difficulty or discomfort. I was physically present throughout the course of CT simulation.
--- NOTE | 2018-10-07 14:23 | RADONC ---
RADIATION ONCOLOGY PROGRESS NOTE DATE: 10/07/2018 CHART #: [id number] Ms. Villarreal has completed whole brain radiation for a dose of 3000 cGy delivered in 10 fractions of 300 cGy each over 13 elapsed days from 09/24/2018 through 10/07/2018. The patient's whole brain was treated on a linear accelerator utilizing a 6 MV photon beam via parallel opposed lateral vickers. Now that she has completed the whole brain treatment, we will undertake treatment planning for her lung vickers. A PET scan has not yet been accomplished secondary to instability of her blood sugars. We will continue an attempt to get that.
[2018-10-19] MEDS ORDERED: CAL-TAB4 PO (23:09)
[2018-10-19] MEDS ORDERED: TRES1INJ2 SC (23:09)
== END 2018-10-18 ==
LOC: M ONCR 12:52
PROVIDERS: ATTEND Radiology Radiation Oncology
DX: C34.91 Malignant neoplasm of unspecified part of right bronchus or lung (principal)

== ENCOUNTER → 2018-10-09 | Outpatient (CLI) | payer BC, MEDICARE ==
[~2018-10-09] MED LIST changes: +CAL-TAB4 PO; +REGL10TA6 PO
--- NOTE | 2018-10-10 14:19 | REP ---
REASON: Lung carcinoma. There are no prior PET/CTs for comparison. Previous CT scan of the chest 08/23/2018 was reviewed. After the intravenous administration of 8.83 millicuries of FDG 18 triplane whole body PET/CT was performed from the skull base of the mid thigh. More recent CT scan of the chest 09/[address] was [address] reviewed. Prior CT abdomen and pelvis 08/23/2018 also reviewed. There is hypermetabolic activity seen in the left adrenal gland with SUV values of 6.0. There is hypermetabolism also seen in the right adrenal gland with SUV value of 3.17. Standard CT scanning through the right adrenal gland shows no abnormal nodularity or enlargement, however. There is a large right hilar mass which is hypermetabolic having SUV values in the range of 5.3-5.9. There is a right paratracheal hypermetabolic focus within a nonenlarged lymph node. There is a large right upper lobe mass seen on both prior CTs, smaller on the latest prior and still having hypermetabolic activity in the range of 3.4 and 3.5 SUV values. There is a band-like area of hypermetabolism also seen in the right upper lobe extending from the aforementioned mass to the anterior junction line. No other areas of abnormal hypermetabolic activity are seen in the neck, chest, abdomen, or pelvis. IMPRESSION: 1. Hypermetabolic right upper lobe mass with extension to the anterior junction line as described above consistent with the patient's known malignancy. Whether or not the band-like extension is secondary to additional malignancy or postobstructive pneumonitis cannot be distinguished by this exam. Followup is recommended. There is marked hypermetabolic activity seen in the right hilum. There is a hypermetabolic nonenlarged right paratracheal lymph node. There is a left adrenal gland mass which is hypermetabolic as described above and there is low level hypermetabolism seen in a nonenlarged right adrenal gland. This too is suspicious for early metastatic disease. 2. Other findings as described above. Electronically Signed by Jamaal Recinos DO 10/10/2018 03:27 P
== END ==
LOC: M PLARAD 09:26
PROVIDERS: ATTEND Internal Medicine Pulmonary Disease
DX: C34.90 Malignant neoplasm of unspecified part of unspecified bronchus or lung (principal)
CPT/HCPCS: 78815; A9552

== ENCOUNTER 2018-10-15 11:21 | Observation (INO) | payer MEDICARE, BC ==
[~2018-10-15] VITALS: Ht 160 cm; Wt 63.4 kg
[~2018-10-15 11:21] MED LIST changes: -CAL-TAB4 PO; -REGL10TA6 PO
[2018-10-15] MEDS: NS 1,000 ML IV SCH ×2 (12:07→23:55)
[2018-10-15] MEDS ORDERED: NS 1,000 ML IV ONE (12:30)
[2018-10-15] MEDS ORDERED: ONDANSETRON 4MG/2ML VIAL (J2405) IV ONE (12:30)
[2018-10-15] MEDS: HYDROMORPHONE HCL 0.5 MG/ 0.5 ML SYRINGE (J1170 PER 1) IV PRN ×2 (12:46→14:38)
[2018-10-15 13:01] LABS: BASO # 0.1 10^3/uL (0.0-0.2); EOS # 0.1 10^3/uL (0.0-0.50); EOS % 0.5 % (0.0-3.0); HEMATOCRIT 43.1 % (36.0-47.0); HEMOGLOBIN 14.4 g/dl (12.0-15.5); LYMPH # 1.2 10^3/uL (1.5-4.5); LYMPH % 10.5 % (24.0-44.0); MEAN CORPUSCULAR HEMOGLOBIN 30.6 pg (27.0-33.0); MEAN CORPUSCULAR HGB CONC 33.4 g/dl (32.0-36.5); MEAN CORPUSCULAR VOLUME 91.7 fl (80.0-96.0); MONO # 0.5 10^3/uL (0.0-0.8); MONO % 4.3 % (0.0-5.0); NEUTROPHILS # 9.8 10^3/uL (1.8-7.7); PLATELET COUNT, AUTOMATED 321 10^3/uL (150-450); WHITE BLOOD COUNT 11.8 10^3/uL (4.0-10.0)
[2018-10-15 13:26] LABS: ALBUMIN 3.3 GM/DL (3.2-5.2); BILIRUBIN,DIRECT 0.1 MG/DL (0.0-0.2); BILIRUBIN,TOTAL 0.5 MG/DL (0.2-1.0); TOTAL PROTEIN 7.8 GM/DL (6.4-8.2)
--- NOTE | 2018-10-15 13:50 | REP ---
ACUTE ABDOMINAL SERIES: Three views. HISTORY: Abdomen pain. COMPARISON STUDY: August 26, 2018. FINDINGS: The lungs are hyperinflated overall. There is a somewhat elongate spiculated lesion in the right upper lobe again noted with volume loss in the right upper lobe elevating the right hilus and elevating the minor fissure. This is actually less prominent than on the August 26, 2018 study. The infiltrate noted in the left base on the August chest x-ray has resolved. There is no evidence of free subdiaphragmatic air. No new infiltrate is seen. Heart is not enlarged. Supine and erect views of the abdomen show numerous of scattered surgical clips throughout the abdomen and pelvis. The bowel gas pattern is normal. There is no significant air fluid level. No evidence of free intraperitoneal air. IMPRESSION: Scattered fairly numerous surgical clips in the abdomen and pelvis. Normal bowel gas pattern. Somewhat spiculated density in the right upper lobe with volume loss in the right upper lobe as previously noted. No evidence of obstruction or free intraperitoneal air in the abdomen. Electronically Signed by Tee Goodman MD 10/15/2018 04:14 P
[2018-10-15 14:00] LABS: BLOOD UREA NITROGEN 24 MG/DL (7-18); CALCIUM LEVEL 9.2 MG/DL (8.8-10.2); CARBON DIOXIDE LEVEL 21 MEQ/L (21-32); CHLORIDE LEVEL 98 MEQ/L (98-107); CPK CREATINE PHOSPHOKINASE 47 U/L (26-192); CREATININE FOR GFR 0.76 MG/DL (0.55-1.30); GLOMERULAR FILTRATION RATE > 60.0 (>45); GLUCOSE, FASTING 278 MG/DL (70-100); MB/CK RELATIVE INDEX 2.13 (< OR =4); POTASSIUM SERUM 4.8 MEQ/L (3.5-5.1); SODIUM LEVEL 133 MEQ/L (136-145); TROPONIN I < 0.02 NG/ML (< 0.10)
[2018-10-15] MEDS ORDERED: ISOVUE-370 76% 100ML VIAL (Q9967) As Ordered ONE (14:03)
--- NOTE | 2018-10-15 14:37 | REP ---
Clinical: Headache and vomiting with history of metastatic disease. Comparison: MRI dated 09/18/2018 . Findings: Age-related atrophy and microvascular ischemic changes are appreciated. Very subtle area of low density is appreciated in the high right parietal lobe (images 20-22) and are nonspecific. No significant edema or mass/mass effect identified. The ventricles and sulci are symmetric. Steve-white differentiation is maintained. There is no evidence for acute intracranial hemorrhage, mass/mass effect, pathology or infarction. No extra-axial fluid collection. Calvarium is intact. Paranasal sinuses and mastoid air cells are clear. Impression: Age related atrophy and microvascular ischemic changes. Focal area of low density in the high right parietal white matter which is nonspecific. No acute intracranial hemorrhage, infarction, or mass/mass effect. Electronically Signed by Dinesh Mckeon MD 10/15/2018 02:29 P
[2018-10-15] MEDS ORDERED: PROMETHAZINE INJ 25 MG/ML VIAL (J2550) IV ONE (14:45)
--- NOTE | 2018-10-15 14:53 | REP ---
Clinical: Acute abdominal pain. Technique: Axial contrast enhanced images from the lung bases to the pubic symphysis using 100 ml Isovue 370 intravenous contrast material with coronal and sagittal re-formations. Comparison: 08/23/2018. Findings: Lung bases are clear. Visualized heart and pericardium normal. Liver, spleen, atrophic pancreas, gallbladder, right adrenal gland and bilateral kidneys are normal. Left adrenal mass measures 2.2 cm and is concerning for metastatic focus. The enteric system is without obstruction or acute inflammatory process. Pelvis demonstrates normal bladder and evidence for prior hysterectomy. No ascites. No free air. No obvious adenopathy. Abdominal aorta without aneurysm or dissection. Musculoskeletal structures without focal osseous abnormality. Impression: 1. 2.2 cm partially enhancing left adrenal lesion concerning for metastatic disease. 2. No further acute abdominopelvic pathology appreciated. Electronically Signed by Dinesh Mckeon MD 10/15/2018 02:45 P
[2018-10-15] MEDS ORDERED: ACETAMINOPHEN TAB 650MG DOSE (2X325MG) PO PRN (17:30)
--- NOTE | 2018-10-15 17:42 | HPEPDOC ---
[facility] Medical History & Physical Date of Admission October 15, 2018 Date of Service: October 15, 2018 History and Physical CHIEF COMPLAINT: NAUSEA HISTORY OF PRESENT ILLNESS: patient is a 63-year-old female with medical history of lung cancer with mets on radiation therapy, IDDM, and hx Cervical cancer presented to the ER with c omplaints of nausea for the past 24-36 hours and have not been able to eat much. Recently diagnosed with lung cancer and started on treatment recently so far only with radiation. She reports no other complaints apart from nausea and vomiting. She has not been able to keep food down for more than a day and has been cautious with her insulin usage as she is very sensitive to even a small dose of short acting insulin. PAST MEDICAL HISTORY: Refer to HPI PAST SURGICAL HISTORY: Hysterectomy SOCIAL HISTORY: Denies tobacco, alcohol or illicit drug use. FAMILY HISTORY: Mother had colon cancer Father had brain cancer ALLERGIES: Please see below. REVIEW OF SYSTEMS: 10 point review of system negative except as stated in HPI HOME MEDICATIONS: Please see below. PHYSICAL EXAMINATION: General: No acute distress, Alert. Moderate amount of hair loss. Eyes: Normal sclera, EOMI, SHAHEED HENT: Atraumatic, neck supple, moist mucous membranes Cardiovascular: Normal rate, normal rhythm. No murmurs appreciated. Pulmonary: Clear to auscultation b/l, no wheezing GI: Soft, nontender, nondistended Skin: Warm and dry Neuro: CN grossly intact. No focal deficits. Strengths equal b/l. Psych: oriented x 3 LABORATORY DATA: See below. MICROBIOLOGY: Please see below. ASSESSMENT AND PLAN: 1. Nausea/Vomiting - Likely 2/2 recent initiation of Radiation therapy to brain. - Has been afebrile. Low suspicion for infectious etiology although possible. - f/u Blood cultures. - Zofran for nausea. - Full liquid diet for now. 2. IDDM - Normally on Tresiba 10 units at night and humalog ISS. - Very sensitive to short acting insulin. Only takes 1 unit for 100 increase in BS. Most she ever took was 4 units. - Please be very careful and do not give too much. Rather she runs high. - Will only give 5 units of levemir tonight given that she is not eating very much, only on clear liquid diet. 3. L. adrenal lesion - Concern for possible metastatic disease. - Can follow up with Onc as outpatient. 4. Lung cancer - Undergoing treatment. follow with onc. 5. COPD - Nebs PRN. - Not in exacerbation. DVT ppx: HSQ and SCD Code status: Full code Vital Signs Vital Signs Date Time Temp Pulse Resp B/P (MAP) Pulse Ox O2 Delivery O2 Flow Rate FiO2 10/15/18 16:06 75 100 10/15/18 16:04 145/75 (98) 10/15/18 14:38 20 10/15/18 11:21 97.2 Room Air Laboratory Data Labs 24H Laboratory Tests 2 10/15/18 12:49: Immature Granulocyte % (Auto) 0.7, White Blood Count 11.8H, Red Blood Count 4.70, Hemoglobin 14.4, Hematocrit 43.1, Mean Corpuscular Volume 91.7, Mean Corpuscular Hemoglobin 30.6, Mean Corpuscular Hemoglobin Concent 33.4, Red Cell Distribution Width 14.0, Platelet Count 321, Neutrophils (%) (Auto) 83.0H, Lymphocytes (%) (Auto) 10.5L, Monocytes (%) (Auto) 4.3, Eosinophils (%) (Auto) 0.5, Basophils (%) (Auto) 1.0, Neutrophils # (Auto) 9.8H, Lymphocytes # (Auto) 1.2L, Monocytes # (Auto) 0.5, Eosinophils # (Auto) 0.1, Basophils # (Auto) 0.1, Nucleated Red Blood Cells % (auto) 0.0, Anion Gap 14, Glomerular Filtration Rate > 60.0, Blood Urea Nitrogen 24H, Creatinine 0.76, Sodium Level 133L, Potassium Level 4.8, Chloride Level 98, Carbon Dioxide Level 21, Calcium Level 9.2, Total Creatine Kinase 47, Aspartate Amino Transf (AST/SGOT) 22, Alanine Aminotransfera se (ALT/SGPT) 36, Alkaline Phosphatase 149H, Total Bilirubin 0.5, Direct Bilirubin 0.1, Creatine Kinase MB 1.0, Creatine Kinase MB Relative Index 2.13, Troponin I < 0.02, Total Protein 7.8, Albumin 3.3, Albumin/Globulin Ratio 0.73L, Lipase 66L CBC/BMP Laboratory Tests 10/15/18 12:49 Red Blood Count 4.70, Mean Corpuscular Volume 91.7, Mean Corpuscular Hemoglobin 30.6, Mean Corpuscular Hemoglobin Concent 33.4, Red Cell Distribution Width 14.0, Neutrophils (%) (Auto) 83.0 H, Lymphocytes (%) (Auto) 10.5 L, Monocytes (%) (Auto) 4.3, Eosinophils (%) (Auto) 0.5, Basophils (%) (Auto) 1.0, Neutrophils # (Auto) 9.8 H, Lymphocytes # (Auto) 1.2 L, Monocytes # (Auto) 0.5, Eosinophils # (Auto) 0.1, Basophils # (Auto) 0.1, Calcium Level 9.2, Total Creatine Kinase 47 Microbiology Microbiology 10/15/18 Blood Culture, Received Pending 10/15/18 Blood Culture, Received Pending Home Medications Scheduled Ascorbic Acid (Vitamin C) 500 Mg Tab, 500 MG PO BID Aspirin (Aspirin EC) 81 Mg Tab, 81 MG PO DAILY Carvedilol (Carvedilol) 3.125 Mg Tab, 3.125 MG PO BID Dicyclomine HCl (Dicyclomine HCl) 20 Mg Tab, 20 MG PO WM Escitalopram Oxalate (Escitalopram Oxalate) 20 Mg Tab, 20 MG PO DAILY Furosemide (Furosemide) 20 Mg Tablet, 20 MG PO DAILY Gabapentin (Gabapentin) 300 Mg Cap, 300 MG PO TID Insulin Degludec (Tresiba Flextouch U-100) 100 Unit/Ml Inj, 10 UNIT SC DAILY Insulin Human Lispro (Novolog) 100 U/Ml Inj, 1 DOSE SC WM PER SLIDING SCALE Lisinopril (Lisinopril) 2.5 Mg Tab, 2.5 MG PO QHS Montelukast Sodium (Montelukast Sodium) 10 Mg Tab, 10 MG PO QHS Multivit-Min/Folic Acid/Vit K1 (Multi For Her 50 Plus Softgel) 1 Each Capsule, 1 EACH PO DAILY Pantoprazole Sodium (Pantoprazole Sodium) 40 Mg Tab, 40 MG PO QPM Simvastatin (Simvastatin) 40 Mg Tab, 40 MG PO QHS Spironolactone (Spironolactone) 25 Mg Tablet, 25 MG PO DAILY Vitamin E (Vitamin E) 400 Unit Cap, 400 UNIT PO DAILY Scheduled PRN Ondansetron HCl (Zofran) 4 Mg Tab, 4 MG PO TID PRN for NAUSEA OR VOMITING Allergies Coded Allergies: Penicillins (Verified Allergy, Unknown, 08/23/18) Sulfa (Sulfonamide Antibiotics) (Verified Allergy, Unknown, 08/23/18) A-FIB/CHADSVASC A-FIB History Current/History of A-Fib/PAF?: No RICHIE BAKER MD October 15, 2018 17:42
[2018-10-15] MEDS ORDERED: GLUCOSE 4 GM CHEW TABLET PO PRN (17:45)
[2018-10-15] MEDS ORDERED: DEXTROSE 50% 50 ML SYRINGE IV PRN (17:45)
[2018-10-15] MEDS ORDERED: GLUCAGON FOR INJ 1 MG VIAL (J1610) SC PRN (17:45)
[2018-10-15 21:00] VITALS: BP 146/72
[2018-10-15] MEDS ORDERED: LEVEMIR (INSULIN DETEMIR) 1 UNITS/0.01ML SC SCH (21:00)
--- NOTE | 2018-10-15 21:01 | ECGEPIP ---
[facility] - ED Test Date: 2018-10-15 Pat Name: VIKA LAWRENCE Department: Room: - Gender: Female [employer]aging [employer] Operator: JSharmila : [id number] Requested By: Kami Romo Order Number: [id number] Reading MD: Kami Romo Measurements Intervals [place] Rate: 84 P: 86 OH: 153 QRS: 95 QRSD: 74 T: 89 QT: 368 QTc: 436 Interpretive Statements SINUS RHYTHM POSSIBLE RIGHT ATRIAL ENLARGEMENT BORDERLINE RIGHT AXIS DEVIATION PRWP INCREASED RATE 08/23/18 Electronically Signed on 10-15-2018 21:01:23 EDT by Kami Romo
[2018-10-15] MEDS ORDERED: HumaLOG INSULIN (NovoLOG) PER UNIT SC ONE (22:00)
[2018-10-15] MEDS: HumaLOG INSULIN (NovoLOG) PER UNIT SC SCH (22:21)
[2018-10-15] MEDS: DICYCLOMINE 10 MG CAP PO SCH (22:38)
[2018-10-15] MEDS: LISINOPRIL *2.5 MG* TAB PO SCH (22:44)
[2018-10-15] MEDS: SIMVASTATIN 40 MG TAB PO SCH (22:45)
[2018-10-15] MEDS: GABAPENTIN 300 MG CAP PO SCH (22:45)
[2018-10-15] MEDS: MONTELUKAST 10 MG TAB PO SCH (22:45)
[2018-10-15] MEDS: PANTOPRAZOLE 40MG TAB (PROTONIX) PO SCH (22:45)
[2018-10-15] MEDS: ENOXAPARIN 40 MG/0.4 ML SYRINGE (J1650) SC SCH (22:46)
[2018-10-15] MEDS: CARVedilol 3.125 MG TAB PO SCH (22:47)
[2018-10-16] MEDS ORDERED: HumaLOG INSULIN (NovoLOG) PER UNIT SC ONE (01:30)
[2018-10-16 02:00] VITALS: BP 119/54
[2018-10-16 06:00] VITALS: BP 119/64
[2018-10-16 06:34] LABS: HEMATOCRIT 34.3 % (36.0-47.0); HEMOGLOBIN 11.2 g/dl (12.0-15.5); MEAN CORPUSCULAR HEMOGLOBIN 29.4 pg (27.0-33.0); MEAN CORPUSCULAR HGB CONC 32.7 g/dl (32.0-36.5); PLATELET COUNT, AUTOMATED 286 10^3/uL (150-450); RED BLOOD COUNT 3.81 10^6/uL (4.00-5.40); WHITE BLOOD COUNT 11.2 10^3/uL (4.0-10.0)
[2018-10-16 07:02] LABS: BLOOD UREA NITROGEN 18 MG/DL (7-18); CALCIUM LEVEL 7.8 MG/DL (8.8-10.2); CARBON DIOXIDE LEVEL 23 MEQ/L (21-32); CHLORIDE LEVEL 103 MEQ/L (98-107); CREATININE FOR GFR 0.76 MG/DL (0.55-1.30); GLOMERULAR FILTRATION RATE > 60.0 (>45); GLUCOSE, FASTING 235 MG/DL (70-100); POTASSIUM SERUM 4.2 MEQ/L (3.5-5.1); SODIUM LEVEL 134 MEQ/L (136-145)
[2018-10-16] MEDS: LEVEMIR (INSULIN DETEMIR) 1 UNITS/0.01ML SC SCH (07:30)
[2018-10-16] MEDS ORDERED: LEVEMIR (INSULIN DETEMIR) 1 UNITS/0.01ML SC SCH (07:30)
[2018-10-16] MEDS: NS 1,000 ML IV SCH (09:12)
[2018-10-16] MEDS: ENOXAPARIN 40 MG/0.4 ML SYRINGE (J1650) SC SCH (09:13)
[2018-10-16] MEDS: HumaLOG INSULIN (NovoLOG) PER UNIT SC SCH ×3 (09:13→17:30)
[2018-10-16] MEDS: ASPIRIN 81 MG ENTERIC TAB PO SCH (09:14)
[2018-10-16] MEDS: FUROSEMIDE 20 MG TAB PO SCH (09:14)
[2018-10-16] MEDS: VITAMIN E 400 INTERNATIONAL UNITS CAP PO SCH (09:14)
[2018-10-16] MEDS: GABAPENTIN 300 MG CAP PO SCH ×3 (09:14→21:50)
[2018-10-16] MEDS: CARVedilol 3.125 MG TAB PO SCH ×2 (09:14→21:51)
[2018-10-16] MEDS: DICYCLOMINE 10 MG CAP PO SCH ×3 (09:14→17:28)
[2018-10-16] MEDS: SPIRONOLACTONE 25 MG TAB PO SCH (09:15)
[2018-10-16] MEDS: ESCITALOPRAM OXALATE 10 MG TAB (LEXAPRO) PO SCH (09:15)
[2018-10-16] MEDS: ONDANSETRON 4MG/2ML VIAL (J2405) IV PRN (09:23)
[2018-10-16 10:00] VITALS: BP 104/60
[2018-10-16 14:00] VITALS: BP 105/59
--- NOTE | 2018-10-16 15:57 | IPNPDOC ---
Subjective Date Seen The patient was seen on 10/16/18. Subjective Chief Complaint/HPI Patient seen and examined at the bedside. No acute overnight events noted. Objective Physical Examination General Exam: Positive: Alert, Cooperative, No Acute Distress ENT Exam: Positive: Atraumatic, Mucous membr. moist/pink Neck Exam: Negative: JVD Chest Exam: Positive: Clear to auscultation, Normal air movement Heart Exam: Positive: Rate Normal, Normal S1, Normal S2 Abdomen Exam: Positive: Soft; Negative: Tenderness Extremity Exam: Negative: Tenderness, Swelling Psych Exam: Positive: Oriented x 3 Assessment /Plan Plan/VTE VTE Prophylaxis Ordered?: Yes Plan Intractable Nausea/Vomiting 2/[address] abdomen and pelvis notable for known 2.2 cm left adrenal lesion which is concerning for metastatic disease, otherwise no acute infectious etiology noted Blood cultures negative thus far Zofran for nausea. Patient states that she is starting to feel better, however still has some nausea. Denies any vomiting or abdominal pain. We will advance the patient's diet as tolerated IDDM Continue insulin regimen as ordered, we will place particular caution to the patient's labile blood sugars. 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 Chao Follows with Dr. Quarles of oncology COPD, stable Nebs PRN Anxiety/depression Continue Lexapro Dyslipidemia Continue statin Hypertension, stable Continue meds as ordered Heart failure with preserved ejection fraction Compensated Continue Lasix, spironolactone as ordered DVT ppx: Lovenox subcutaneous Disposition-anticipate discharge in 24-48 hours pending continued clinical improvement. VS, I&O, 24H, [place]bone Vital Signs/I&O Vital Signs Date Time Temp Pulse Resp B/P (MAP) Pulse Ox O2 Delivery O2 Flow Rate FiO2 10/16/18 14:00 97.5 67 20 105/59 (74) 99 10/15/18 19:32 Room Air I&O- Last 24 Hours up to 6 AM 10/16/18 06:00 Intake Total 1300 ml Balance 1300 ml Laboratory Data 24H LABS Laboratory Tests 2 10/15/18 21:04: Bedside Glucose (Misc Panel) 448H 10/16/18 05:59: Nucleated Red Blood Cells % (auto) 0.0, Anion Gap 8, Glomerular Filtration Rate > 60.0, Blood Urea Nitrogen 18, Creatinine 0.76, Sodium Level 134L, Potassium Level 4.2, Chloride Level 103, Carbon Dioxide Level 23, Calcium Level 7.8#L CBC/BMP Laboratory Tests 10/16/18 05:59 Red Blood Count 3.81 L, Mean Corpuscular Volume 90.0, Mean Corpuscular Hemoglobin 29.4, Mean Corpuscular Hemoglobin Concent 32.7, Red Cell Distribution Width 14.3, Calcium Level 7.8 #L Microbiology Microbiology 10/15/18 Blood Culture - Preliminary, Resulted No growth after 24 hours . All specim... 10/15/18 Blood Culture - Preliminary, Resulted No growth after 24 hours . All specim... PIA CHING MD October 16, 2018 15:57
[2018-10-16 18:00] VITALS: BP 117/65
[2018-10-16] MEDS: PANTOPRAZOLE 40MG TAB (PROTONIX) PO SCH (21:50)
[2018-10-16] MEDS: MONTELUKAST 10 MG TAB PO SCH (21:50)
[2018-10-16] MEDS: LISINOPRIL *2.5 MG* TAB PO SCH (21:51)
[2018-10-16] MEDS: SIMVASTATIN 40 MG TAB PO SCH (21:52)
[2018-10-16 22:00] VITALS: BP 136/63
[2018-10-17 02:00] VITALS: BP 123/62
[2018-10-17 06:00] VITALS: BP 131/68
[2018-10-17] MEDS: ASPIRIN 81 MG ENTERIC TAB PO SCH (07:48)
[2018-10-17] MEDS: SPIRONOLACTONE 25 MG TAB PO SCH (07:48)
[2018-10-17] MEDS: ESCITALOPRAM OXALATE 10 MG TAB (LEXAPRO) PO SCH (07:49)
[2018-10-17] MEDS: VITAMIN E 400 INTERNATIONAL UNITS CAP PO SCH (07:49)
[2018-10-17] MEDS: CARVedilol 3.125 MG TAB PO SCH ×2 (07:49→21:27)
[2018-10-17] MEDS: DICYCLOMINE 10 MG CAP PO SCH ×3 (07:49→17:47)
[2018-10-17] MEDS: FUROSEMIDE 20 MG TAB PO SCH (07:50)
[2018-10-17] MEDS: GABAPENTIN 300 MG CAP PO SCH ×3 (07:50→21:27)
[2018-10-17] MEDS: ENOXAPARIN 40 MG/0.4 ML SYRINGE (J1650) SC SCH (07:50)
[2018-10-17] MEDS: HumaLOG INSULIN (NovoLOG) PER UNIT SC SCH ×3 (07:51→17:46)
[2018-10-17] MEDS: LEVEMIR (INSULIN DETEMIR) 1 UNITS/0.01ML SC SCH (07:51)
[2018-10-17 09:06] LABS: HEMATOCRIT 35.2 % (36.0-47.0); HEMOGLOBIN 11.7 g/dl (12.0-15.5); MEAN CORPUSCULAR HEMOGLOBIN 30.4 pg (27.0-33.0); MEAN CORPUSCULAR HGB CONC 33.2 g/dl (32.0-36.5); MEAN CORPUSCULAR VOLUME 91.4 fl (80.0-96.0); PLATELET COUNT, AUTOMATED 247 10^3/uL (150-450); RED BLOOD COUNT 3.85 10^6/uL (4.00-5.40)
[2018-10-17 09:55] LABS: BLOOD UREA NITROGEN 14 MG/DL (7-18); CALCIUM LEVEL 8.4 MG/DL (8.8-10.2); CARBON DIOXIDE LEVEL 23 MEQ/L (21-32); CHLORIDE LEVEL 99 MEQ/L (98-107); CREATININE FOR GFR 0.85 MG/DL (0.55-1.30); GLOMERULAR FILTRATION RATE > 60.0 (>45); GLUCOSE, FASTING 431 MG/DL (70-100); POTASSIUM SERUM 3.9 MEQ/L (3.5-5.1); SODIUM LEVEL 134 MEQ/L (136-145)
[2018-10-17 10:00] VITALS: BP 150/74
[2018-10-17 14:00] VITALS: BP 133/61
--- NOTE | 2018-10-17 15:59 | IPNPDOC ---
Subjective Date Seen The patient was seen on 10/17/18. Subjective Chief Complaint/HPI Patient seen and examined at the bedside. Reports that her nausea is somewhat improving, and denies any vomiting. However, notes that her appetite still remains low. Objective Physical Examination General Exam: Positive: Alert, Cooperative, No Acute Distress ENT Exam: Positive: Atraumatic, Mucous membr. moist/pink Neck Exam: Negative: JVD Chest Exam: Positive: Clear to auscultation, Normal air movement Heart Exam: Positive: Rate Normal, Normal S1, Normal S2 Abdomen Exam: Positive: Soft; Negative: Tenderness Extremity Exam: Negative: Tenderness, Swelling Psych Exam: Positive: Oriented x 3 Assessment /Plan Plan/VTE VTE Prophylaxis Ordered?: Yes Plan Intractable Nausea/Vomiting 2/[address] abdomen and pelvis notable for known 2.2 cm left adrenal lesion which is concerning for metastatic disease, otherwise no acute infectious etiology noted Blood cultures negative thus far Zofran for nausea. Patient states that she is starting to feel better, however still has some nausea. Denies any vomiting or abdominal pain. We will advance the patient's diet as tolerated IDDM Continue insulin regimen as ordered, we will place particular caution to the patient's labile blood sugars. We have continued to treat the patient's blood sugar levels conservatively as she has been noted to be very labile with her readings. 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 Chao Follows with Dr. Quarles of oncology COPD, stable Nebs PRN Anxiety/depression Continue Lexapro Dyslipidemia Continue statin Hypertension, stable Continue meds as ordered Heart failure with preserved ejection fraction Compensated Continue Lasix, spironolactone as ordered DVT ppx: Lovenox subcutaneous Disposition-anticipate discharge in 24 hours pending continued clinical improvement. VS, I&O, 24H, Fishbone Vital Signs/I&O Vital Signs Date Time Temp Pulse Resp B/P (MAP) Pulse Ox O2 Delivery O2 Flow Rate FiO2 10/17/18 14:00 98.5 72 19 133/61 (85) 99 10/15/18 19:32 Room Air I&O- Last 24 Hours up to 6 AM 10/17/18 06:00 Intake Total 3540 ml Output Total 725 ml Balance 2815 ml Laboratory Data 24H LABS Laboratory Tests 2 10/16/18 17:09: Bedside Glucose (Misc Panel) 252H 10/16/18 20:55: Bedside Glucose (Misc Panel) 229H 10/17/18 06:18: Bedside Glucose (Misc Panel) 432H 10/17/18 08:46: Nucleated Red Blood Cells % (auto) 0.0, Anion Gap 12, Glomerular Filtration Rate > 60.0, Blood Urea Nitrogen 14, Creatinine 0.85, Sodium Level 134L, Potassium Level 3.9, Chloride Level 99, Carbon Dioxide Level 23, Calcium Level 8.4L 10/17/18 11:30: Bedside Glucose (Misc Panel) 423H CBC/BMP Laboratory Tests 10/17/18 08:46 Red Blood Count 3.85 L, Mean Corpuscular Volume 91.4, Mean Corpuscular Hemoglobin 30.4, Mean Corpuscular Hemoglobin Concent 33.2, Red Cell Distribution Width 13.9, Calcium Level 8.4 L Microbiology Microbiology 10/15/18 Blood Culture - Preliminary, Resulted No Growth after 48 hours. All Specime... 10/15/18 Blood Culture - Preliminary, Resulted No Growth after 48 hours. All Specime... PIA CHING MD October 17, 2018 15:59
[2018-10-17 18:00] VITALS: BP 144/66
[2018-10-17] MEDS: LISINOPRIL *2.5 MG* TAB PO SCH (21:26)
[2018-10-17] MEDS: SIMVASTATIN 40 MG TAB PO SCH (21:27)
[2018-10-17] MEDS: MONTELUKAST 10 MG TAB PO SCH (21:27)
[2018-10-17] MEDS: PANTOPRAZOLE 40MG TAB (PROTONIX) PO SCH (21:27)
[2018-10-17 22:00] VITALS: BP 119/70
[2018-10-18 02:00] VITALS: BP 163/71
[2018-10-18 06:00] VITALS: BP 122/74
[2018-10-18] MEDS: ONDANSETRON 4MG/2ML VIAL (J2405) IV PRN (08:16)
[2018-10-18] MEDS: HumaLOG INSULIN (NovoLOG) PER UNIT SC SCH ×2 (08:17→12:34)
[2018-10-18] MEDS: DICYCLOMINE 10 MG CAP PO SCH ×2 (08:18→12:34)
[2018-10-18] MEDS: LEVEMIR (INSULIN DETEMIR) 1 UNITS/0.01ML SC SCH (08:18)
[2018-10-18] MEDS: VITAMIN E 400 INTERNATIONAL UNITS CAP PO SCH (08:18)
[2018-10-18] MEDS: ENOXAPARIN 40 MG/0.4 ML SYRINGE (J1650) SC SCH (08:18)
[2018-10-18 08:19] VITALS: BP 122/74
[2018-10-18] MEDS: CARVedilol 3.125 MG TAB PO SCH (08:19)
[2018-10-18] MEDS: FUROSEMIDE 20 MG TAB PO SCH (08:19)
[2018-10-18] MEDS: GABAPENTIN 300 MG CAP PO SCH (08:19)
[2018-10-18] MEDS: SPIRONOLACTONE 25 MG TAB PO SCH (08:19)
[2018-10-18] MEDS: ASPIRIN 81 MG ENTERIC TAB PO SCH (08:19)
[2018-10-18] MEDS: ESCITALOPRAM OXALATE 10 MG TAB (LEXAPRO) PO SCH (08:19)
[2018-10-18 11:56] VITALS: BP 180/90
[2018-10-18 11:57] VITALS: BP 129/62
--- NOTE | 2018-10-18 13:55 | DS.PDOC ---
Discharge Summary General Date of Admission October 15, 2018 at 17:26 Date of Discharge 10/18/18 Discharge Summary PROCEDURES PERFORMED DURING STAY: None. 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 HISTORY OF PRESENT ILLNESS: . 63-year-old female with medical history of lung cancer with mets on radiation therapy, IDDM, and hx Cervical cancer presented to the ER with complaints of nausea for the past 24-36 hours and have not been able to eat much. Recently diagnosed with lung cancer and started on treatment recently so far only with radiation. She reports no other complaints apart from nausea and vomiting. She had not been able to keep food down for more than a day and has been cautious with her insulin usage as she is very sensitive to even a small dose of short acting insulin. Intractable Nausea/Vomiting 2/[address] abdomen and pelvis notable for known 2.2 cm left adrenal lesion which is concerning for metastatic disease, otherwise no acute infectious etiology noted Blood cultures negative Zofran for nausea. Patient states that she is starting to feel better. Denies any vomiting or abdominal pain. Advanced diet was tolerated IDDM Continue insulin regimen as ordered, patient advised to be cautious with insulin regimen given her labile blood sugars. 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 Chao Follows with Dr. Quarles of oncology--patient advised to follow-up in 2-4 weeks COPD, stable Nebs PRN Anxiety/depression Continue Lexapro Dyslipidemia Continue statin Hypertension, stable Continue meds as ordered Heart failure with preserved ejection fraction Compensated Continue Lasix, spironolactone as ordered DISCHARGE MEDICATIONS: Please see below. ALLERGIES: Please see below. PHYSICAL EXAMINATION ON DISCHARGE: VITAL SIGNS: Please see below. General Exam: Positive: Alert, Cooperative, No Acute Distress ENT Exam: Positive: Atraumatic, Mucous membr. moist/pink Neck Exam: Negative: JVD Chest Exam: Positive: Clear to auscultation, Normal air movement Heart Exam: Positive: Rate Normal, Normal S1, Normal S2 Abdomen Exam: Positive: Soft; Negative: Tenderness Extremity Exam: Negative: Tenderness, Swelling Psych Exam: Positive: Oriented x 3 LABORATORY DATA: Please see below. IMAGING: ACUTE ABDOMINAL SERIES: Three views. HISTORY: Abdomen pain. COMPARISON STUDY: August 26, 2018. FINDINGS: The lungs are hyperinflated overall. There is a somewhat elongate spiculated lesion in the right upper lobe again noted with volume loss in the right upper lobe elevating the right hilus and elevating the minor fissure. This is actually less prominent than on the August 26, 2018 study. The infiltrate noted in the left base on the August chest x-ray has resolved. There is no evidence of free subdiaphragmatic air. No new infiltrate is seen. Heart is not enlarged. Supine and erect views of the abdomen show numerous of scattered surgical clips throughout the abdomen and pelvis. The bowel gas pattern is normal. There is no significant air fluid level. No evidence of free intraperitoneal air. IMPRESSION: Scattered fairly numerous surgical clips in the abdomen and pelvis. Normal bowel gas pattern. Somewhat spiculated density in the right upper lobe with volume loss in the right upper lobe as previously noted. No evidence of obstruction or free intraperitoneal air in the abdomen. Clinical: Acute abdominal pain. Technique: Axial contrast enhanced images from the lung bases to the pubic symphysis using 100 ml Isovue 370 intravenous contrast material with coronal and sagittal re-formations. Comparison: 08/23/2018. Findings: Lung bases are clear. Visualized heart and pericardium normal. Liver, spleen, atrophic pancreas, gallbladder, right adrenal gland and bilateral kidneys are normal. Left adrenal mass measures 2.2 cm and is concerning for metastatic focus. The enteric system is without obstruction or acute inflammatory process. Pelvis demonstrates normal bladder and evidence for prior hysterectomy. No ascites. No free air. No obvious adenopathy. Abdominal aorta without aneurysm or dissection. Musculoskeletal structures without focal osseous abnormality. Impression: 1. 2.2 cm partially enhancing left adrenal lesion concerning for metastatic disease. 2. No further acute abdominopelvic pathology appreciated. Clinical: Headache and vomiting with history of metastatic disease. Comparison: MRI dated 09/18/2018 . Findings: Age-related atrophy and microvascular ischemic changes are appreciated. Very subtle area of low density is appreciated in the high right parietal lobe (images 20-22) and are nonspecific. No significant edema or mass/mass effect identified. The ventricles and sulci are symmetric. Steve-white differentiation is maintained. There is no evidence for acute intracranial hemorrhage, mass/mass effect, pathology or infarction. No extra-axial fluid collection. Calvarium is intact. Paranasal sinuses and mastoid air cells are clear. Impression: Age related atrophy and microvascular ischemic changes. Focal area of low density in the high right parietal white matter which is nonspecific. No acute intracranial hemorrhage, infarction, or mass/mass effect. PROGNOSIS: Poor long-term prognosis ACTIVITY: As tolerated. DIET: As tolerated DISCHARGE PLAN: DISPOSITION: . Home DISCHARGE INSTRUCTIONS: Follow-up with PCP within 7 days. Follow-up with oncology within 2-4 weeks DISCHARGE CONDITION: Stable. TIME SPENT ON DISCHARGE: Greater than 30 minutes. Vital Signs/I&Os Vital Signs Date Time Temp Pulse Resp B/P (MAP) Pulse Ox O2 Delivery O2 Flow Rate FiO2 10/18/18 11:57 98.6 74 24 129/62 (84) 96 10/15/18 19:32 Room Air I&O- Last 24 Hours up to 6 AM 10/18/18 05:59 Intake Total 1230 ml Output Total 2275 ml Balance -1045 ml Laboratory Data Labs 24H Laboratory Tests 2 10/17/18 16:43: Bedside Glucose (Misc Panel) 353H 10/17/18 20:08: Bedside Glucose (Misc Panel) 310H 10/18/18 05:20: Bedside Glucose (Misc Panel) 326H 10/18/18 12:23: Bedside Glucose (Misc Panel) 398H FSBS Laboratory Tests Test 10/17/18 16:43 10/17/18 20:08 10/18/18 05:20 10/18/18 12:23 Range/Units Bedside Glucose (Misc Panel) 353 310 326 398 80-115 MG/DL Microbiology Microbiology 10/15/18 Blood Culture - Preliminary, Resulted No Growth after 72 hours. All specime... 10/15/18 Blood Culture - Preliminary, Resulted No Growth after 72 hours. All specime... Discharge Medications Scheduled Ascorbic Acid (Vitamin C) 500 Mg Tab, 500 MG PO BID, (Reported) Aspirin (Aspirin EC) 81 Mg Tab, 81 MG PO DAILY, (Reported) Carvedilol (Carvedilol) 3.125 Mg Tab, 3.125 MG PO BID, (Reported) Dicyclomine HCl (Dicyclomine HCl) 20 Mg Tab, 20 MG PO WM, (Reported) Escitalopram Oxalate (Escitalopram Oxalate) 20 Mg Tab, 20 MG PO DAILY, (Reported) Furosemide (Furosemide) 20 Mg Tablet, 20 MG PO DAILY, (Reported) Gabapentin (Gabapentin) 300 Mg Cap, 300 MG PO TID, (Reported) Insulin Degludec (Tresiba Flextouch U-100) 100 Unit/Ml Inj, 10 UNIT SC DAILY, (Reported) Insulin Human Lispro (Novolog) 100 U/Ml Inj, 1 DOSE SC WM, (Reported) PER SLIDING SCALE Lisinopril (Lisinopril) 2.5 Mg Tab, 2.5 MG PO QHS, (Reported) Montelukast Sodium (Montelukast Sodium) 10 Mg Tab, 10 MG PO QHS, (Reported) Multivit-Min/Folic Acid/Vit K1 (Multi For Her 50 Plus Softgel) 1 Each Capsule, 1 EACH PO DAILY, (Reported) Pantoprazole Sodium (Pantoprazole Sodium) 40 Mg Tab, 40 MG PO QPM, (Reported) Simvastatin (Simvastatin) 40 Mg Tab, 40 MG PO QHS, (Reported) Spironolactone (Spironolactone) 25 Mg Tablet, 25 MG PO DAILY, (Reported) Vitamin E (Vitamin E) 400 Unit Cap, 400 UNIT PO DAILY, (Reported) Scheduled PRN Ondansetron HCl (Zofran) 4 Mg Tab, 4 MG PO TID PRN for NAUSEA OR VOMITING, (Reported) Allergies Coded Allergies: Penicillins (Verified Allergy, Unknown, 08/23/18) Sulfa (Sulfonamide Antibiotics) (Verified Allergy, Unknown, 08/23/18) PIA CHING MD October 18, 2018 13:55
[2018-10-19] MEDS ORDERED: TRES1INJ2 SC (23:09)
[2018-10-19] MEDS ORDERED: CAL-TAB4 PO (23:09)
== END 2018-10-18 14:36 | disposition home or self-care (01) ==
LOC: M ED 11:21 → M ED INP 17:26 → M MSPAV 20:47
PROVIDERS: ADMIT Student in an Organized Health Care Education/Training Program; ATTEND Internal Medicine
DX: T66.XXXA Radiation sickness, unspecified, initial encounter (principal); R11.2 Nausea with vomiting, unspecified; C34.91 Malignant neoplasm of unspecified part of right bronchus or lung; C79.31 Secondary malignant neoplasm of brain; E27.8 Other specified disorders of adrenal gland; E11.9 Type 2 diabetes mellitus without complications; J44.9 Chronic obstructive pulmonary disease, unspecified; F41.9 Anxiety disorder, unspecified; F32.9 Major depressive disorder, single episode, unspecified; Z79.4 Long term (current) use of insulin; E78.49 Other hyperlipidemia; Z79.899 Other long term (current) drug therapy; Z85.41 Personal history of malignant neoplasm of cervix uteri; Z88.0 Allergy status to penicillin; Z88.2 Allergy status to sulfonamides; Z79.82 Long term (current) use of aspirin
CPT/HCPCS: 36415; 70450; 74021; 74177; 80048; 80076; 82550; 82553; 83690; 84484; 85025; 85027; 86850; 86900; 86901; 87040; 93005; 93041; 96361; 96372; 96374; 96375; 96376; 99285; G0378; J1170; J1650; J2405; Q9967

== ENCOUNTER 2018-10-19 23:00 | Emergency (ER) | payer MEDICARE, BC ==
[~2018-10-19] VITALS: Ht 160 cm; Wt 38.6 kg
[2018-10-19] MEDS ORDERED: TRES1INJ2 SC (23:09)
[2018-10-19] MEDS ORDERED: CAL-TAB4 PO (23:09)
[2018-10-19] MEDS ORDERED: METOCLOPRAMIDE INJ 10MG/2ML VIAL (J2765) IV ONE (23:45)
[2018-10-19] MEDS ORDERED: NS 1,000 ML IV ONE (23:45)
[2018-10-20 00:06] LABS: VENOUS BASE EXCESS 2.2 (-2.0-2.0); VENOUS HCO3 26.9 MEQ/L (23.0-27.0); VENOUS PARTIAL PRESSURE CO2 42.2 mmHg (38.0-50.0); VENOUS PARTIAL PRESSURE O2 43.7 mmHg (30.0-50.0); VENOUS PH 7.423 UNITS (7.330-7.430); VENOUS STANDARD HCO3 26.1 MEQ/L; VENOUS TOTAL CO2 28.2 MEQ/L (24.0-28.0)
[2018-10-20 00:10] LABS: BASO # 0.1 10^3/uL (0.0-0.2); BASO % 0.4 % (0.0-1.0); HEMATOCRIT 36.6 % (36.0-47.0); HEMOGLOBIN 12.4 g/dl (12.0-15.5); LYMPH # 1.3 10^3/uL (1.5-4.5); LYMPH % 9.5 % (24.0-44.0); MEAN CORPUSCULAR HEMOGLOBIN 29.4 pg (27.0-33.0); MEAN CORPUSCULAR HGB CONC 33.9 g/dl (32.0-36.5); MEAN CORPUSCULAR VOLUME 86.7 fl (80.0-96.0); MONO # 0.8 10^3/uL (0.0-0.8); NEUTROPHILS # 11.5 10^3/uL (1.8-7.7); NEUTROPHILS % 83.2 % (36.0-66.0); PLATELET COUNT, AUTOMATED 253 10^3/uL (150-450); RED BLOOD COUNT 4.22 10^6/uL (4.00-5.40); WHITE BLOOD COUNT 13.8 10^3/uL (4.0-10.0)
[2018-10-20 00:24] LABS: ALBUMIN 3.5 GM/DL (3.2-5.2); BILIRUBIN,DIRECT 0.1 MG/DL (0.0-0.2); BILIRUBIN,TOTAL 0.5 MG/DL (0.2-1.0); TOTAL PROTEIN 7.3 GM/DL (6.4-8.2)
[2018-10-20] MEDS ORDERED: KETOROLAC 30 MG/ML VIAL (J1885) IV ONE (01:15)
[2018-10-20] MEDS ORDERED: ONDANSETRON 4MG/2ML VIAL (J2405) IV ONE (01:15)
[2018-10-20] MEDS ORDERED: REGL10TA6 PO (03:50)
[2018-10-20 04:04] VITALS: BP 119/59
== END 2018-10-20 04:05 | disposition home or self-care (01) ==
LOC: M ED 23:00
DX: R11.10 Vomiting, unspecified (principal); E11.9 Type 2 diabetes mellitus without complications; Z87.891 Personal history of nicotine dependence; Z88.0 Allergy status to penicillin; Z88.2 Allergy status to sulfonamides; Z79.899 Other long term (current) drug therapy; Z79.4 Long term (current) use of insulin; Z79.82 Long term (current) use of aspirin
CPT/HCPCS: 80047; 80076; 82803; 83605; 83690; 83930; 85025; 87040; 93041; 96361; 96374; 96375; 99285; J1885; J2405; J2765

== ENCOUNTER 2018-10-31 17:01 | Emergency (ER) | payer BC, MEDICARE ==
[~2018-10-31] VITALS: Ht 160 cm; Wt 43.2 kg
[~2018-10-31 17:01] MED LIST changes: +CAL-TAB4 PO; +REGL10TA6 PO
[2018-10-31] MEDS ORDERED: NS 1,000 ML IV ONE (18:30)
[2018-10-31] MEDS ORDERED: ONDANSETRON 4MG/2ML VIAL (J2405) IV ONE (18:30)
[2018-10-31] MEDS ORDERED: KETOROLAC 30 MG/ML VIAL (J1885) IV ONE (18:30)
[2018-10-31 18:35] LABS: BASO # 0.1 10^3/uL (0.0-0.2); BASO % 0.5 % (0.0-1.0); EOS % 0.2 % (0.0-3.0); HEMATOCRIT 38.7 % (36.0-47.0); HEMOGLOBIN 13.2 g/dl (12.0-15.5); LYMPH # 0.6 10^3/uL (1.5-4.5); LYMPH % 5.9 % (24.0-44.0); MEAN CORPUSCULAR HGB CONC 34.1 g/dl (32.0-36.5); MEAN CORPUSCULAR VOLUME 90.8 fl (80.0-96.0); MONO # 0.8 10^3/uL (0.0-0.8); NEUTROPHILS # 8.4 10^3/uL (1.8-7.7); NEUTROPHILS % 84.8 % (36.0-66.0); PLATELET COUNT, AUTOMATED 264 10^3/uL (150-450); RED BLOOD COUNT 4.26 10^6/uL (4.00-5.40); WHITE BLOOD COUNT 9.9 10^3/uL (4.0-10.0)
[2018-10-31 19:26] LABS: ALBUMIN 3.1 GM/DL (3.2-5.2); ALT/SGPT 25 U/L (12-78); BILIRUBIN,DIRECT 0.1 MG/DL (0.0-0.2); BILIRUBIN,TOTAL 0.5 MG/DL (0.2-1.0); BLOOD UREA NITROGEN 17 MG/DL (7-18); CALCIUM LEVEL 8.9 MG/DL (8.8-10.2); CARBON DIOXIDE LEVEL 22 MEQ/L (21-32); CHLORIDE LEVEL 93 MEQ/L (98-107); CREATININE FOR GFR 0.77 MG/DL (0.55-1.30); GLOMERULAR FILTRATION RATE > 60.0 (>45); GLUCOSE, FASTING 312 MG/DL (70-100); LIPASE 65 U/L (73-393); POTASSIUM SERUM 4.8 MEQ/L (3.5-5.1); SODIUM LEVEL 127 MEQ/L (136-145); TOTAL PROTEIN 7.1 GM/DL (6.4-8.2)
--- NOTE | 2018-10-31 20:10 | REPVR ---
EXAM: CT Head Without Contrast EXAM DATE/TIME: 10/31/2018 6:52 PM CLINICAL HISTORY: 63 years old, female; Signs and symptoms; Other: Nausea, vomiting; Additional info: N/v TECHNIQUE: Imaging protocol: Axial computed tomography images of the head without contrast. Radiation optimization: All CT scans at this facility use at least one of these dose optimization techniques: automated exposure control; mA and/or kV adjustment per patient size (includes targeted exams where dose is matched to clinical indication); or iterative reconstruction. COMPARISON: No relevant prior studies available. FINDINGS: Brain: There is an area of hypodensity within the superior right parietal cortical and subcortical tissues, consistent with a subacute or chronic infarct. There are periventricular foci of white matter hypodensity, likely representing small vessel ischemic disease in a patient this age. The acuity of the white matter disease is indeterminate. The white-castro differentiation is otherwise preserved demonstrating no acute territorial type infarct. No acute intracranial hemorrhage is seen. Calcifications are identified along the tentorium. Midline shift: There is no midline shift. Ventricles: There is mild prominence of the ventricles and frontal sulci, compatible with atrophy. Bones/joints: The calvarium demonstrates no evidence for a depressed fracture. Sinuses: A mucous retention cyst or polyp is visualized within the right maxillary sinus. Mastoid air cells: No mastoid effusion. Soft tissues: Unremarkable. Vasculature: Intracranial atherosclerosis visualized. IMPRESSION: 1. There is an area of hypodensity within the superior right parietal cortical and subcortical tissues, consistent with a subacute or chronic infarct. Otherwise, there is no acute territorial type infarct. 2. No acute intracranial hemorrhage. 3. There are periventricular foci of white matter hypodensity, likely representing small vessel ischemic disease in a patient this age. 4. Mild atrophy. Electronically signed by: Rodrick Kern On 10/31/2018 20:09:49 PM
--- NOTE | 2018-10-31 20:24 | REP ---
HISTORY: Abdominal pain. COMPARISON: Supine and upright views of the chest of 10/15/2018. There is an abnormal right upper lobe opacity with abnormal elevation of the right minor fissure which has increased from the prior exam. The patient has a history of right upper lobe neoplasm. There is no other significant change in the lung vicekrs or cardiomediastinal silhouette. There is no free subdiaphragmatic air. Supine and upright views of the abdomen are essentially unchanged from the prior exam. IMPRESSION: Lung findings as described above. No other significant change. Electronically Signed by Jamaal Recinos DO 11/01/2018 12:41 P
[2018-10-31 21:00] VITALS: BP 145/70
--- NOTE | 2018-11-01 08:06 | ED PDOC ---
Post-Departure Follow-Up dr decker faxed formal reprot of ct head for fu Mireille Michelle MD Nov 01, 2018 08:06
== END 2018-10-31 21:34 | disposition home or self-care (01) ==
LOC: M ED 17:01
DX: E86.0 Dehydration (principal); R91.8 Other nonspecific abnormal finding of lung field; E11.9 Type 2 diabetes mellitus without complications; I10 Essential (primary) hypertension; Z85.118 Personal history of other malignant neoplasm of bronchus and lung; Z85.43 Personal history of malignant neoplasm of ovary; Z79.899 Other long term (current) drug therapy; Z79.82 Long term (current) use of aspirin; Z79.4 Long term (current) use of insulin; Z88.0 Allergy status to penicillin; Z88.1 Allergy status to other antibiotic agents; Z88.2 Allergy status to sulfonamides
CPT/HCPCS: 70450; 74021; 80048; 80076; 81001; 83690; 85025; 96361; 96374; 96375; 99284; J1885; J2405

== ENCOUNTER → 2018-11-04 | Outpatient (CLI) | payer MEDICARE, BC ==
--- NOTE | 2018-11-04 14:44 | PFTRPT ---
Site: [facility], [address] [place] [address], [id number] ID: [id number] Name: VIKA LAWRENCE Visit Date: 11/04/2018 Second ID: [id number] Referring Doctor: MD Torres Daniel Reviewing Doctor: Martin Storey MD Improvement Manager: Harley CERVANTES RRT Age: 63 : 1955 Sex: Female Race: Height: 63.00 Inches Weight: 85.00 Lbs BSA: 1.34 Order IDs: [id number] Requested Test(s): <RESP-PFT.DLCO> Diagnosis: LUNG CA test appear to be valid, although the ATS standard for "end of test" was not met. Pt. coughing. Pt was given four puffs of albuterol for postbronchodilator. Review Status: Not Reviewed Pre-Bronch Post-Bronch Pred Actual %Pred Actual %Chng SPIROMETRY FVC (L) 3.05 2.83 92 2.85 FEV1 (L) 2.33 1.53 65 1.56 2 FEV1/FVC (%) 77 54 69 55 1 FEF 25% (L/sec) 4.77 1.71 35 1.68 -2 FEF 50% (L/sec) 3.50 1.18 33 1.22 3 FEF 75% (L/sec) 1.10 0.39 35 0.53 36 FEF 25-75% (L/sec) 2.09 0.87 41 1.02 17 FEF Max (L/sec) 5.87 2.09 35 2.53 20 FIVC (L) 2.92 1.74 -40 FIF 50% (L/sec) 2.92 2.57 88 1.19 -53 FIF Max (L/sec) 2.57 1.62 -36 MVV (L/min) 87 34 39 Expiratory Time (sec) 7.50 4.55 -39 Back Extrap Vol (L) 0.03 0.03 3 Time To FEFmax (sec) 0.092 0.083 -9 LUNG VOLUMES SVC (L) 2.87 2.91 101 IC (L) 2.12 1.60 75 ERV (L) 0.75 1.31 174 TGV (L) 2.78 3.90 140 RV (Pleth) (L) 2.03 2.59 127 TLC (Pleth) (L) 4.90 5.50 112 RV/TLC (Pleth) (%) 41 47 115 DIFFUSION DLCOunc (ml/min/mmHg) 20.71 11.23 54 DL/VA (ml/min/mmHg/L) 4.23 2.98 70 VA (L) 4.90 3.77 77 BHT (sec) 10.86 IVC (L) 2.63 TLC (SB) (L) 3.92 AIRWAYS RESISTANCE Raw (cmH2O/L/s) 1.86 2.24 120 Gaw (L/s/cmH2O) 1.03 0.45 43 sRaw (cmH2O*s) 4.76 9.01 189 sGaw (1/cmH2O*s) 0.20 0.11 55
== END ==
LOC: M CARPUL 13:46
PROVIDERS: ATTEND Radiology Radiation Oncology
DX: C34.90 Malignant neoplasm of unspecified part of unspecified bronchus or lung (principal)

== ENCOUNTER 2018-11-14 14:55 | Outpatient (RCR) | payer BC, MEDICARE ==
--- NOTE | 2018-10-21 13:33 | RADONC ---
RADIATION ONCOLOGY PROGRESS NOTE DATE OF SERVICE: 10/21/2018 CHART NUMBER: [id number]. PROGRESS NOTE: Mrs. Villarreal with the diagnosis of adenocarcinoma of the right upper lobe stage IVB is currently receiving local regional radiation therapy. She was ported today to start an additional course of radiation therapy to the right lung. Mrs. Villarreal wanted to review her PET scans today, which we did to her satisfaction. In addition, she was ported to start her radiation therapy treatments to her lung. The port films looked good, and the patient tolerated the film porting well with no significant untoward side effects. She will initiate her first dose of radiotherapy to the lung today. It is planned to administer approximately 4000 cGy and reevaluate. EXAMINATION FINDINGS: The skin within the irradiated volume shows no evidence of erythema and no focal desquamation. The remainder of the physical examination is unchanged. IMPRESSION: The patient appears to have tolerated her port imaging today well in preparation to administer her local regional radiotherapy to the right lung. MTDD
--- NOTE | 2018-10-29 07:21 | RADONC ---
RADIATION ONCOLOGY PROGRESS NOTE DATE: 10/28/2018 CHART #: [id number] Ms. Villarreal has completed whole-brain radiation for a dose of 3000 cGy on 10/07/2018. She is now thus far at a dose of 1200 cGy to her right lung and mediastinal region. The patient is tolerating her radiation without significant difficulties. REVIEW OF SYSTEMS: The patient's review of systems is positive for continued weakness. She also has even greater difficulties controlling her blood sugar. She reports that her blood sugar periodically is now going above 600 without even eating. She is being followed by Dr. Benítez who is aware of this. As per my previous note, great care was taken in treating the brain by not giving Decadron during treatment. I had written a prescription for 2 mg of Decadron if the patient had any issues, but she was able complete whole brain radiation with only a slight minimal headache near the end. I advised her not to use them unless she spoke to me first. Even without the Decadron, her blood sugars have been shooting up above the scale of her monitor. Her device reads to 600 and has now routinely been just saying high which means higher than the reading of 600. I have once again advised her to work closely with Dr. Benítez as I am concerned with this. The patient does continue to have some occasional headaches and dizziness, most likely secondary to radiation, but I am just very concerned with any idea of giving this patient any steroids which could be dangerous. Apparently, the patient was seen by her medical oncologist, Dr. Quarles, who was concerned that she was not on steroids. In this situation, I clearly do not agree with Dr. Quarles. I think a blood sugar level that is jumping up to 600 frequently far more of a danger than this patient's occasional headaches and dizziness. Decadron is used for symptomatic relief of radiation induced headaches. I see no justification of risking critical blood sugar elevations for a mild head ache. I have informed the patient to get approval from her board of directors, Dr. Benítez, and to have the Medical Oncologist contact me prior to taking decadron if she were instructed to do so. As far as the lung radiation is going, the patient is tolerating it very well. We are following our original plan for irradiating the lung at this time. I had previously spoken with her medical oncologist, Dr. Quarles, about these issues as is clearly documented in my previous note. Indeed, she was also presented at our multidisciplinary tumor conference. There was a question of whether or not she could tolerate systemic therapy and therefore radiation was recommended to this most critical area initially. On physical exam, the patient's skin is in excellent condition with no evidence of radiation change present. The remainder of her physical exam remains unchanged. Radiation will continue as scheduled. MTDD
--- NOTE | 2018-11-05 08:57 | RADONC ---
RADIATION ONCOLOGY PROGRESS NOTE: DATE: 11/04/2018 CHART NUMBER: [id number] Ms. Villarreal is presently at a dose of 1800 cGy to her right lung and is tolerating treatments quite well at this point with no complaints related to her radiation therapy. She is having no significant difficulty swallowing or other problems at this time. The patient reports that she has been working with Dr. Benítez and increased her insulin somewhat. Her blood sugars are now down into the 400s. She has even gotten them down to the 100s at some point. The patient is scheduled for a pulmonary function test so that our final coned-down can be undertaken. PHYSICAL EXAMINATION: The patient's skin is a good condition with no evidence of radiation change present. There is no moist dry desquamation. The remainder of her physical exam remains unchanged. Ms. Villarreal is tolerating treatments quite well and radiation will continue as scheduled.
--- NOTE | 2018-11-12 13:37 | RADONC ---
RADIATION ONCOLOGY PROGRESS NOTE: DATE: 11/11/2018 CHART NUMBER: [id number] Mrs. Villarreal with a diagnosis of lung cancer and brain metastasis is currently receiving local regional radiotherapy to her right lung and her dose of radiotherapy is currently 2600 cGy of an anticipated 6600 cGy. She appears to be tolerating her radiotherapy reasonably well without any significant complaints. She does say that she feels somewhat confused and tired in the afternoons. She denies any nausea, vomiting, coughing, sputum production or hemoptysis. She also denies significant odynophagia or dysphagia. Her energy level is satisfactory and she is able to maintain many day-to-day activities without any alteration of her lifestyle. EXAMINATION FINDINGS: The skin with the irradiated volume shows neither significant erythema nor desquamation. There is no palpable peripheral lymphadenopathy. Lungs are distant but clear. Abdomen negative. The remainder of the physical examination is unchanged. IMPRESSION: Tolerating therapy reasonably well. PLAN: Treatments to continue.
== END 2018-11-17 ==
LOC: M ONCR 14:55
PROVIDERS: ATTEND Radiology Radiation Oncology
DX: C34.91 Malignant neoplasm of unspecified part of right bronchus or lung (principal)

== ENCOUNTER 2018-11-19 16:00 | Outpatient (CLI) | payer MEDICARE, BC ==
[~2018-11-19] VITALS: Ht 157.5 cm; Wt 39.0 kg
[~2018-11-19 16:00] MED LIST changes: -SIMV40TA2 PO; +SIMV40TA20 PO
[2018-11-19 16:57] VITALS: BP 109/56
[2018-11-19] MEDS ORDERED: NS 500 ML IV SCH (17:15)
[2018-11-19 17:49] VITALS: BP 133/18
== END 2018-11-19 17:48 | disposition home or self-care (01) ==
LOC: M INFU 16:00
PROVIDERS: ATTEND Radiology Radiation Oncology
DX: E86.0 Dehydration (principal)

== ENCOUNTER 2018-11-25 14:00 | Outpatient (RCR) | payer MEDICARE, BC ==
[2018-09-12 14:34] VITALS: BP 102/69
--- NOTE | 2018-09-17 07:48 | MEDONC ---
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 Referred by Carla Patterson MD of pulmonology for medical oncology management. 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 She has a remote five pack year smoking history. She has a personal history of localized cervical cancer, underwent DORI-BSO, no adjuvant therapy or radiation. No recurrence since. She recently presented to the emergency room with what she thought were flu symptoms, nausea, vomiting, shortness of breath, fever, feeling poorly. Chest x-ray showed a right lung abnormality, CT revealed a 2.6 cm spiculated right upper lobe mass, 2.3 cm right subcarinal lymph node. The right upper lobe mass was confluent with the right main stem bronchus. Diagnostic bronchoscopy and EBUS 08/26/2018 showed a friable malignant appearing lesion in the right mainstem bronchus which was biopsied, extension into the right lung, biopsy of the right lung mass, subcarinal node, a right paratracheal node seen on EBUS were all positive for poorly differentiated adenocarcinoma. A left hilar node seen by EBUS and biopsied was negative for malignancy. EGFR, ALK, ROS1 all are negative; PD-L1 and BRAF unknown currently. In addition, abdomen and pelvis CT 08/23/2018 revealed a 2.4 cm heterogeneous left adrenal mass, possibly malignant, no other below the diaphragm abnormalities. Today Dilia denies hemoptysis, she is feeling better since her hospitalization but is frightened about her current diagnosis. She is very slender and says this is lifelong relating it to her diabetes, though she and her thinks she may have dropped a few pounds as her weight here seems lower than on all recent checks. She denies chest pain per se, musculoskeletal pain, headache, visual disturbance, numbness, weakness. PAST MEDICAL HISTORY: Chronic obstructive pulmonary disease (COPD). Type 1 diabetes mellitus. Hypertension. Asthma. PAST SURGICAL HISTORY: DORI-BSO age 24. Tonsillectomy. Cataract surgery bilaterally. FAMILY HISTORY: A sister diagnosed with lung cancer, a sister with a history of cervical cancer, father with brain cancer age 65, mother with colon cancer age 55. SOCIAL HISTORY: The patient has a 5-7 pack year smoking history. Stopped at age 24. Denies alcohol. She is retired from working at [employer]. , lives with her . Grew up in [place]. REVIEW OF SYSTEMS: 12 system written review completed by the patient. Positive for increased fatigue lately, feeling of palpitations, loss of strength, poor memory. ALLERGIES: 1. Penicillin. 2. Sulfa. MEDICATIONS: - ascorbic acid 500 mg b.i.d. - aspirin 81 mg daily - carvedilol 3.125 mg b.i.d. - dicyclomine 20 mg daily - escitalopram 20 mg daily - Lasix 20 mg daily - gabapentin 300 mg daily - insulin 10 units daily - insulin lispro one dose SC - levofloxacin 750 mg daily for four additional days - lisinopril 2.5 mg daily - montelukast 10 mg daily - multivitamin daily with folic acid and vitamin K daily - ondansetron 4 mg t.i.d. p.r.n. nausea - pantoprazole 40 mg daily - simvastatin 40 mg daily - spironolactone 25 mg daily - vitamin E daily PHYSICAL EXAMINATION: Height 5 feet 2 inches, weight 39 kg, BMI 15.6, blood pressure 102/69, heart rate 71, respiratory 16, O2 sat 99%. Patient is a very slender, petite older woman in no distress. RESPIRATORY: Clear lungs in the very upper and basal lung vickers with some inspiratory wheezes dominating the right lung vickers, occasional end inspiratory wheeze on the left lung field. No dullness to percussion at the base. CARDIAC: S1-S2, mild tachycardia regular rhythm. No murmur. ABDOMEN: Soft, nontender, nondistended, no hepatosplenomegaly or mass. EXTREMITIES: No edema. LYMPH NODES: No submandibular, cervical, supraclavicular or axillary adenopathy bilaterally. LABS: No new labs today. Recent labs include 08/27/2018 CBC with WBC 22, hemoglobin 11.7, hematocrit 35, platelets 419. Normal electrolytes, BUN, creatinine, glucose 351, normal calcium, phosphorus, magnesium. Normal liver functions, but low albumin 2.9 on 08/23/2018. Notably, alk phos mildly elevated at 160. IMPRESSION: Clinical stage III, T2N2M0 versus stage GUANAKO I5H5H2h adenocarcinoma of lung involving dominant right mass with endobronchial invasion, mediastinal involvement and indeterminate 2.4 cm left adrenal mass with some nodular appearance on CT suspicious for metastatic focus. Control Valve Technician mutation negative. PD-L1/MMR/BRAF unknown. ECOG performance status 0. Brittle type 1 diabetes. I discussed at length with Dilia and her the diagnosis of advanced non-small cell lung cancer with adenocarcinoma without stacker driver mutation. I raised the possibility of stage IV disease based on the adrenal nodule. She is scheduled for PET 09/17/2018 and this will be likely deciding. I reviewed palliative and curative intent treatments. Combined chemoradiation for stage III disease, multidrug systemic therapy for stage IV disease. Dilia was quite teary initially but bravely pursued the conversation. I reviewed palliative treatment such as carboplatin/pemetrexed/pembrolizumab for stage IV disease, outlined the schedule, briefly reviewed side effects. I also noted the staging role of brain MRI and she is willing to go through this. Dilia and her expressed trepidation about the PET scan because of her diabetes, difficult to control. I engaged our nurse navigator Lulu Negrete to speak with and investment counselor Dilia regarding pre-PET planning, dietary and exercise issues. PLAN: 1. Brain MRI with and without Gadolinium. 2. Return to clinic 1-2 days after PET scan. At that point final staging and treatment recommendations will be made. 3. Dilia already has radiation oncology appointment scheduled. Will combine the visit so they can occur one day. TIME STATEMENT: 65 minutes was spent face to face with the patient, more than 50% involved in counseling regarding the above outlined issues. Electronically Signed by Jana Quarles MD 09/17/2018 04:54 P DD: Jana Quarles MD 09/12/2018 04:14 P DT: marjan 09/17/2018 07:15 A CC: DO Alvaro Langley MD Vivian Keenan, MD
[2018-10-25 09:22] VITALS: BP 107/63
--- NOTE | 2018-10-27 13:47 | MEDONC ---
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 PD-L1 high, TMB low, BRAF positive, MSI stable, CD 8 (RNA - SEQ) 48% on NGS. Now status post whole-brain RT for multifocal brain metastases and on palliative mediastinal radiation for endobronchial and bulky mediastinal lymphadenopathy. INTERVAL HISTORY: This is my second meeting with Dilia after her initial 09/12/2018 visit when she provisionally carried a stage III B lung cancer diagnosis. Unfortunately, brain MRI revealed enhancing metastatic lesions in the left thalamus, left temporal lobe and bilateral cerebellum. She began whole-brain RT 09/23/2018 has completed it and begun on mediastinal radiation. PET/CT 10/09/2018 confirmed left adrenal metastasis, the dominant hypermetabolic right upper lobe mass showing extension to the anterior junction line, marked hypermetabolic right hilar adenopathy and right paratracheal adenopathy. In the last 10 days or so she has had two ER visits and one hospitalization for nausea, vomiting, dehydration and is feeling better. She did not fill a prescription for dexamethasone during her radiation apparently because of severe brittle diabetes. She is now skilled nursing through her mediastinal radiation and reports feeling okay. REVIEW OF SYSTEMS: Patient denies hemoptysis. Other than the episodes noted above, no chronic nausea or vomiting. No headache, no visual disturbance and no leg swelling, cramping, appetite is good. She has actually gained some weight. Remainder of 12-system review negative. PHYSICAL EXAMINATION: Weight 41 kg, temperature 97.7, blood pressure 107/63, heart rate 65, respiratory 18, O2 sat 100%. Patient is a very slender older woman, partial alopecia. No distress. Respiratory: Decreased breath sounds right upper lung vickers but no wheezes, rales or pretracheal stridor. Cardiac: S1, S2 regular rate and rhythm. No murmur nor gallop. Abdomen: Soft, nontender, nondistended, no hepatosplenomegaly or mass. Extremities: No edema. Lymph nodes: No submandibular, cervical, supraclavicular, or axillary adenopathy bilaterally. No new labs today. Most recent labs 10/19/2018: WBC 13.8, hemoglobin 11, hematocrit 3, hemoglobin 12, hematocrit 37, platelets 253, unremarkable liver functions, alk phos 175. 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 Some nausea, vomiting episodes, but overall taking in food and with improved weight. Brittle diabetes, complicating dexamethasone treatment. PLAN/RECOMMENDATIONS: Once Dilia has completed radiation will start her on systemic therapy with combination carboplatin/pemetrexed/pembrolizumab. At this point I will plan to see her back in 4 weeks. She will be close to finishing her radiation. At that point we can start stenting of chemotherapy planning. Electronically Signed by Jana Quarles MD 10/30/2018 04:50 P DD: Jana Quarles MD 10/25/2018 02:14 P DT: tom 10/27/2018 12:51 P CC: DO Alvaro Langley MD Vivian Keenan, MD
[~2018-11-25] VITALS: Ht 158.8 cm; Wt 39.5 kg
[~2018-11-25 14:00] MED LIST changes: +SIMV40TA2 PO; -SIMV40TA20 PO
[2018-11-25 14:20] LABS: HEMATOCRIT 36.7 % (36.0-47.0); HEMOGLOBIN 12.1 g/dl (12.0-15.5); LYMPH % 5.8 % (24.0-44.0); MEAN CORPUSCULAR HEMOGLOBIN 30.6 pg (27.0-33.0); MEAN CORPUSCULAR VOLUME 92.7 fl (80.0-96.0); NEUTROPHILS # 12.4 10^3/uL (1.8-7.7); NEUTROPHILS % 89.3 % (36.0-66.0); RED BLOOD COUNT 3.96 10^6/uL (4.00-5.40); WHITE BLOOD COUNT 13.9 10^3/uL (4.0-10.0)
[2018-11-25 14:23] VITALS: BP 100/66
[2018-11-25 14:45] LABS: ALBUMIN 3.5 GM/DL (3.5-5.2); BLOOD UREA NITROGEN 10 MG/DL (6-20); CARBON DIOXIDE LEVEL 32 MEQ/L (23-31); CHLORIDE LEVEL 90 MMOL/L (98-107); CREATININE FOR GFR 0.83 MG/DL (0.60-1.10); GLOMERULAR FILTRATION RATE > 60.0 (>45); GLUCOSE, FASTING 229 MG/DL (70-105); SODIUM LEVEL 129 MMOL/L (135-145); TOTAL PROTEIN 6.2 GM/DL (6.4-8.3)
[2018-11-25] MEDS ORDERED: PROC10TA4 PO (14:54)
[2018-11-25 15:17] LABS: APPEARANCE, URINE CLEAR (CLEAR); BACTERIA, URINE AUTO NEGATIVE (NEGATIVE); BILIRUBIN, URINE AUTO NEGATIVE (NEGATIVE); BLOOD, URINE BLOOD NEGATIVE (NEGATIVE); COLOR, URINE YELLOW (YELLOW); GLUCOSE, URINE (UA) AUTO 3+ mg/dL (NEGATIVE); KETONE, URINE AUTO NEGATIVE (NEGATIVE); LEUKOCYTE ESTERASE, URINE AUTO NEGATIVE (NEGATIVE); MUCUS, URINE SMALL (NEGATIVE); NITRITE, URINE AUTO NEGATIVE (NEGATIVE); PROTEIN, URINE AUTO NEGATIVE (NEGATIVE); RBC, URINE AUTO 3 /HPF (0-3); SPECIFIC GRAVITY URINE AUTO 1.027 (1.002-1.035); SQUAMOUS EPITHELIAL CELL UR AU 1 /HPF (0-6); WBC, URINE AUTO 6 /HPF (0-3)
--- NOTE | 2018-11-26 08:22 | MEDONC ---
MEDICAL ONCOLOGY FOLLOWUP: DATE OF SERVICE: 11/25/2018 DIAGNOSIS: 1. 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 Status post WBRT and currently completing thoracic radiation for bulky mediastinal lymphadenopathy. 2. Likely treatment related to fatigue. ECOG performance status currently 3. TREATMENT SUMMARY: 1. WBRT 3000 cGy 09/24/2018 - 10/07/2018. 2. Right lung radiation, 10/21/2018 - present; scheduled to complete 11/26/2018. 4000 cGy total. 3. Patient has not been on dexamethasone due to concern for hyperglycemia with brittle type 1 diabetes. 4. Chronic nausea and fatigue treatment versus disease related, inadequate relief of emesis with ondansetron. INTERVAL HISTORY: Dilia is here accompanied by her . She finishes radiation tomorrow. She complains of decreased appetite, decreased energy, generalized nausea. She uses ondansetron but used this for many years before she even started treatment for lung cancer. She asks for something else. I discussed prochlorperazine cautioned regarding extrapyramidal side effects and prescribe 10 mg up to q. 8 hours as needed for nausea in addition to ondansetron. She also has not had any bowel movements for she says 2 weeks. Is eating but not much. Denies abdominal distension. Acute abdominal pain. Denies diarrhea, blood in the stool. She has occasional cough without fever, productive of white or yellow sputum. REVIEW OF SYSTEMS: In addition to pertinent positives and negatives above, the patient denies shaking chills, fevers, sweats, chest pain, bloody stool rash, falls. Remainder of 12-system review negative. PHYSICAL EXAMINATION: Weight 39 kg, height 159 cm, BMI 16, temperature 97.7, blood pressure 100/56, heart rate 86, respiratory 20, O2 sat 99%. Patient is a thin older woman in no distress. Respiratory: Initial coarse breath sounds bilaterally with coarse crackles at the bases but these clear "post tussively with good breath movement. No wheezes, no basilar rales post tussively Cardiac: S1, S2 regular rate and rhythm. No murmur nor gallop. Abdomen: Soft, mildly tender without rebound tenderness. No palpable mass. No hepatosplenomegaly. The tenderness is in the right mid infrahepatic area. Extremities: No edema. Lymph nodes: No palpable submandibular, cervical, supraclavicular or axillary adenopathy bilaterally. LABS: WBC 13.9, neutrophilia 89%, hemoglobin 12, hematocrit 37, platelets 532, MCV 92. Electrolytes notable for sodium 129, potassium 3.8, chloride 90, bicarb 32, GFR greater than 60, glucose 229. Unremarkable liver function. IMPRESSION: 53-year-old woman with metastatic adenocarcinoma of lung presenting with bulky mediastinal lymphadenopathy, adrenal metastasis and stage-detected multifocal intracranial metastases status post whole-brain RT now on lung radiation for bulky disease. Declining performance status. Hyponatremia. New leukocytosis in the absence of dexamethasone. Persistent nausea on relieved with p.r.n. ondansetron. Coarse breath sounds with initially wet breath sounds which clear post tussively. No green sputum. No fever. Overall, I am concerned Dilia could have a postobstructive pneumonia or bronchitis, alternatively, a urine infection given her prolonged period of inactivity during radiation and risk for infection. She was recently admitted to the hospital for dehydration. She also likely has significant constipation, possibly worsened by use of ondansetron. PLAN: 1. UA, urine culture. 2. PA and lateral chest x-ray, rule out pneumonia. 3. I wrote down the names of Senokot and Colace recommending the use of these up to twice a day for constipation. 4. I will followup chest x-ray and urine culture by telephone prescribing antibiotics as indicated. 5. Return to clinic 2 weeks. At that point we will discuss systemic therapy provisionally with carboplatin/pemetrexed/pembrolizumab. 6. Dilia has had hyponatremia, now persistently for more than a month with worsening recently. This may be related to her chest and brain radiation, alternatively secondary to the tumor itself representing SIADH. I will contact her regarding demeclocycline to control SIADH symptoms. TIME STATEMENT: 30 minutes [id number] with the patient, more than 50% involving counseling, answering questions reviewing labs, discussing completion of radiation and next step. Electronically Signed by Jana Quarles MD 11/26/2018 05:52 P DD: Jana Quarles MD 11/25/2018 03:43 P DT: tom 11/26/2018 08:07 A CC:
== END 2018-11-25 15:23 | disposition home or self-care (01) ==
LOC: M ONCM 14:00
PROVIDERS: ATTEND Internal Medicine Medical Oncology
DX: C34.91 Malignant neoplasm of unspecified part of right bronchus or lung (principal); E10.9 Type 1 diabetes mellitus without complications; Z85.41 Personal history of malignant neoplasm of cervix uteri; Z88.0 Allergy status to penicillin; Z88.2 Allergy status to sulfonamides; Z79.899 Other long term (current) drug therapy
CPT/HCPCS: 36415; 80053; 81001; 85027; 87088; 87186; G0463

== ENCOUNTER 2018-11-26 14:58 | Outpatient (RCR) | payer MEDICARE, BC ==
--- NOTE | 2018-11-19 07:12 | RADONC ---
RADIATION ONCOLOGY PROGRESS NOTE DATE: 11/18/2018 Dilia Villarreal with a diagnosis of adenocarcinoma involving the right upper lobe is currently receiving local regional radiotherapy and she has achieved a dose thus far of 3400 cGy of her proposed 4000 cGy. After the completion of 4000 cGy, she will receive an additional 2600 cGy with reduced portals off the spinal cord. She appears to be somewhat better today. Her main problem was nausea. REVIEW OF SYSTEMS: She denies any significant nausea at the current time. She also denies significant odynophagia or dysphagia. Her energy level is significantly diminished and occasionally she becomes somewhat confused. The patient was treated for brain mets in September of this year. Otherwise, she denies coughing, sputum production, hemoptysis or significant pain. The remainder of the review of systems is unchanged. EXAMINATION FINDINGS: She is a cachectic female who exhibits some evidence of epilation. The skin within the irradiated volume generally looks fairly good with no overt desquamation. There is no palpable peripheral lymphadenopathy. Lungs are distant bilaterally. The remainder of the physical examination is unchanged. IMPRESSION: Tolerating therapy reasonably well. PLAN: Treatments to continue. MTDD
--- NOTE | 2018-11-26 08:39 | RADONC ---
RADIATION ONCOLOGY PROGRESS NOTE DATE: 11/25/2018 CHART NUMBER: [id number] Ms. Villarreal is presently at a dose of 3800 cGy to her right lung and is tolerating treatments quite well at this point. She reports that her weight has gone up and she is less dizzy. PHYSICAL EXAMINATION: On physical exam her skin is in good condition with no evidence of moist or dry desquamation. The remainder of her physical exam remains largely unchanged. Ms. Villarreal is tolerating treatments quite well and radiation will continue as scheduled.
[~2018-11-26 14:58] MED LIST changes: +PROC10TA4 PO; -SIMV40TA2 PO; +SIMV40TA20 PO
[2018-11-27] MEDS ORDERED: DEME150T2 PO (11:23)
--- NOTE | 2018-12-03 10:25 | RADONC ---
RADIATION ONCOLOGY PROGRESS NOTE DATE: 12/02/2018 CHART NUMBER: [id number] Ms. Villarreal is thus far at a dose of 4000 cGy to her right lung and was last treated on 11/26/2018. The patient has cancelled for the last 4 days or so. As of the previous time she was able to swallow well and having no significant difficulties when I saw her. The patient is scheduled to come in tomorrow, and we will reevaluate her at that time.
--- NOTE | 2018-12-11 08:46 | RADONC ---
RADIATION ONCOLOGY PROGRESS NOTE DATE: 12/09/2018 CHART NUMBER: [id number] PROGRESS NOTE: Ms. Villarreal is thus far at a dose of 4000 cGy to her right lung and was last treated on 11/26/2018. Once again, the patient's called in and said the patient was not up to coming in and did not want treatment today. This is almost now 2 weeks off treatment. Although, I am concerned about local control in reality the patient already has metastatic disease and was treated for brain metastasis. In light of this, the goal is purely palliative in nature. Since we are dealing with quality of life treatment only at this point, I hesitate to push this unfortunate patient much harder insisting that she come in when she is feeling so poorly. We will continue to follow her and if this continues much longer we may wish to discontinue therapy at this time and just put her on palliative care or even hospice.
[2018-12-11] MEDS ORDERED: ADV250INH INH (20:58)
[2018-12-11] MEDS ORDERED: HYOS0.1259 PO (20:59)
[2018-12-11] MEDS ORDERED: SYST1SOL4 OP (21:00)
[2018-12-12] MEDS ORDERED: ONDA-196 PO (01:43)
[2018-12-12] MEDS ORDERED: SYST1SOL4 OU (01:43)
[2018-12-12] MEDS ORDERED: HYOS1TAB PO (01:43)
[2018-12-12] MEDS ORDERED: ADV250INH INH (01:43)
[2018-12-12] MEDS ORDERED: CALTTAB6 PO (01:43)
[2018-12-12] MEDS ORDERED: VITMTA PO (01:43)
--- NOTE | 2018-12-13 14:00 | RADONC ---
RADIATION ONCOLOGY TREATMENT SUMMARY DATE: 12/11/2018 CHART NUMBER: [id number] DIAGNOSIS: Adenocarcinoma of the right upper lobe. STAGE: IV B, [id number]. ECOG PERFORMANCE STATUS: 4 TREATMENT SUMMARY: Ms. 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 We treated the brain for a dose of 3000 cGy delivered in 10 fractions of 300 cGy each over 13 elapsed days of 09/24/2018 through 10/07/2018. The patient's whole brain was treated on a linear accelerator utilizing a 6 MV photon beam via parallel opposed lateral vickers. Following completion of the brain radiation, we began radiation to the right lung and treated the right lung to a dose of 4000 cGy delivered in 20 fractions of 200 centigrade each over 36 elapsed days from 10/21/2018 through 11/26/2018. The patient's right lung and mediastinum were treated on the linear accelerator utilizing a combination of 10 X and 15 X photons and 3-D conformal technique. We had planned on delivering additional radiation to the lung in order to bring it to a sufficient dose to achieve local control. Unfortunately, the patient's condition has continued to deteriorate. For the past 2 weeks, her has called in every day saying she was too weak to come in for treatment. We requested that she either come in to see us for evaluation or come to the emergency room, but unfortunately this did not occur. She continued to stay home saying that she was too weak. I called up the house again today and spoke with her to find out whether or not she wish to stop radiation or at least come in to see us or her medical oncologist for evaluation. He reported that she is now in the hospital having fallen down and hit her head pretty hard on the cement. She is now admitted in our institution and we will be able to further see what is going on. I did have a lengthy discussion with the however on the telephone. I made clear to him that this was metastatic disease at time of consultation, and therefore, not curative. Indeed our role is purely palliation, and at this time, she is having no lung symptoms and there does not appear to be anything to palliate. Indeed, I do not believe radiation to the lung at this point will extend her life and I think hospice would be wisest consideration. Once again. we will see the patient and may adjust our opinions based on our future evaluations. However, in this noncurative case of metastatic lung cancer in an extremely frail and fragile patient palliative care and hospice care may be the most reasonable choice. I am therefore removing her from our radiation schedule at this time. We will set up a followup in our office in 4 weeks' time. cc: DO Jana Langley MD
== END 2018-12-18 ==
LOC: M ONCR 14:58
PROVIDERS: ATTEND Radiology Radiation Oncology
DX: C34.91 Malignant neoplasm of unspecified part of right bronchus or lung (principal)

== ENCOUNTER 2018-12-11 20:35 | Inpatient (IN) | payer MEDICARE, BC ==
[~2018-12-11] VITALS: Ht 162.6 cm; Wt 44.5 kg
[~2018-12-11 20:35] MED LIST changes: +DEME150T2 PO; +SIMV40TA2 PO; -SIMV40TA20 PO
[2018-12-11] MEDS ORDERED: ADV250INH INH (20:58)
[2018-12-11] MEDS ORDERED: HYOS0.1259 PO (20:59)
[2018-12-11] MEDS ORDERED: SYST1SOL4 OP (21:00)
[2018-12-11 21:19] LABS: BASO # 0.1 10^3/uL (0.0-0.2); BASO % 0.7 % (0.0-1.0); EOS % 0.2 % (0.0-3.0); HEMATOCRIT 38.8 % (36.0-47.0); HEMOGLOBIN 12.8 g/dl (12.0-15.5); LYMPH # 0.4 10^3/uL (1.5-4.5); LYMPH % 4.8 % (24.0-44.0); MEAN CORPUSCULAR HEMOGLOBIN 29.4 pg (27.0-33.0); MEAN CORPUSCULAR VOLUME 89.2 fl (80.0-96.0); MONO # 0.7 10^3/uL (0.0-0.8); MONO % 7.5 % (0.0-5.0); NEUTROPHILS # 7.9 10^3/uL (1.8-7.7); NEUTROPHILS % 85.9 % (36.0-66.0); PLATELET COUNT, AUTOMATED 483 10^3/uL (150-450); RED BLOOD COUNT 4.35 10^6/uL (4.00-5.40); WHITE BLOOD COUNT 9.2 10^3/uL (4.0-10.0)
[2018-12-11] MEDS ORDERED: NS 500 ML IV ONE ×2 (21:30→23:00)
--- NOTE | 2018-12-11 21:40 | REPVR ---
EXAM: CT Head Without Contrast EXAM DATE/TIME: 12/11/2018 9:01 PM CLINICAL HISTORY: 63 years old, female; Syncope and collapse TECHNIQUE: Imaging protocol: Computed tomography images of the head without contrast. Radiation optimization: All CT scans at this facility use at least one of these dose optimization techniques: automated exposure control; mA and/or kV adjustment per patient size (includes targeted exams where dose is matched to clinical indication); or iterative reconstruction. COMPARISON: CT Head without contrast 10/31/2018 6:45 PM FINDINGS: Brain: There is mild patchy low attenuation of deep white matter. There is slight prominence of the peripheral sulci. Ventricles: There is slight prominence of the central ventricular system. Bones/joints: Unremarkable. No acute fracture. Sinuses: Sphenoid and ethmoid sinus mucosal thickening. Mastoid air cells: Visualized mastoid air cells are well aerated. No mastoid effusion. Soft tissues: Unremarkable. IMPRESSION: 1. There has been little change from 10/31/2018. No acute interval intracranial process is identified. 2. Mild chronic ischemic white matter change and minimal atrophy. 3. Sphenoid and ethmoid sinus disease. Electronically signed by: Sudhakar Tavarez On 12/11/2018 21:40:26 PM
[2018-12-11 21:51] LABS: BLOOD UREA NITROGEN 24 MG/DL (7-18); CALCIUM LEVEL 9.2 MG/DL (8.8-10.2); CARBON DIOXIDE LEVEL 29 MEQ/L (21-32); CHLORIDE LEVEL 90 MEQ/L (98-107); CK-MB VALUE MASS 1.1 NG/ML (<3.6); CPK CREATINE PHOSPHOKINASE 46 U/L (26-192); CREATININE FOR GFR 0.78 MG/DL (0.55-1.30); GLOMERULAR FILTRATION RATE > 60.0 (>45); GLUCOSE, FASTING 280 MG/DL (70-100); MB/CK RELATIVE INDEX 2.39 (< OR =4); POTASSIUM SERUM 4.7 MEQ/L (3.5-5.1); SODIUM LEVEL 129 MEQ/L (136-145); TROPONIN I < 0.02 NG/ML (< 0.10)
--- NOTE | 2018-12-11 22:57 | REPVR ---
EXAM: CT Cervical Spine Without Contrast EXAM DATE/TIME: 12/11/2018 10:32 PM CLINICAL HISTORY: 63 years old, female; Injury or trauma; Fall; Initial encounter; Blunt trauma TECHNIQUE: Imaging protocol: Computed tomography images of the cervical spine without contrast. Coronal and sagittal reformatted images were created and reviewed. Radiation optimization: All CT scans at this facility use at least one of these dose optimization techniques: automated exposure control; mA and/or kV adjustment per patient size (includes targeted exams where dose is matched to clinical indication); or iterative reconstruction. COMPARISON: PT PET/CT Skull/mid thigh 10/09/2018 10:36 AM FINDINGS: Vertebrae: Degenerative/arthritic changes of the right apophyseal joint at C4-C5. C2-C3: Slight anterior listhesis with degenerative changes, greatest in the left apophyseal joint with no spinal or foraminal stenosis. C3-C4: Slight anterolisthesis with no spinal or foraminal stenosis. C4-C5: Slight interspace narrowing with mild anterior listhesis and degenerative/arthritic change of the right apophyseal joint and degenerative changes of the left with no spinal or foraminal stenosis. C5-C6: Moderate interspace narrowing with mild retrolisthesis and bilateral degenerative changes. There is no spinal stenosis. There is mild right neural foraminal stenosis. C6-C7: Slight interspace narrowing with slight retrolisthesis with early degenerative changes and mild left neural foraminal stenosis. C7-T1: No spinal or foraminal stenosis. Soft tissues: Unremarkable. Lungs: Mild right apical scar and stranding. IMPRESSION: 1. Multilevel degenerative or arthritic changes with no spinal stenosis. There is mild left neural foraminal stenosis at C5-C6 and C6-C7. Otherwise, no foraminal stenosis. 2. No acute fracture or subluxation. Electronically signed by: Sudhakar Tavarez On 12/11/2018 22:57:26 PM
[2018-12-12] MEDS ORDERED: MOM 30ML SUSPENSION UDC PO PRN (01:00)
[2018-12-12] MEDS ORDERED: MAALOX 30 ML SUSP *UDC PO PRN (01:00)
--- NOTE | 2018-12-12 01:14 | HPEPDOC ---
General Date of Admission 12/12/18 Date of Service: Dec 12, 2018 Attending Physician: TREVOR STYLES MD Chief Complaint The patient is a 63-year-old female admitted with a reason for visit of Head Inj ury. Source: Patient Exam Limitations: No limitations Timing/Duration: Unsure Severity: Mild Associated Symptoms: Other History of Present Illness 63 years old white female with past medical history of adenocarcinoma of lung with extensive metastasis had an episode of syncope following by follow up striking her head. Patient is not on any blood thinners. Patient was found to be orthostatic in the ED and we will called in to admit patient for syncope secondary to orthostasis and possible obtaine a hospice care consult in a.m. due to patient's poor prognosis Home Medications Scheduled Ascorbic Acid (Vitamin C) 500 Mg Tab, 500 MG PO BID, (Reported) Aspirin (Aspirin EC) 81 Mg Tab, 81 MG PO DAILY, (Reported) Calcium Citrate/Vitamin D2 (Carlitos-Citrate Plus Vitamin D Tab) 1 Each Tablet, 1 TAB PO BID, (Reported) Carvedilol (Carvedilol) 3.125 Mg Tab, 3.125 MG PO BID, (Reported) Demeclocycline Hcl (Demeclocycline HCl) 150 Mg Tablet, 1 TAB PO BID Dicyclomine HCl (Dicyclomine HCl) 20 Mg Tab, 20 MG PO DAILY, (Reported) Escitalopram Oxalate (Escitalopram Oxalate) 20 Mg Tab, 20 MG PO DAILY, (Reported) Furosemide (Furosemide) 20 Mg Tablet, 20 MG PO DAILY, (Reported) Gabapentin (Gabapentin) 300 Mg Cap, 300 MG PO TID, (Reported) Insulin Degludec (Tresiba Flextouch U-100) 100 Unit/Ml Inj, 10 UNIT SC DAILY, (Reported) Insulin Human Lispro (Novolog) 100 U/Ml Inj, 1 DOSE SC TID, (Reported) PER SLIDING SCALE Lisinopril (Lisinopril) 2.5 Mg Tab, 2.5 MG PO QHS, (Reported) Montelukast Sodium (Montelukast Sodium) 10 Mg Tab, 10 MG PO QHS, (Reported) Multivit-Min/Folic Acid/Vit K1 (Multi For Her 50 Plus Softgel) 1 Each Capsule, 1 EACH PO DAILY, (Reported) Pantoprazole Sodium (Pantoprazole Sodium) 40 Mg Tab, 40 MG PO QPM, (Reported) Propylene Glycol/Peg 400/Pf (Systane 0.3-0.4% Eye Drop) 1 Each Droperette, 1 DROP OP QID, (Reported) Salmeterol/Fluticasone (Advair 250-50 Diskus) 1 Each Blst.w.dev, 1 PUFF INH BID, (Reported) Simvastatin (Simvastatin) 40 Mg Tab, 40 MG PO QHS, (Reported) Spironolactone (Spironolactone) 25 Mg Tablet, 25 MG PO DAILY, (Reported) Vitamin E (Vitamin E) 400 Unit Cap, 400 UNIT PO DAILY, (Reported) Scheduled PRN Metoclopramide HCl (Reglan) 10 Mg Tablet, 10 MG PO Q6H PRN for NAUSEA Ondansetron HCl (Zofran) 4 Mg Tab, 4 MG PO TID PRN for NAUSEA OR VOMITING, (Reported) Prochlorperazine Maleate (Prochlorperazine Maleate) 10 Mg Tablet, 10 MG PO Q8H PRN for NAUSEA OR VOMITING Miscellaneous Medications Hyoscyamine Sulfate (Hyoscyamine Sulfate) 125 Mcg/5 Ml Elixir, 0.125 MG PO, (Reported) Allergies Coded Allergies: Penicillins (Verified Allergy, Unknown, 12/11/18) Sulfa (Sulfonamide Antibiotics) (Verified Allergy, Unknown, 12/11/18) Past Medical History Medical History Adenocarcinoma of lung with distant metastases, status post brain radiation therapy, history of hypertensionb lipidemia cardiac disorders, history of ON carcinoma with complete hysterectomy, 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, history of CA lung with brain metastases Surgical History As above Family History Significant Family History: No pertinent family hx Social History * Smoker: Denies Alcohol: Denies Drugs: denies A-FIB/CHADSVASC A-FIB History Current/History of A-Fib/PAF?: No Review of Systems Constitutional: Denies: Chills, Fever, Malaise, Night Sweats, Weakness, Fatigue, Weight Loss, Lethargy, Other Eyes: Denies: Pain, Vision change, Conjunctivae inflammation, Eyelid inflammation, Redness, Other ENT: Denies: Head Aches, Ear Pain, Dysphagia, Sinus Congestion, Post Nasal Drip, Sore Throat, Epistaxis, Other Symptoms Skin: Denies: Rash, Lesions, Jaundice, Bruising, Itching, Dry, Breakdown, Nail Changes, Other Pulmonary: Denies: Dyspnea, Cough, Pleuritic Chest Pain, Other Symptoms Cardiovascular: Denies: Chest Pain, Palpitations, Orthopnea, Paroxysmal Noc. Dyspnea, Edema, Lt Headedness, Other Symptoms Gastrointestinal: Denies: Nausea, Vomiting, Abdominal Pain, Diarrhea, Constipation, Melena, Hematochezia, Other Symptoms Genitourinary: Denies: Dysuria, Frequency, Incontinence, Hematuria, Retention, Other Symptoms Hematologic: Denies: Bruising, Bleeding Excessively, Petecchia, Purpura, Enlarged Lymph Nodes, Other Hematologic Endocrine: Denies: Polydipsia, Polyphagia, Polyuria, Heat Intolerance, Cold Intolerance, Other Endocrine Sx Musculoskeletal: Denies: Neck Pain, Back Pain, Shoulder Pain, Arm Pain, Hand Pain, Leg Pain, Foot Pain, Joint Pain, Muscle Pain, Spasms, Other Symptoms Psych: Denies: Mood Normal, Anxiety, Depression, Memory Issues, Thoughts of Self Harm, Anger, Thoughts of Harming Other, Other Psych Physical Examination General Exam: Positive: Alert, Cooperative Eye Exam: Positive: PERRLA, Conjunctiva & lids normal ENT Exam: Positive: Atraumatic Neck Exam: Positive: Supple Chest Exam: Positive: Clear to auscultation, Normal air movement Heart Exam: Positive: Rate Normal, Normal S1, Normal S2 Abdomen Exam: Positive: Normal bowel sounds, Soft Extremity Exam: Positive: Normal pulses Skin Exam: Positive: Nl turgor and temperature Neuro Exam: Positive: Strength at 5/5 X4 ext, Sensation Intact Psych Exam: Positive: Oriented x 3 Vital Signs Vital Signs Date Time Temp Pulse Resp B/P (MAP) Pulse Ox O2 Delivery O2 Flow Rate FiO2 12/12/18 00:16 70 122/63 (82) 73 102/57 (72) 12/12/18 00:00 18 100 Room Air 12/11/18 20:51 98.2 Laboratory Data Labs 24H Laboratory Tests 2 12/11/18 20:56: Immature Granulocyte % (Auto) 0.9, White Blood Count 9.2, Red Blood Count 4.35, Hemoglobin 12.8, Hematocrit 38.8, Mean Corpuscular Volume 89.2, Mean Corpuscular Hemoglobin 29.4, Mean Corpuscular Hemoglobin Concent 33.0, Red Cell Distribution Width 14.3, Platelet Count 483H, Neutrophils (%) (Auto) 85.9H, Lymphocytes (%) (Auto) 4.8L, Monocytes (%) (Auto) 7.5H, Eosinophils (%) (Auto) 0.2, Basophils (%) (Auto) 0.7, Neutrophils # (Auto) 7.9H, Lymphocytes # (Auto) 0.4L, Monocytes # (Auto) 0.7, Eosinophils # (Auto) 0.0, Basophils # (Auto) 0.1, Nucleated Red Blood Cells % (auto) 0.0, Anion Gap 10, Glomerular Filtration Rate > 60.0, Blood Urea Nitrogen 24H, Creatinine 0.78, Sodium Level 129L, Potassium Level 4.7, Ch loride Level 90L, Carbon Dioxide Level 29, Calcium Level 9.2, Total Creatine Kinase 46, Creatine Kinase MB 1.1, Creatine Kinase MB Relative Index 2.39, Troponin I < 0.02, Thyroid Stimulating Hormone (TSH) 2.150 12/11/18 21:12: Bedside Glucose (Misc Panel) 289H CBC/BMP Laboratory Tests 12/11/18 20:56 Red Blood Count 4.35, Mean Corpuscular Volume 89.2, Mean Corpuscular Hemoglobin 29.4, Mean Corpuscular Hemoglobin Concent 33.0, Red Cell Distribution Width 1 4.3, Neutrophils (%) (Auto) 85.9 H, Lymphocytes (%) (Auto) 4.8 L, Monocytes (%) (Auto) 7.5 H, Eosinophils (%) (Auto) 0.2, Basophils (%) (Auto) 0.7, Neutrophils # (Auto) 7.9 H, Lymphocytes # (Auto) 0.4 L, Monocytes # (Auto) 0.7, Eosinophils # (Auto) 0.0, Basophils # (Auto) 0.1, Calcium Level 9.2, Total Creatine Kinase 46 Problems (1) Syncope due to orthostatic hypotension Status: Acute Problem Text: Most likely syncope due to orthostatic hypotension Hold all by mouth antihypertensive meds including Coreg, lisinopril IV fluid normal saline at 70 mL per hour Physical therapy evaluation in a.m. Monitoring Further cardiac or neuro workup is indicated at this time Patient is a poor prognosis in the hospice consult has been requested Continue all other home meds Supportive care Fingerstick blood sugar every before meals and at bedtime Carbohydrate consistent diet Activity as per physical therapy Plan / VTE VTE Prophylaxis Ordered?: Yes TREVOR STYLES MD Dec 12, 2018 01:14
[2018-12-12] MEDS ORDERED: GLUCAGON FOR INJ 1 MG VIAL (J1610) SC PRN (01:15)
[2018-12-12] MEDS ORDERED: GLUCOSE 4 GM CHEW TABLET PO PRN (01:15)
[2018-12-12] MEDS ORDERED: DEXTROSE 50% 50 ML SYRINGE IV PRN (01:15)
[2018-12-12] MEDS ORDERED: ADV250INH INH (01:43)
[2018-12-12] MEDS ORDERED: VITMTA PO (01:43)
[2018-12-12] MEDS ORDERED: CALTTAB6 PO (01:43)
[2018-12-12] MEDS ORDERED: SYST1SOL4 OU (01:43)
[2018-12-12] MEDS ORDERED: HYOS1TAB PO (01:43)
[2018-12-12] MEDS ORDERED: ONDA-196 PO (01:43)
[2018-12-12 02:40] VITALS: BP 144/63
[2018-12-12] MEDS: HumaLOG INSULIN (NovoLOG) PER UNIT SC SCH ×5 (03:09→20:39)
[2018-12-12] MEDS: NS 1,000 ML IV SCH ×2 (03:10→16:42)
[2018-12-12 04:00] VITALS: BP 131/63
[2018-12-12 08:00] VITALS: BP 118/71
[2018-12-12] MEDS: DOCUSATE SODIUM 100 MG CAP PO SCH ×2 (08:09→20:37)
[2018-12-12 12:00] VITALS: BP 132/65
--- NOTE | 2018-12-12 14:23 | IPNPDOC ---
Subjective Date Seen The patient was seen on 12/12/18. Subjective Chief Complaint/HPI Patient seen and examined at the bedside. No acute overnight events noted. Objective Physical Examination General Exam: Positive: Alert, Cooperative, No Acute Distress, Other (cachectic appearing) Eye Exam: Positive: PERRLA, Conjunctiva & lids normal ENT Exam: Positive: Atraumatic, Other ENT (bitemporal wasting) Chest Exam: Positive: Clear to auscultation, Normal air movement Heart Exam: Positive: Rate Normal, Normal S1, Normal S2 Abdomen Exam: Positive: Normal bowel sounds, Soft; Negative: Tenderness Extremity Exam: Negative: Tenderness, Swelling Skin Exam: Positive: Nl turgor and temperature Psych Exam: Positive: Oriented x 3 Assessment /Plan Plan/VTE VTE Prophylaxis Ordered?: Yes Plan Failure to thrive, Orthostatic Hypotension 2/2 Dehydration, Underlying Malignancy Improved with IV fluid hydration Physical therapy ordered for functional optimization We will cont to monitor the patient IDDM Insulin sliding scale ordered 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 Chao Follows with Dr. Quarles of oncology COPD, stable Nebs PRN Anxiety/depression Continue Lexapro Dyslipidemia Continue statin Hypertension, stable Continue meds as ordered Heart failure with preserved ejection fraction Compensated Continue Lasix, spironolactone as ordered DVT ppx: Lovenox SC Poor Shelter Prognosis discussed at length with the patient at bedside. She dates that she would like to speak to her before signing a MOLST form. She has agreed to speak with hospice, who will be in later to see her. VS, I&O, 24H, Jeysonbone Vital Signs/I&O Vital Signs Date Time Temp Pulse Resp B/P (MAP) Pulse Ox O2 Delivery O2 Flow Rate FiO2 12/12/18 12:00 98.1 74 18 132/65 (87) 98 12/12/18 02:30 Room Air I&O- Last 24 Hours up to 6 AM 12/12/18 05:59 Intake Total 1500 ml Output Total 200 ml Balance 1300 ml Laboratory Data 24H LABS Laboratory Tests 2 12/11/18 20:56: Immature Granulocyte % (Auto) 0.9, White Blood Count 9.2, Red Blood Count 4.35, Hemoglobin 12.8, Hematocrit 38.8, Mean Corpuscular Volume 89.2, Mean Corpuscular Hemoglobin 29.4, Mean Corpuscular Hemoglobin Concent 33.0, Red Cell Distribution Width 14.3, Platelet Count 483H, Neutrophils (%) (Auto) 85.9H, Lymphocytes (%) (Auto) 4.8L, Monocytes (%) (Auto) 7.5H, Eosinophils (%) (Auto) 0.2, Basophils (%) (Auto) 0.7, Neutrophils # (Auto) 7.9H, Lymphocytes # (Auto) 0.4L, Monocytes # (Auto) 0.7, Eosinophils # (Auto) 0.0, Basophils # (Auto) 0.1, Nucleated Red Blood Cells % (auto) 0.0, Anion Gap 10, Glomerular Filtration Rate > 60.0, Blood Urea Nitrogen 24H, Creatinine 0.78, Sodium Level 129L, Potassium Level 4.7, Chloride Level 90L, Carbon Dioxide Level 29, Calcium Level 9.2, Total Creatine Kinase 46, Creatine Kinase MB 1.1, Creatine Kinase MB Relative Index 2.39, Troponin I < 0.02, Thyroid Stimulating Hormone (TSH) 2.150 12/11/18 21:12: Bedside Glucose (Misc Panel) 289H 12/12/18 07:04: Bedside Glucose (Misc Panel) 264H 12/12/18 12:02: Bedside Glucose (Misc Panel) 169H CBC/BMP Laboratory Tests 12/11/18 20:56 Red Blood Count 4.35, Mean Corpuscular Volume 89.2, Mean Corpuscular Hemoglobin 29.4, Mean Corpuscular Hemoglobin Concent 33.0, Red Cell Distribution Width 14.3, Neutrophils (%) (Auto) 85.9 H, Lymphocytes (%) (Auto) 4.8 L, Monocytes (%) (Auto) 7.5 H, Eosinophils (%) (Auto) 0.2, Basophils (%) (Auto) 0.7, Neutrophils # (Auto) 7.9 H, Lymphocytes # (Auto) 0.4 L, Monocytes # (Auto) 0.7, Eosinophils # (Auto) 0.0, Basophils # (Auto) 0.1, Calcium Level 9.2, Total Creatine Kinase 46 PIA CHING MD Dec 12, 2018 14:23
[2018-12-12 16:00] VITALS: BP 122/64
[2018-12-12] MEDS ORDERED: GABAPENTIN 300 MG CAP PO SCH (16:00)
[2018-12-12] MEDS ORDERED: IBUPROFEN 600 MG TAB PO ONE (16:30)
[2018-12-12] MEDS: MULTIVITAMINS/MINERALS THERAP 1 TAB PO SCH (16:34)
[2018-12-12] MEDS: PANTOPRAZOLE 40MG TAB (PROTONIX) PO SCH (16:35)
[2018-12-12] MEDS: VITAMIN E 400 INTERNATIONAL UNITS CAP PO SCH (16:35)
[2018-12-12] MEDS: ASPIRIN 81 MG ENTERIC TAB PO SCH (16:35)
[2018-12-12] MEDS: ESCITALOPRAM OXALATE 10 MG TAB (LEXAPRO) PO SCH (16:35)
[2018-12-12] MEDS: ENOXAPARIN 30 MG/0.3 ML SYR (J1650) SC SCH (16:36)
[2018-12-12 19:00] VITALS: BP 128/66
[2018-12-12] MEDS: ADVAIR HFA 115/21MCG INHALER INH SCH (20:09)
[2018-12-12] MEDS: SIMVASTATIN 40 MG TAB PO SCH (20:36)
[2018-12-12] MEDS: ASCORBIC ACID 500 MG TAB PO SCH (20:36)
[2018-12-12] MEDS: MONTELUKAST 10 MG TAB PO SCH (20:36)
[2018-12-12] MEDS: GABAPENTIN 300 MG CAP PO SCH (20:36)
--- NOTE | 2018-12-12 20:40 | ECGEPIP ---
[facility] - ED Test Date: 2018-12-11 Pat Name: VIKA LAWRENCE Department: Room: [place] [address] Gender: Female Health Commissioner: MARIAELENA : 1955 Requested By: BERRY Rodriguez Order Number: [id number] Reading MD: Deondre Ruiz Measurements Intervals [place] Rate: 73 P: 83 AL: 172 QRS: 81 QRSD: 74 T: 87 QT: 399 QTc: 440 Interpretive Statements SINUS RHYTHM POSSIBLE RIGHT ATRIAL ENLARGEMENT POOR R WAVE PROGRESSION SIMILAR TO 10/15/18 Electronically Signed on 12-12-2018 20:40:41 EDT by Deondre Ruiz
[2018-12-13] VITALS (7 sets, daily range): BP systolic 101–130; BP diastolic 63–72
[2018-12-13 05:33] LABS: HEMOGLOBIN 11.9 g/dl (12.0-15.5); MEAN CORPUSCULAR HEMOGLOBIN 29.9 pg (27.0-33.0); MEAN CORPUSCULAR HGB CONC 33.1 g/dl (32.0-36.5); MEAN CORPUSCULAR VOLUME 90.5 fl (80.0-96.0); PLATELET COUNT, AUTOMATED 407 10^3/uL (150-450); RED BLOOD COUNT 3.98 10^6/uL (4.00-5.40); WHITE BLOOD COUNT 8.7 10^3/uL (4.0-10.0)
[2018-12-13] MEDS: NS 1,000 ML IV SCH ×2 (05:46→20:54)
[2018-12-13 05:48] LABS: ALBUMIN 1.9 GM/DL (3.2-5.2); ALT/SGPT 9 U/L (12-78); BILIRUBIN,TOTAL 0.3 MG/DL (0.2-1.0); BLOOD UREA NITROGEN 14 MG/DL (7-18); CARBON DIOXIDE LEVEL 26 MEQ/L (21-32); CHLORIDE LEVEL 101 MEQ/L (98-107); CREATININE FOR GFR 0.62 MG/DL (0.55-1.30); GLOMERULAR FILTRATION RATE > 60.0 (>45); GLUCOSE, FASTING 254 MG/DL (70-100); POTASSIUM SERUM 3.8 MEQ/L (3.5-5.1); SODIUM LEVEL 133 MEQ/L (136-145); TOTAL PROTEIN 5.6 GM/DL (6.4-8.2)
[2018-12-13] MEDS: ADVAIR HFA 115/21MCG INHALER INH SCH ×2 (07:31→19:34)
[2018-12-13] MEDS: ENOXAPARIN 30 MG/0.3 ML SYR (J1650) SC SCH (08:20)
[2018-12-13] MEDS: ASPIRIN 81 MG ENTERIC TAB PO SCH (08:20)
[2018-12-13] MEDS: DOCUSATE SODIUM 100 MG CAP PO SCH ×3 (08:20→20:54)
[2018-12-13] MEDS: HumaLOG INSULIN (NovoLOG) PER UNIT SC SCH ×4 (08:20→22:42)
[2018-12-13] MEDS: ASCORBIC ACID 500 MG TAB PO SCH ×3 (08:21→20:54)
[2018-12-13] MEDS: MULTIVITAMINS/MINERALS THERAP 1 TAB PO SCH ×2 (08:21→09:00)
[2018-12-13] MEDS: VITAMIN E 400 INTERNATIONAL UNITS CAP PO SCH ×2 (08:21→09:00)
[2018-12-13] MEDS: GABAPENTIN 300 MG CAP PO SCH ×2 (08:21→20:53)
[2018-12-13] MEDS: ESCITALOPRAM OXALATE 10 MG TAB (LEXAPRO) PO SCH (08:21)
--- NOTE | 2018-12-13 11:27 | IPNPDOC ---
Subjective Date Seen The patient was seen on 12/13/18. Subjective Chief Complaint/HPI Patient seen and examined at the bedside. Reports that she is having some nausea and vomiting this morning. Denies any abdominal pain, or diarrhea. States that this is typical nausea and vomiting that she has had over the last several weeks following radiation treatments and in general. She notes that her appetite has also been decreased. Objective Physical Examination General Exam: Positive: Alert, Cooperative, No Acute Distress, Other (cachectic appearing) Eye Exam: Positive: PERRLA, Conjunctiva & lids normal ENT Exam: Positive: Atraumatic, Other ENT (bitemporal wasting) Chest Exam: Positive: Diminished Heart Exam: Positive: Rate Normal, Normal S1, Normal S2 Abdomen Exam: Positive: Normal bowel sounds, Soft; Negative: Tenderness Extremity Exam: Negative: Tenderness, Swelling Skin Exam: Positive: Nl turgor and temperature Psych Exam: Positive: Oriented x 3 Assessment /Plan Plan/VTE VTE Prophylaxis Ordered?: Yes Plan Failure to thrive, Orthostatic Hypotension 2/2 Dehydration, Underlying Malignancy Improved with IV fluid hydration Physical therapy ordered for functional optimization We will cont to monitor the patient IDDM Insulin sliding scale ordered 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 Chao Follows with Dr. Quarles of oncology COPD, stable Nebs PRN Anxiety/depression Continue Lexapro Dyslipidemia Continue statin Hypertension, stable Continue meds as ordered Heart failure with preserved ejection fraction Compensated Continue Lasix, spironolactone as ordered DVT ppx: Lovenox SC Dispo--pending clinical improvement. VS, I&O, 24H, Fishbone Vital Signs/I&O Vital Signs Date Time Temp Pulse Resp B/P (MAP) Pulse Ox O2 Delivery O2 Flow Rate FiO2 12/13/18 08:00 97.9 81 18 101/66 (78) 98 12/12/18 02:30 Room Air I&O- Last 24 Hours up to 6 AM 12/13/18 06:00 Intake Total 1660 ml Output Total 750 ml Balance 910 ml Laboratory Data 24H LABS Laboratory Tests 2 12/12/18 12:02: Bedside Glucose (Misc Panel) 169H 12/12/18 16:40: Bedside Glucose (Misc Panel) 105 12/12/18 20:29: Bedside Glucose (Misc Panel) 157H 12/13/18 05:02: Nucleated Red Blood Cells % (auto) 0.0, Anion Gap 6L, Glomerular Filtration Rate > 60.0, Blood Urea Nitrogen 14, Creatinine 0.62, Sodium Level 133L, Potassium Level 3.8, Chloride Level 101, Carbon Dioxide Level 26, Calcium Level 8.0L, Aspartate Amino Transf (AST/SGOT) 12, Alanine Aminotransferase (ALT/SGPT) 9L, Alkaline Phosphatase 114, Total Bilirubin 0.3, Total Protein 5.6L, Albumin 1.9L, Magnesium Level 2.0, Albumin/Globulin Ratio 0.51L CBC/BMP Laboratory Tests 12/13/18 05:02 Red Blood Count 3.98 L, Mean Corpuscular Volume 90.5, Mean Corpuscular Hemoglobin 29.9, Mean Corpuscular Hemoglobin Concent 33.1, Red Cell Distribution Width 14.5, Calcium Level 8.0 L, Aspartate Amino Transf (AST/SGOT) 12, Alanine Aminotransferase (ALT/SGPT) 9 L, Alkaline Phosphatase 114, Total Bilirubin 0.3, Total Protein 5.6 L, Albumin 1.9 L PIA CHING MD Dec 13, 2018 11:27
[2018-12-13] MEDS: ONDANSETRON 4MG/2ML VIAL (J2405) IV PRN ×2 (12:19→17:35)
[2018-12-13] MEDS: PANTOPRAZOLE 40MG TAB (PROTONIX) PO SCH (17:35)
[2018-12-13] MEDS ORDERED: MECLIZINE 12.5 MG TAB PO ONE (20:45)
[2018-12-13] MEDS ORDERED: ONDANSETRON 4MG/2ML VIAL (J2405) IV ONE (20:45)
[2018-12-13] MEDS: SIMVASTATIN 40 MG TAB PO SCH (20:53)
[2018-12-13] MEDS: MONTELUKAST 10 MG TAB PO SCH (20:54)
[2018-12-14] MEDS: ONDANSETRON 4MG/2ML VIAL (J2405) IV PRN ×2 (00:47→06:10)
[2018-12-14 04:00] VITALS: BP 130/73
[2018-12-14 05:39] LABS: BLOOD UREA NITROGEN 12 MG/DL (7-18); CARBON DIOXIDE LEVEL 21 MEQ/L (21-32); CHLORIDE LEVEL 101 MEQ/L (98-107); GLOMERULAR FILTRATION RATE > 60.0 (>45); GLUCOSE, FASTING 259 MG/DL (70-100); POTASSIUM SERUM 3.9 MEQ/L (3.5-5.1); SODIUM LEVEL 133 MEQ/L (136-145)
[2018-12-14 08:00] VITALS: BP 144/79
[2018-12-14] MEDS: ADVAIR HFA 115/21MCG INHALER INH SCH ×2 (08:01→20:19)
[2018-12-14] MEDS: ENOXAPARIN 30 MG/0.3 ML SYR (J1650) SC SCH (08:49)
[2018-12-14] MEDS: GABAPENTIN 300 MG CAP PO SCH ×2 (08:50→21:13)
[2018-12-14] MEDS: VITAMIN E 400 INTERNATIONAL UNITS CAP PO SCH (08:50)
[2018-12-14] MEDS: HumaLOG INSULIN (NovoLOG) PER UNIT SC SCH ×4 (08:50→21:00)
[2018-12-14] MEDS: ESCITALOPRAM OXALATE 10 MG TAB (LEXAPRO) PO SCH (08:50)
[2018-12-14] MEDS: ASCORBIC ACID 500 MG TAB PO SCH ×2 (08:50→21:13)
[2018-12-14] MEDS: MULTIVITAMINS/MINERALS THERAP 1 TAB PO SCH (08:50)
[2018-12-14] MEDS: DOCUSATE SODIUM 100 MG CAP PO SCH ×2 (08:51→21:13)
[2018-12-14] MEDS: ASPIRIN 81 MG ENTERIC TAB PO SCH (08:51)
[2018-12-14] MEDS: ACETAMINOPHEN TAB 650MG DOSE (2X325MG) PO PRN ×3 (09:16→21:13)
[2018-12-14] MEDS: NS 1,000 ML IV SCH ×2 (09:17→21:43)
[2018-12-14 12:00] VITALS: BP 132/69
--- NOTE | 2018-12-14 12:38 | IPNPDOC ---
Subjective Date Seen The patient was seen on 12/14/18. Subjective Chief Complaint/HPI Patient seen and examined at the bedside. Remains nauseous with a decreased appetite but denies any vomiting, abdominal pain, or diarrhea. Objective Physical Examination General Exam: Positive: Alert, Cooperative, No Acute Distress, Other (cachectic appearing) Eye Exam: Positive: PERRLA, Conjunctiva & lids normal ENT Exam: Positive: Atraumatic, Other ENT (bitemporal wasting) Chest Exam: Positive: Diminished Heart Exam: Positive: Rate Normal, Normal S1, Normal S2 Abdomen Exam: Positive: Normal bowel sounds, Soft; Negative: Tenderness Extremity Exam: Negative: Tenderness, Swelling Skin Exam: Positive: Nl turgor and temperature Psych Exam: Positive: Oriented x 3 Assessment /Plan Plan/VTE VTE Prophylaxis Ordered?: Yes Plan Failure to thrive, Orthostatic Hypotension 2/2 Dehydration, Underlying Malignancy Improved with IV fluid hydration Physical therapy ordered for functional optimization We will cont to monitor the patient IDDM Insulin sliding scale ordered 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 Chao Follows with Dr. Quarles of oncology COPD, stable Nebs PRN Anxiety/depression Continue Lexapro Dyslipidemia Continue statin Hypertension, stable Continue meds as ordered Heart failure with preserved ejection fraction Compensated Lasix, spironolactone on hold DVT ppx: Lovenox SC Poor long-term prognosis-I had an extensive discussion with the patient at the bedside this morning regarding her poor long-term prognosis, cachectic condition, and deteriorating clinical status. The patient remains reluctant to consider hospice/palliative care at this time. I have scheduled a family meeting for later this afternoon. Dispo--pending clinical improvement. VS, I&O, 24H, Fishbone Vital Signs/I&O Vital Signs Date Time Temp Pulse Resp B/P (MAP) Pulse Ox O2 Delivery O2 Flow Rate FiO2 12/14/18 08:00 98.8 90 18 144/79 (100) 98 12/12/18 02:30 Room Air I&O- Last 24 Hours up to 6 AM 12/14/18 06:00 Intake Total 2530 ml Output Total 800 ml Balance 1730 ml Laboratory Data 24H LABS Laboratory Tests 2 12/13/18 17:29: Bedside Glucose (Misc Panel) 140H 12/13/18 22:08: Bedside Glucose (Misc Panel) 203H 12/14/18 04:56: Anion Gap 11, Glomerular Filtration Rate > 60.0, Blood Urea Nitrogen 12, Creat inine 0.50L, Sodium Level 133L, Potassium Level 3.9, Chloride Level 101, Carbon Dioxide Level 21, Calcium Level 8.0L 12/14/18 12:16: Bedside Glucose (Misc Panel) 235H CBC/BMP Laboratory Tests 12/14/18 04:56 Calcium Level 8.0 L PIA CHING MD Dec 14, 2018 12:37
[2018-12-14 17:00] VITALS: BP 125/62
[2018-12-14] MEDS: PANTOPRAZOLE 40MG TAB (PROTONIX) PO SCH (17:34)
[2018-12-14 20:00] VITALS: BP 121/55
[2018-12-14] MEDS: MONTELUKAST 10 MG TAB PO SCH (21:13)
[2018-12-14] MEDS: SIMVASTATIN 40 MG TAB PO SCH (21:13)
[2018-12-14 23:59] VITALS: BP 127/70
[2018-12-15 04:00] VITALS: BP 137/78
[2018-12-15 05:18] LABS: BLOOD UREA NITROGEN 13 MG/DL (7-18); CALCIUM LEVEL 8.2 MG/DL (8.8-10.2); CARBON DIOXIDE LEVEL 22 MEQ/L (21-32); CHLORIDE LEVEL 102 MEQ/L (98-107); CREATININE FOR GFR 0.54 MG/DL (0.55-1.30); GLOMERULAR FILTRATION RATE > 60.0 (>45); GLUCOSE, FASTING 316 MG/DL (70-100); SODIUM LEVEL 136 MEQ/L (136-145)
[2018-12-15] MEDS: ADVAIR HFA 115/21MCG INHALER INH SCH ×2 (07:42→20:27)
[2018-12-15 08:00] VITALS: BP 142/69
[2018-12-15] MEDS ORDERED: SLF 3 ML SYR IV PRN (08:00)
[2018-12-15] MEDS: VITAMIN E 400 INTERNATIONAL UNITS CAP PO SCH (09:34)
[2018-12-15] MEDS: ONDANSETRON 4MG/2ML VIAL (J2405) IV PRN (09:34)
[2018-12-15] MEDS: GABAPENTIN 300 MG CAP PO SCH ×2 (09:34→21:31)
[2018-12-15] MEDS: ENOXAPARIN 30 MG/0.3 ML SYR (J1650) SC SCH (09:34)
[2018-12-15] MEDS: ASPIRIN 81 MG ENTERIC TAB PO SCH (09:34)
[2018-12-15] MEDS: HumaLOG INSULIN (NovoLOG) PER UNIT SC SCH ×4 (09:34→21:00)
[2018-12-15] MEDS: MULTIVITAMINS/MINERALS THERAP 1 TAB PO SCH (09:35)
[2018-12-15] MEDS: ASCORBIC ACID 500 MG TAB PO SCH ×2 (09:35→21:31)
[2018-12-15] MEDS: DOCUSATE SODIUM 100 MG CAP PO SCH ×2 (09:35→21:31)
[2018-12-15] MEDS: ESCITALOPRAM OXALATE 10 MG TAB (LEXAPRO) PO SCH (09:35)
[2018-12-15] MEDS: ACETAMINOPHEN TAB 650MG DOSE (2X325MG) PO PRN ×3 (09:44→21:30)
[2018-12-15 12:00] VITALS: BP 119/67
--- NOTE | 2018-12-15 12:18 | IPNPDOC ---
Subjective Date Seen The patient was seen on 12/15/18. Subjective Chief Complaint/HPI Patient seen and examined at the bedside. She continues to be nauseous, but notes that this has been her baseline for several months. Denies any vomiting or abdominal pain. Objective Physical Examination General Exam: Positive: Alert, Cooperative, No Acute Distress, Other (cachectic appearing) Eye Exam: Positive: PERRLA, Conjunctiva & lids normal ENT Exam: Positive: Atraumatic, Other ENT (bitemporal wasting) Chest Exam: Positive: Diminished Heart Exam: Positive: Rate Normal, Normal S1, Normal S2 Abdomen Exam: Positive: Normal bowel sounds, Soft; Negative: Tenderness Extremity Exam: Negative: Tenderness, Swelling Skin Exam: Positive: Nl turgor and temperature Psych Exam: Positive: Oriented x 3 Assessment /Plan Plan/VTE VTE Prophylaxis Ordered?: Yes Plan Failure to thrive, Orthostatic Hypotension 2/2 Dehydration, Underlying Malignancy Improved with IV fluid hydration Physical therapy ordered for functional optimization We will cont to monitor the patient IDDM Insulin sliding scale ordered 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 Chao Follows with Dr. Quarles of oncology COPD, stable Nebs PRN Anxiety/depression Continue Lexapro Dyslipidemia Continue statin Hypertension, stable Continue meds as ordered Heart failure with preserved ejection fraction Compensated Lasix, spironolactone on hold DVT ppx: Lovenox SC Poor long-term prognosis VS, I&O, 24H, Fishbone Vital Signs/I&O Vital Signs Date Time Temp Pulse Resp B/P (MAP) Pulse Ox O2 Delivery O2 Flow Rate FiO2 12/15/18 08:00 97.4 92 18 142/69 (93) 97 12/12/18 02:30 Room Air I&O- Last 24 Hours up to 6 AM 12/15/18 06:00 Intake Total 2820 ml Output Total 275 ml Balance 2545 ml Laboratory Data 24H LABS Laboratory Tests 2 12/14/18 17:03: Bedside Glucose (Misc Panel) 180H 12/14/18 21:35: Bedside Glucose (Misc Panel) 197H 12/15/18 04:12: Anion Gap 12, Glomerular Filtration Rate > 60.0, Blood Urea Nitrogen 13, Creatinine 0.54L, Sodium Level 136, Potassium Level 4.0, Chloride Level 102, Carbon Dioxide Level 22, Calcium Level 8.2L 12/15/18 09:24: Bedside Glucose (Misc Panel) 384H 12/15/18 11:49: Bedside Glucose (Misc Panel) 278H CBC/BMP Laboratory Tests 12/15/18 04:12 Calcium Level 8.2 L PIA CHING MD Dec 15, 2018 12:18
[2018-12-15] MEDS: SLF 3 ML SYR IV SCH ×2 (13:43→21:31)
[2018-12-15 16:00] VITALS: BP 128/63
[2018-12-15] MEDS: PANTOPRAZOLE 40MG TAB (PROTONIX) PO SCH (17:18)
[2018-12-15 20:00] VITALS: BP 100/57
[2018-12-15] MEDS: SIMVASTATIN 40 MG TAB PO SCH (21:31)
[2018-12-15] MEDS: MONTELUKAST 10 MG TAB PO SCH (21:31)
[2018-12-16] VITALS (7 sets, daily range): BP systolic 104–132; BP diastolic 63–79
[2018-12-16 06:40] LABS: BLOOD UREA NITROGEN 12 MG/DL (7-18); CALCIUM LEVEL 8.7 MG/DL (8.8-10.2); CARBON DIOXIDE LEVEL 28 MEQ/L (21-32); CHLORIDE LEVEL 104 MEQ/L (98-107); CREATININE FOR GFR 0.52 MG/DL (0.55-1.30); GLOMERULAR FILTRATION RATE > 60.0 (>45); GLUCOSE, FASTING 117 MG/DL (70-100); POTASSIUM SERUM 3.4 MEQ/L (3.5-5.1); SODIUM LEVEL 136 MEQ/L (136-145)
[2018-12-16] MEDS: SLF 3 ML SYR IV SCH ×3 (06:42→20:57)
[2018-12-16] MEDS: HumaLOG INSULIN (NovoLOG) PER UNIT SC SCH ×4 (07:30→20:52)
[2018-12-16] MEDS ORDERED: POTASSIUM CHLORIDE 10 MEQ SR TABLET PO ONE (07:45)
[2018-12-16] MEDS: VITAMIN E 400 INTERNATIONAL UNITS CAP PO SCH (07:51)
[2018-12-16] MEDS: ENOXAPARIN 30 MG/0.3 ML SYR (J1650) SC SCH (07:51)
[2018-12-16] MEDS: ESCITALOPRAM OXALATE 10 MG TAB (LEXAPRO) PO SCH (07:51)
[2018-12-16] MEDS: GABAPENTIN 300 MG CAP PO SCH ×2 (07:51→20:56)
[2018-12-16] MEDS: ASCORBIC ACID 500 MG TAB PO SCH ×2 (07:51→20:56)
[2018-12-16] MEDS: DOCUSATE SODIUM 100 MG CAP PO SCH ×2 (07:52→20:56)
[2018-12-16] MEDS: ASPIRIN 81 MG ENTERIC TAB PO SCH (07:52)
[2018-12-16] MEDS: MULTIVITAMINS/MINERALS THERAP 1 TAB PO SCH (07:52)
[2018-12-16] MEDS: ADVAIR HFA 115/21MCG INHALER INH SCH ×2 (08:36→20:00)
--- NOTE | 2018-12-16 10:25 | IPNPDOC ---
Subjective Date Seen The patient was seen on 12/16/18. Subjective Chief Complaint/HPI Patient seen and examined the bedside. She continues to have decreased appetite and nausea. States that she has yet to speak to her definitively about hospice or palliative care. States that she is too weak to work with physical therapy, but is adamant about being able to get up and go home when she is feeling better. Objective Physical Examination General Exam: Positive: Alert, Cooperative, No Acute Distress, Other (cachectic appearing) Eye Exam: Positive: PERRLA, Conjunctiva & lids normal ENT Exam: Positive: Atraumatic, Other ENT (bitemporal wasting) Chest Exam: Positive: Diminished Heart Exam: Positive: Rate Normal, Normal S1, Normal S2 Abdomen Exam: Positive: Normal bowel sounds, Soft; Negative: Tenderness Extremity Exam: Negative: Tenderness, Swelling Skin Exam: Positive: Nl turgor and temperature Psych Exam: Positive: Oriented x 3 Assessment /Plan Plan/VTE VTE Prophylaxis Ordered?: Yes Plan Failure to thrive, Orthostatic Hypotension 2/2 Dehydration, Underlying Malignancy Improved with IV fluid hydration Physical therapy ordered for functional optimization We will cont to monitor the patient IDDM Insulin sliding scale ordered 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 Chao Follows with Dr. Quarles of oncology COPD, stable Nebs PRN Anxiety/depression Continue Lexapro Dyslipidemia Continue statin Hypertension, stable Continue meds as ordered Heart failure with preserved ejection fraction Compensated Lasix, spironolactone on hold DVT ppx: Lovenox SC Poor long-term prognosis--we will continue to discuss hospice/palliative care options with assistance of PFS with the patient and her . They have yet to make a decision about how they would like to proceed with goals of care at this time. VS, I&O, 24H, Fishbone Vital Signs/I&O Vital Signs Date Time Temp Pulse Resp B/P (MAP) Pulse Ox O2 Delivery O2 Flow Rate FiO2 12/16/18 08:00 98.0 97 17 129/72 (91) 99 12/12/18 02:30 Room Air I&O- Last 24 Hours up to 6 AM 12/16/18 06:00 Intake Total 1250 ml Output Total 1050 ml Balance 200 ml Laboratory Data 24H LABS Laboratory Tests 2 12/15/18 11:49: Bedside Glucose (Misc Panel) 278H 12/15/18 16:31: Bedside Glucose (Misc Panel) 167H 12/15/18 21:44: Bedside Glucose (Misc Panel) 97 12/16/18 03:35: Bedside Glucose (Misc Panel) 109 12/16/18 05:49: Anion Gap 4L, Glomerular Filtration Rate > 60.0, Blood Urea Nitrogen 12, Creatinine 0.52L, Sodium Level 136, Potassium Level 3.4L, Chloride Level 104, Carbon Dioxide Level 28, Calcium Level 8.7L CBC/BMP Laboratory Tests 12/16/18 05:49 Calcium Level 8.7 L PIA CHING MD Dec 16, 2018 10:25
[2018-12-16] MEDS: ONDANSETRON 4MG/2ML VIAL (J2405) IV PRN (10:32)
[2018-12-16] MEDS: PANTOPRAZOLE 40MG TAB (PROTONIX) PO SCH (17:00)
[2018-12-16] MEDS: SIMVASTATIN 40 MG TAB PO SCH (20:56)
[2018-12-16] MEDS: MONTELUKAST 10 MG TAB PO SCH (20:56)
[2018-12-17] MEDS: SLF 3 ML SYR IV SCH ×3 (05:15→20:40)
[2018-12-17 06:00] VITALS: BP 100/68
[2018-12-17 06:35] LABS: BLOOD UREA NITROGEN 12 MG/DL (7-18); CALCIUM LEVEL 8.4 MG/DL (8.8-10.2); CARBON DIOXIDE LEVEL 26 MEQ/L (21-32); CHLORIDE LEVEL 103 MEQ/L (98-107); GLOMERULAR FILTRATION RATE > 60.0 (>45); GLUCOSE, FASTING 161 MG/DL (70-100); POTASSIUM SERUM 4.3 MEQ/L (3.5-5.1); SODIUM LEVEL 135 MEQ/L (136-145)
[2018-12-17] MEDS: HumaLOG INSULIN (NovoLOG) PER UNIT SC SCH ×4 (07:13→20:28)
[2018-12-17] MEDS: ADVAIR HFA 115/21MCG INHALER INH SCH ×2 (07:18→20:37)
[2018-12-17] MEDS: ENOXAPARIN 30 MG/0.3 ML SYR (J1650) SC SCH (08:54)
[2018-12-17] MEDS: DOCUSATE SODIUM 100 MG CAP PO SCH ×2 (08:55→20:39)
[2018-12-17] MEDS: MULTIVITAMINS/MINERALS THERAP 1 TAB PO SCH (08:55)
[2018-12-17] MEDS: VITAMIN E 400 INTERNATIONAL UNITS CAP PO SCH (08:55)
[2018-12-17] MEDS: GABAPENTIN 300 MG CAP PO SCH ×2 (08:55→20:39)
[2018-12-17] MEDS: ESCITALOPRAM OXALATE 10 MG TAB (LEXAPRO) PO SCH (08:55)
[2018-12-17] MEDS: ASPIRIN 81 MG ENTERIC TAB PO SCH (08:55)
[2018-12-17] MEDS: ASCORBIC ACID 500 MG TAB PO SCH ×2 (08:55→20:40)
[2018-12-17 14:00] VITALS: BP 98/68
[2018-12-17] MEDS: PANTOPRAZOLE 40MG TAB (PROTONIX) PO SCH (17:31)
[2018-12-17] MEDS ORDERED: NS 500 ML IV PRN (18:15)
--- NOTE | 2018-12-17 18:27 | IPNPDOC ---
Text Note Date of Service The patient was seen on 12/17/18. NOTE S: patient still with intermittent hypotension and dizziness. Patient and cece krishnamurthy have decided on hospice and states he will be meeting with hospice AM at the house. Physical therapy recommends further 1-2 day treatment to improve her strength before discharging. Patient states has waterbed at home that is comfortable but no sure if she would be able to get in and out. She is inquiring about hospital bed. 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 Chao and Follows with Dr. Quarles of oncology Patient and have decided to return home with hospice. interviewing and meeting hospice at house on . DVT ppx: Lovenox SC Current Medications Medications (Trade) Dose Ordered Sig/Ralph Route PRN Reason Start Time Stop Time Status Last Admin Dose Admin Acetaminophen (Tylenol Tab) 650 mg Q4H PRN PO PAIN OR FEVER 12/12/18 01:00 12/15/18 21:30 Al Hydrox/Mg Hydrox/Simethicone (Mylanta) 30 ml DAILY PRN PO DYSPEPSIA 12/12/18 01:00 Ascorbic Acid (Vitamin C) 500 mg BID PO 12/12/18 21:00 12/17/18 08:55 Aspirin (Ecotrin) 81 mg DAILY PO 12/12/18 09:00 12/17/18 08:55 Dextrose (Dextrose 50%) 25 ml ASDIRECTED PRN IV SEE LABEL COMMENTS 12/12/18 01:15 Docusate Sodium (Colace) 100 mg BID PO 12/12/18 09:00 12/17/18 08:55 Enoxaparin Sodium (Lovenox) 30 mg DAILY SC 12/12/18 09:00 12/17/18 08:54 Escitalopram Oxalate (Lexapro) 20 mg DAILY PO 12/12/18 09:00 12/17/18 08:55 Gabapentin (Neurontin) 300 mg BID PO 12/12/18 21:00 12/17/18 08:55 Gabapentin (Neurontin) 300 mg TID PO 12/12/18 16:00 12/12/18 16:00 DC Glucagon (Glucagon) 1 mg ASDIRECTED PRN SC SEE LABEL COMMENTS 12/12/18 01:15 Glucose (Glucose) 16 GM ASDIRECTED PRN PO SEE LABEL COMMENTS 12/12/18 01:15 Home Med (Med Rec Complete!) ASDIRECTED XX 12/12/18 01:45 12/12/18 01:46 DC Insulin Human Lispro (HumaLOG INSULIN) SEE PROTOCOL TABLE AC SC 12/12/18 07:30 12/17/18 17:32 Insulin Human Lispro (HumaLOG INSULIN) SEE PROTOCOL TABLE QHS SC 12/11/18 21:00 Magnesium Hydroxide (Milk Of Magnesia) 30 ml DAILY PRN PO CONSTIPATION 12/12/18 01:00 12/12/18 08:09 Montelukast Sodium (Singulair) 10 mg QHS PO 12/12/18 21:00 12/16/18 20:56 Multivitamins (Theragram-M) 1 tab DAILY PO 12/12/18 09:00 12/17/18 08:55 Ondansetron HCl (ZOFRAN INJection) 4 mg Q4HP PRN IV NAUSEA OR VOMITING 12/13/18 08:15 12/16/18 10:32 Pantoprazole Sodium (Protonix) 40 mg QPM@1800 PO 12/12/18 18:00 12/17/18 17:31 Salmeterol Xinafoate/ Fluticasone (Advair Hfa 115/ 21) 2 puff RBID INH 12/12/18 20:00 12/17/18 07:18 Simvastatin (Zocor) 40 mg QHS PO 12/12/18 21:00 12/16/18 20:56 Sodium Chloride 1,000 ml @ 70 mls/hr [id number] IV 12/12/18 01:15 12/15/18 07:43 DC 12/14/18 21:43 Sodium Chloride (Saline Lock Flush) 2 ml ASDIRECTED PRN IV SEE LABEL COMMENTS 12/15/18 08:00 Sodium Chloride (Saline Lock Flush) 2 ml SLF IV 12/15/18 14:00 12/17/18 14:09 Vitamin E (Vitamin E) 400 units DAILY PO 12/12/18 09:00 12/17/18 08:55 VS,Fishbone, I+O VS, Fishbone, I+O Laboratory Tests 12/17/18 05:19 Calcium Level 8.4 L Vital Signs Date Time Temp Pulse Resp B/P (MAP) Pulse Ox O2 Delivery O2 Flow Rate FiO2 12/17/18 14:00 98.6 103 18 98/68 (78) 96 12/12/18 02:30 Room Air I&O- Last 24 Hours up to 6 AM 12/17/18 06:00 Intake Total 1115 ml Output Total 200 ml Balance 915 ml ALEXIS MIJARES DO Dec 17, 2018 18:27
[2018-12-17] MEDS: MONTELUKAST 10 MG TAB PO SCH (20:39)
[2018-12-17] MEDS: SIMVASTATIN 40 MG TAB PO SCH (20:40)
[2018-12-17 22:00] VITALS: BP 123/71
[2018-12-18] MEDS: SLF 3 ML SYR IV SCH ×3 (05:32→20:31)
[2018-12-18 06:00] VITALS: BP 116/79
[2018-12-18 06:28] LABS: BLOOD UREA NITROGEN 14 MG/DL (7-18); CARBON DIOXIDE LEVEL 27 MEQ/L (21-32); CHLORIDE LEVEL 101 MEQ/L (98-107); GLOMERULAR FILTRATION RATE > 60.0 (>45); GLUCOSE, FASTING 216 MG/DL (70-100); POTASSIUM SERUM 3.9 MEQ/L (3.5-5.1); SODIUM LEVEL 135 MEQ/L (136-145)
[2018-12-18] MEDS: ADVAIR HFA 115/21MCG INHALER INH SCH ×2 (07:37→20:22)
[2018-12-18] MEDS: HumaLOG INSULIN (NovoLOG) PER UNIT SC SCH ×4 (07:44→21:00)
[2018-12-18] MEDS: ENOXAPARIN 30 MG/0.3 ML SYR (J1650) SC SCH (07:45)
[2018-12-18] MEDS: ASPIRIN 81 MG ENTERIC TAB PO SCH (07:46)
[2018-12-18] MEDS: DOCUSATE SODIUM 100 MG CAP PO SCH ×2 (07:46→20:31)
[2018-12-18] MEDS: ESCITALOPRAM OXALATE 10 MG TAB (LEXAPRO) PO SCH (07:46)
[2018-12-18] MEDS: MULTIVITAMINS/MINERALS THERAP 1 TAB PO SCH (07:46)
[2018-12-18] MEDS: ASCORBIC ACID 500 MG TAB PO SCH ×2 (07:46→20:31)
[2018-12-18] MEDS: GABAPENTIN 300 MG CAP PO SCH ×2 (07:47→20:31)
[2018-12-18] MEDS: VITAMIN E 400 INTERNATIONAL UNITS CAP PO SCH (07:47)
[2018-12-18 14:00] VITALS: BP 118/62
[2018-12-18] MEDS: PANTOPRAZOLE 40MG TAB (PROTONIX) PO SCH (17:40)
[2018-12-18] MEDS: SIMVASTATIN 40 MG TAB PO SCH (20:31)
[2018-12-18] MEDS: MONTELUKAST 10 MG TAB PO SCH (20:31)
[2018-12-18 22:00] VITALS: BP 117/63
[2018-12-19] MEDS: ONDANSETRON 4MG/2ML VIAL (J2405) IV PRN (05:48)
[2018-12-19] MEDS: SLF 3 ML SYR IV SCH (05:48)
[2018-12-19 05:57] LABS: BLOOD UREA NITROGEN 14 MG/DL (7-18); CALCIUM LEVEL 8.2 MG/DL (8.8-10.2); CARBON DIOXIDE LEVEL 24 MEQ/L (21-32); CHLORIDE LEVEL 98 MEQ/L (98-107); CREATININE FOR GFR 0.55 MG/DL (0.55-1.30); GLOMERULAR FILTRATION RATE > 60.0 (>45); GLUCOSE, FASTING 359 MG/DL (70-100); POTASSIUM SERUM 3.9 MEQ/L (3.5-5.1); SODIUM LEVEL 133 MEQ/L (136-145)
[2018-12-19 06:00] VITALS: BP 104/78
[2018-12-19] MEDS: ADVAIR HFA 115/21MCG INHALER INH SCH (07:15)
[2018-12-19] MEDS: HumaLOG INSULIN (NovoLOG) PER UNIT SC SCH ×3 (07:30→11:41)
--- NOTE | 2018-12-19 07:31 | IPNPDOC ---
Text Note Date of Service The patient was seen on 12/18/18. NOTE S: patient states ,"I'm going home tomorrow, no matter what". meeting with hospice today in anticipation of patient returning home tomorrow. 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, Brain Metastasis, with suspicious left adrenal mass 6) COPD - stable without exacerbation 7) anxiety /depression - stable with current treatment 8) benign essential HTN - stable - hold coreg/lisinoril due to hypotension 9) history of CHF (not acute, compensated, unknown sys/diastolic) with preserved EF - lasix and spironolactone on hold due to dehydration P: Hospice with possible d/c home tomorrow VS,Damián, I+O VS, Damián, I+O Laboratory Tests 12/18/18 05:04 Calcium Level 8.0 L Vital Signs Date Time Temp Pulse Resp B/P (MAP) Pulse Ox O2 Delivery O2 Flow Rate FiO2 12/18/18 14:00 96.5 97 18 118/62 (80) 99 12/12/18 02:30 Room Air I&O- Last 24 Hours up to 6 AM 12/18/18 06:00 Intake Total 690 ml Output Total 0 ml Balance 690 ml ALEXIS MIJARES DO Dec 18, 2018 16:59
[2018-12-19] MEDS: DOCUSATE SODIUM 100 MG CAP PO SCH (08:31)
[2018-12-19] MEDS: ASCORBIC ACID 500 MG TAB PO SCH (08:31)
[2018-12-19] MEDS: ASPIRIN 81 MG ENTERIC TAB PO SCH (08:31)
[2018-12-19] MEDS: GABAPENTIN 300 MG CAP PO SCH (08:31)
[2018-12-19] MEDS: MULTIVITAMINS/MINERALS THERAP 1 TAB PO SCH (08:31)
[2018-12-19] MEDS: ESCITALOPRAM OXALATE 10 MG TAB (LEXAPRO) PO SCH (08:31)
[2018-12-19] MEDS: ENOXAPARIN 30 MG/0.3 ML SYR (J1650) SC SCH (08:32)
[2018-12-19] MEDS: VITAMIN E 400 INTERNATIONAL UNITS CAP PO SCH (09:00)
[2018-12-19] MEDS: ACETAMINOPHEN TAB 650MG DOSE (2X325MG) PO PRN (11:26)
--- NOTE | 2018-12-19 19:32 | DS.PDOC ---
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 HISTORY OF PRESENT ILLNESS: 63 years old white female with past medical history of adenocarcinoma of lung with extensive metastasis had an episode of syncope following by follow up striking her head. Patient is not on any blood thinners. Patient was found to be orthostatic in the ED and we will called in to admit patient for syncope secondary to orthostasis and possible obtaine a hospice care consult in a.m. due to patient's poor prognosis. See H&P for details HOSPITAL COURSE: patient admitted. given IVF and held antihypertensives and diuretics. Her orthostatic BP resolved and she still had intermittent dizziness due to underlying metastatic disease. PT consulted and patient was able to use rolling walker for gait stability. She is being discharge home with hospice DISCHARGE MEDICATIONS: Please see below. ALLERGIES: Please see below. PHYSICAL EXAMINATION ON DISCHARGE: VITAL SIGNS: Please see below. General: AAOx3 LABORATORY DATA: Please see below. PROGNOSIS: POOR ACTIVITY: as tolerated with walker DIET: regular as tolerated DISCHARGE PLAN: discharge home with hospice DISPOSITION: Hospice DISCHARGE CONDITION: stable TIME SPENT ON DISCHARGE: 15 minutes. Vital Signs/I&Os Vital Signs Date Time Temp Pulse Resp B/P (MAP) Pulse Ox O2 Delivery O2 Flow Rate FiO2 12/19/18 06:00 98.3 94 17 104/78 (87) 97 I&O- Last 24 Hours up to 6 AM 12/19/18 06:00 Intake Total 1050 ml Balance 1050 ml Laboratory Data Labs 24H Laboratory Tests 2 12/18/18 16:56: Bedside Glucose (Misc Panel) 207H 12/18/18 21:44: Bedside Glucose (Misc Panel) 205H 12/19/18 05:11: Anion Gap 11, Glomerular Filtration Rate > 60.0, Blood Urea Nitrogen 14, Creatinine 0.55, Sodium Level 133L, Potassium Level 3.9, Chloride Level 98, Carbon Dioxide Level 24, Calcium Level 8.2L 12/19/18 11:31: Bedside Glucose (Misc Panel) 455H CBC/BMP Laboratory Tests 12/19/18 05:11 Calcium Level 8.2 L FSBS Laboratory Tests Test 12/18/18 16:56 12/18/18 21:44 12/19/18 11:31 Range/Units Bedside Glucose (Misc Panel) 207 205 455 80-115 MG/DL Discharge Medications Scheduled Ascorbic Acid (Vitamin C) 500 Mg Tab, 500 MG PO BID, (Reported) Aspirin (Aspirin EC) 81 Mg Tab, 81 MG PO DAILY, (Reported) Carlitos/D3/Mag11/Zinc/Information Analyst/Ted/Bor (Caltrate 600+D Plus Tablet) 1 Each Tablet, 1 TAB PO BID, (Reported) Escitalopram Oxalate (Escitalopram Oxalate) 20 Mg Tab, 20 MG PO DAILY, (Reported) Gabapentin (Gabapentin) 300 Mg Cap, 300 MG PO TID, (Reported) Insulin Degludec (Tresiba Flextouch U-100) 100 Unit/Ml Inj, 10 UNIT SC DAILY, (Reported) Insulin Human Lispro (Novolog) 100 U/Ml Inj, 1 DOSE SC AC, (Reported) PER SLIDING SCALE Montelukast Sodium (Montelukast Sodium) 10 Mg Tab, 10 MG PO QHS, (Reported) Multivitamins (Thera M Plus Tablet) 1 Each Tablet, 1 TAB PO DAILY, (Reported) Pantoprazole Sodium (Pantoprazole Sodium) 40 Mg Tab, 40 MG PO QPM, (Reported) DINNERTIME Salmeterol/Fluticasone (Advair 250-50 Diskus) 1 Each Blst.w.dev, 1 PUFF INH BID, (Reported) Simvastatin (Simvastatin) 40 Mg Tab, 40 MG PO QHS, (Reported) Vitamin E (Vitamin E) 400 Unit Cap, 400 UNIT PO DAILY, (Reported) Scheduled PRN Ondansetron HCl (Ondansetron HCl) 8 Mg Tablet, 8 MG PO TID PRN for NAUSEA OR VOMITING, (Reported) Propylene Glycol/Peg 400/Pf (Systane 0.3-0.4% Eye Drop) 1 Each Droperette, 1 DROP OU QID PRN for DRY EYES, (Reported) Allergies Coded Allergies: Penicillins (Verified Allergy, Unknown, 12/11/18) Sulfa (Sulfonamide Antibiotics) (Verified Allergy, Unknown, 12/11/18) ALEXIS MIJARES DO Dec 19, 2018 11:58
== END 2018-12-19 13:36 | disposition hospice, home (50) | DRG 55 ==
LOC: M ED 20:35 → M ED INP 20:36 → M PCU 12-12 02:50 → OBSVTOIN 12-16 10:46 → M MSPAV 12-16 15:09
PROVIDERS: ADMIT Internal Medicine; ATTEND Family Medicine
DX: C79.31 Secondary malignant neoplasm of brain (principal); C34.91 Malignant neoplasm of unspecified part of right bronchus or lung; I50.32 Chronic diastolic (congestive) heart failure; I11.0 Hypertensive heart disease with heart failure; E78.5 Hyperlipidemia, unspecified; E11.9 Type 2 diabetes mellitus without complications; R62.7 Adult failure to thrive; I95.1 Orthostatic hypotension; R42 Dizziness and giddiness; Z66 Do not resuscitate; Z79.4 Long term (current) use of insulin; Z79.899 Other long term (current) drug therapy; Z79.82 Long term (current) use of aspirin; Z88.0 Allergy status to penicillin; Z88.2 Allergy status to sulfonamides